=== PATIENT | female | born 1980 ===

== ENCOUNTER 2020-09-02 07:47 | Outpatient (REF) | payer OTHER, SELFPAY ==
--- NOTE | ~2020-09-02 | MM_ITS ---
EXAMINATION: MM DIAGNOSTIC DIGITAL BREAST TOMOSYNTHESIS, BILATERAL US TARGETED BREAST, LEFT CLINICAL INFORMATION: Left breast pain upper outer aspect. Status post bilateral saline breast implants. The lifetime risk of breast cancer based on the Tyrer-Cuzick Model is 7.2%. COMPARISON: Mammography: None TECHNIQUE: Digital mammography is performed in craniocaudal and mediolateral oblique views. Digital breast tomosynthesis is performed in implant-displaced craniocaudal and implant-displaced mediolateral oblique views. Synthesized 2D images are generated from the tomosynthesis. Computer-aided detection (CAD) is performed for this exam. Bilateral implant displaced views. Exaggerated left craniocaudal view. FINDINGS: The breasts are heterogeneously dense, which may obscure small masses (ACR BI-RADS breast composition Category c). The implant contours are unremarkable. In region of palpable abnormality, there is noted to be a circumscribed approximately 1.0 x 0.8 cm density. No suspicious grouping of microcalcifications identified. No region of architectural distortion. Targeted left breast ultrasound demonstrated at the 3 o'clock position in region of palpable abnormality 8 o'clock position 8 cm from the nipple a 9 x 6 x 9 mm simple cyst corresponding to the mammographic abnormality. Results are provided to the patient at time of visit by the technologist. MM/MM tomosynthesis diag imp BI IMPRESSION: Palpable abnormality of the left breast corresponds to a simple cyst. ASSESSMENT: BI-RADS 2: Benign RECOMMENDATION: Routine annual mammography screening due in 12 months. This patient's information was entered into a reminder system with a target due date for their next mammogram.
--- NOTE | ~2020-09-02 | US_ITS ---
EXAMINATION: US DIAGNOSTIC ULTRASOUND BREAST, LEFT CLINICAL INFORMATION: Palpable abnormality and pain upper outer aspect of the left breast.. COMPARISON: Mammography of same day. TECHNIQUE: Ultrasound of the breast is performed with real-time salcido scale imaging and color Doppler. FINDINGS: Targeted left breast ultrasound demonstrated at the 3:00 position in region of palpable abnormality 8:00 position 8 cm from the nipple a 9 x 6 x 9 mm simple cyst corresponding to the mammographic abnormality. Results are provided to the patient at time of visit by the technologist. US/US breast LT limited IMPRESSION: Palpable abnormality of the left breast corresponds to a simple cyst. ASSESSMENT: BI-RADS 2: Benign RECOMMENDATION: Routine annual mammography screening due in 12 months.
== END 2020-09-02 07:48 | disposition home or self-care (01) ==
LOC: HO.MAMMO 07:47
PROVIDERS: PCP Family Medicine; Visit Provider Emergency Medicine
DX: N63.21 Unspecified lump in the left breast, upper outer quadrant (principal)
CPT/HCPCS: 76642; 77062; 77066

== ENCOUNTER → 2020-09-21 10:20 | Outpatient (BNVA) | payer OTHER, SELFPAY | PROVIDERS: PCP Family Medicine; Visit Provider Surgery | DX: N60.02 Solitary cyst of left breast (principal) | CPT/HCPCS: 99202 ==

== ENCOUNTER → 2020-10-27 10:00 | Outpatient (BNVA) | payer OTHER, SELFPAY | PROVIDERS: PCP Family Medicine; Visit Provider Surgery | DX: K43.9 Ventral hernia without obstruction or gangrene (principal) | CPT/HCPCS: 99212 ==

== ENCOUNTER 2020-11-24 07:53 | Outpatient (REF) | payer MEDICAID, SELFPAY ==
--- NOTE | ~2020-11-24 | US_ITS ---
EXAMINATION: US ABDOMEN LIMITED CLINICAL INFORMATION: Swelling above the umbilicus. COMPARISON: Ultrasound abdomen 08/05/2018. TECHNIQUE: Real-time imaging of the right upper quadrant abdominal viscera, superior to umbilicus. FINDINGS: FREE FLUID: There is a defect in the midline abdominal wall and hypoechoic soft tissue suggestive of a small supraumbilical hernia. The neck of the hernia measures 9 mm. No peristalsing bowel is seen and this presumably contains fat. US/US abdomen limited IMPRESSION: Small supraumbilical hernia.
== END 2020-11-24 07:54 | disposition home or self-care (01) ==
LOC: HO.US 07:53
PROVIDERS: PCP Family Medicine; Visit Provider Surgery
DX: K43.9 Ventral hernia without obstruction or gangrene (principal)
CPT/HCPCS: 76705

== ENCOUNTER → 2020-12-09 08:47 | Outpatient (BNVA) | payer MEDICAID, SELFPAY | PROVIDERS: PCP Family Medicine; Referring Provider Family Medicine; Visit Provider Surgery | DX: K43.9 Ventral hernia without obstruction or gangrene (principal) | CPT/HCPCS: 99212 ==

== ENCOUNTER 2021-11-22 07:29 | Outpatient (REF) | payer MEDICAID, SELFPAY ==
--- NOTE | ~2021-11-22 | MM_ITS ---
EXAMINATION: MM SCREENING DIGITAL BREAST TOMOSYNTHESIS, BILATERAL CLINICAL INFORMATION: Screening. Asymptomatic. The lifetime risk of breast cancer based on the Tyrer-Cuzick Model is 7%. COMPARISON: Mammography: 09/02/2020 (diagnostic, baseline); targeted left breast ultrasound 09/02/2020 TECHNIQUE: Digital mammography is performed in craniocaudal and mediolateral oblique views along with computer-aided detection (CAD). Digital breast tomosynthesis is performed in implant-displaced craniocaudal and implant-displaced mediolateral oblique views along with computer-aided detection (CAD). Synthesized 2D images are generated from the tomosynthesis. FINDINGS: There are scattered areas of fibroglandular density (ACR BI-RADS breast composition Category b). Implant contours are smooth and similar to prior study. There is minor bilateral scarring and stable minor asymmetries. No significant mass or architectural abnormality. Left cyst noted on prior imaging appears to have regressed. No abnormal calcifications. The skin contours are smooth. No significant changes. MM/MM tomosynthesis screen imp BI IMPRESSION: No significant changes from prior exam. ASSESSMENT: BI-RADS 2: Benign RECOMMENDATION: Routine annual mammography screening. This patient's information was entered into a reminder system with a target due date for their next mammogram.
== END 2021-11-22 07:30 | disposition home or self-care (01) ==
LOC: HO.MAMMO 07:29
PROVIDERS: Visit Provider Family Medicine
DX: Z12.31 Encounter for screening mammogram for malignant neoplasm of breast (principal)
CPT/HCPCS: 77063; 77067

== ENCOUNTER → 2022-06-07 11:04 | Outpatient (BNVA) | payer MEDICAID, SELFPAY | PROVIDERS: PCP Family Medicine; Referring Provider Family Medicine; Visit Provider Internal Medicine Cardiovascular Disease | DX: R00.2 Palpitations (principal) | CPT/HCPCS: 93005; 99202 ==

== ENCOUNTER → 2022-06-09 07:33 | Outpatient (REF) | payer MEDICAID, SELFPAY ==
--- NOTE | 2022-06-09 07:38 | HM_ITS ---
* Total monitoring time 30 days. Wear time 15 days. Wear time compliance 53%. * Average ventricular rate 79/Min. Range 55 to 141/Min. About 13% the time , rate > 60/Min. * No significant ectopy or other arrhythmias. * No significant bradycardia or pauses. * Patient activations correlated with sinus rhythm or sinus tachycardia. MTDD
--- NOTE | 2022-06-09 07:38 | CA_ITS ---
Transthoracic Echocardiogram Patient (Last, First, Middle): Adleaida Husain B Gender: Female Date of : 1980 Age: 42 Procedure Date: 06/09/2022 Procedure Type: Transthoracic Echocardiogram Location: OP Height: 149.86 cm Weight: 63.5 kg BSA: 1.58 m2 Heart Rate: bpm BP: 125 / 70 mmHg Spa Concierge: Referring MD: Wood Hall MD Health Care Coach: Wood Hall MD Symptoms: R00.2 - Palpitations Study Quality: Good ECG Rhythm: Sinus Conclusions: - Normal LV systolic function with grade 1 diastolic dysfunction, otherwise normal study Findings Left Ventricle Normal left ventricular size, thickness, and systolic function. The visually estimated ejection fraction is between 60-65%. Spectral Doppler is indicative of an impaired relaxation filling pattern. E/E prime ratio is <8, consistent with normal filling pressures. Evidence suggests grade I (mild) diastolic dysfunction. Right Ventricle Normal right ventricular cavity size and systolic function. Atria Both atria are normal in size. There is no evidence of interatrial shunt. Aortic Valve Normal aortic valve structure and function. There is no aortic valve stenosis. There is no aortic valve regurgitation. Mitral Valve Normal mitral valve structure and function. There is trace mitral valve regurgitation. There is no mitral valve stenosis. Pulmonic Valve The pulmonic valve is likely normal. There is trace pulmonic valve regurgitation. Tricuspid Valve Normal tricuspid valve structure. The right ventricular systolic pressure is normal. The right ventricular systolic pressure is 23 mmHg. Normal right atrial pressure. There is no evidence of pulmonary hypertension. Great Vessels All visible segments of the aorta are normal in size. The pulmonary artery was not well visualized. Venous The inferior vena cava is normal in size and collapses greater than 50% with inspiration. Pericardium/Pleural There is no evidence of pericardial effusion. Prior Study Comparison No prior study available for comparison. Measurements 2D Linear Measurements IVSd: 0.92 0.6-0.9/0.6-1.0 cm LVIDd: 4.14 3.9-5.3/4.2-5.9 cm LVIDd Index: 2.62 2.4-3.2/2.2-3.1 cm/m2 LVIDs: 2.57 2.0-3.6 cm LVPWd: 0.91 0.7-1.1 cm Ao Root: 2.80 2.1-3.5 cm LA Diam: 3.40 2.7-3.8/3.0-4.0 cm LAIDs Index: 2.15 1.5-2.3 cm/m2 LV Mass: 147.27 67-162/88-224 g LV Mass Index: 93.21 43-95/49-115 g/m2 LVOT Diam: 1.90 3.0+(-)1.3 cm 2D Systolic Function EF 4C: 65.50 >55% EF 2C: 63.30 >55% EF BiP: 64.10 >55% Mitral Valve MV Pk E: 0.59 MV PK A: 0.80 MV Decel Time: 254.00 E/A: 0.70 E'Lateral: 9.57 E'Medial: 9.14 E/E' Med: 6.50 E/E' Lat: 6.20 PHT: 74.00 MVA PHT: 2.97 Decel Butts: 2.33 Aortic Valve AoV Pk Kirby: 1.19 AoV Mn Kirby: 0.74 AoV VTI: 0.31 AoV Pk Grad: 6.00 Aov Mn Grad: 3.00 ROHAN Cont.VTI: 2.01 LVOT LVOT Pk Kirby: 0.87 LVOT Mn Kirby: 0.53 LVOT VTI: 0.22 LVOT Pk Grad: 3.00 LVOT Mn Grad: 1.00 LVOT Diam: 1.90 LVOT Area: 2.84 Diastolic Function MV Pk E: 0.59 MV Pk A: 0.80 E/A: 0.70 E'Medial: 9.14 E/E' Med: 6.50 E' Laterial: 9.57 E/E' Lat: 6.20 Right Ventricle TAPSE (mm): 26.00 TVS' Kirby: 11.00 Tricuspid Valve TR Pk Kirby: 2.24 TR Pk Grad: 20.00 RA Press: 3.00 RVSP: 23.00 Great Vessels Aorta Ao Root-2D: 2.80 2.0-3.7 cm Ao Asc: 2.70 2.1-3.4 cm Pulmonary Valve PV Pk Kirby: 0.91 Peak PV Grad: 3.00 Updated in Other Vendor System with Status of Final Cristofer Guillen MD electronically signed on 06/10/2022 11:29:38 AM with status of Final
== END ==
LOC: HO.CARD 07:33
PROVIDERS: PCP Family Medicine; Visit Provider Internal Medicine Cardiovascular Disease
DX: R00.2 Palpitations (principal)
CPT/HCPCS: 93270; 93306

== ENCOUNTER 2023-01-16 12:20 | Emergency (ER) | payer OTHER, MEDICAID, SELFPAY ==
[2023-01-16 12:55] VITALS: BP 134/85; PULSE 75; RESP 18; TEMP 36.2; O2SAT 98; BMI 28.6
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
== END 2023-01-16 13:25 | disposition home or self-care (01) ==
PROVIDERS: Emergency Provider Emergency Medicine; PCP Family Medicine
DX: S29.012A Strain of muscle and tendon of back wall of thorax, initial encounter (principal); V43.62XA Car passenger injured in collision with other type car in traffic accident, initial encounter; Y93.9 Activity, unspecified; Y92.410 Unspecified street and highway as the place of occurrence of the external cause; Y99.9 Unspecified external cause status; Z79.899 Other long term (current) drug therapy
CPT/HCPCS: 99282; 99283

== ENCOUNTER 2023-02-20 11:49 | Outpatient (REF) | payer OTHER, MEDICAID, SELFPAY ==
[2023-02-22 09:11] LABS: BV Int Neg Control Negative (Negative); BV Int Pos Control Positive (Positive)
== END 2023-02-20 11:50 | disposition home or self-care (01) ==
LOC: HO.LNP 11:49
PROVIDERS: Visit Provider Family Medicine
DX: B37.31 Acute candidiasis of vulva and vagina (principal); N89.8 Other specified noninflammatory disorders of vagina
CPT/HCPCS: 87086; 87088; 87186; 87480; 87510; 87660

== ENCOUNTER 2023-05-28 10:21 | Outpatient (REF) | payer OTHER, MEDICAID, SELFPAY ==
[2023-05-28 14:25] LABS: MANUAL DIFF FLAG NO
[2023-05-28 14:29] LABS: Basophils Percent Auto 0.5 % (0-2); Eosinophils Absolute Auto 0.1 X10*3/uL (0.0-0.4); Eosinophils Percent Auto 3.7 % (0-4); Hematocrit 43.7 % (37.0-47.0); Hemoglobin 14.4 g/dl (12.0-16.0); Imm Gran Abs Auto 0.01 X10*3/uL (0.00-0.03); Imm Gran Pct Auto 0.3 % (0.0-0.4); Lymphocytes Absolute Auto 1.9 X10*3/uL (1.2-4.9); Lymphocytes Percent Auto 50.9 % (20-40); Mean Corpuscular Hemoglobin 29.6 pg (27.0-33.0); Mean Corpuscular Volume 89.7 fL (80.0-98.0); Mean Platelet Volume 11.3 fL (9.4-12.3); Monocytes Absolute Auto 0.3 X10*3/uL (0.1-1.2); Monocytes Percent Auto 6.6 % (2-11); Neutrophils Absolute Auto 1.4 x10*3/uL (2.0-8.3); Platelet Count 235 X10*3/uL (160-400); Red Blood Count 4.87 X10*6/uL (4.20-5.50); White Blood Count 3.8 X10*3/uL (4.8-10.8)
[2023-05-28 14:39] LABS: Anion Gap 11 (12-20); Blood Urea Nitrogen 9 mg/dL (9-16); Calcium 9.8 mg/dL (8.4-10.2); Carbon Dioxide 27 mmol/L (22-29); Chloride 103 mmol/L (96-108); Estimated Glomerular Filt Rate > 60; Glucose Fasting 98 mg/dL (60-99); Potassium 4.1 mmol/L (3.3-5.1); Sodium 137 mmol/L (135-145)
[2023-05-28 15:09] LABS: Erythrocyte Sedimentation Rate 4 MM/HR (0-20)
[2023-05-29 21:48] LABS: Anti DNA DS Antibody <1 IU/mL
[2023-05-29 23:09] LABS: Complement C3 128 mg/dL (83-193)
[2023-06-01 07:44] LABS: Anti Nuclear Antibody Screen NEGATIVE (NEGATIVE)
== END 2023-05-28 10:22 | disposition home or self-care (01) ==
LOC: HO.CHCLDS 10:21
PROVIDERS: Visit Provider Family Medicine
DX: M32.9 Systemic lupus erythematosus, unspecified (principal); H35.069 Retinal vasculitis, unspecified eye
CPT/HCPCS: 36415; 80048; 85025; 85652; 86038; 86160; 86225

== ENCOUNTER 2023-05-28 13:09 | Emergency (ER) | payer MEDICAID, SELFPAY | END 2023-05-28 16:09 | disposition left against medical advice (07) | PROVIDERS: Emergency Provider Emergency Medicine; PCP Family Medicine | DX: R51.9 Headache, unspecified (principal) ==

== ENCOUNTER 2023-05-29 07:12 | Emergency (ER) | payer MEDICAID, SELFPAY ==
--- NOTE | ~2023-05-29 | CT_ITS ---
EXAMINATION: CT HEAD WITHOUT CONTRAST CLINICAL INFORMATION: Headache COMPARISON: None available. TECHNIQUE: Contiguous axial imaging was performed from the skull base to vertex without intravenous administration of contrast. This CT examination was performed using dose optimization techniques as appropriate, variously including the following: *Automated exposure control *Adjustment of mA and/or kV according to patient size (this includes techniques or standardized protocols for targeted exams where dose is matched to indication/reason for exam; i.e. extremities or head) *Use of iterative reconstruction technique DLP: 545 mGy-cm FINDINGS: The ventricles and sulci are normal in size and configuration. No acute hemorrhage, mass effect or shift is evident. Villa-white differentiation is maintained. In the posterior fossa, the brainstem, cerebellum and fourth ventricle image normally. The orbits and calvarium are intact. The paranasal sinuses and mastoid air cells are well pneumatized and clear. CT/CT head/brain wo IV con IMPRESSION: 1. Unremarkable noncontrast brain CT. No acute hemorrhage, mass effect or shift.
[2023-05-29 07:17] VITALS: BP 111/75; PULSE 78; RESP 18; TEMP 36.1; O2SAT 97; BMI 28.3
--- NOTE | 2023-05-29 07:57 | ED_ITS ---
HPI - Headache General Chief Complaint: Headache Stated Complaint: Headache L side Time Seen by Provider: 05/29/23 07:56 Source: patient Mode of arrival: ambulatory Limitations: no limitations History of Present Illness HPI Narrative: 43-year-old female presents to the emergency department for evaluation of headache, the past few days not improving, patient reports headaches localized to the back of her head worse on the left side, describes sharp, intermittent pain, /10, she tells me this weekend the pain was much worse. Denies any associated trauma. Tells me this does not feel like her typical headache it feels more painful and is usually not the back of her head. Patient denies dizziness, visual disturbances, sinus pain or pressure, nausea, vomiting, abdominal pain, changes in voice, weakness, fevers, chills, neck pain. Related Data Previous Rx's Medication Instructions Recorded cyclobenzaprine 5 mg tablet 5 mg PO TID PRN muscle spasm #12 01/16/23 tabs lidocaine 5 % topical patch 1 patch topical DAILY #15 ea 01/16/23 ketorolac 10 mg tablet 10 mg PO TID PRN pain 5 days #15 05/29/23 tabs Allergies Allergy/AdvReac Type Severity Reaction Status Date / Time No Known Allergies Allergy Verified 05/29/23 07:22 Review of Systems 2 Review of Systems: Constitutional : No Weight loss, No Fever, No Chills, No Fatigue, No Malaise ENT/Mouth : No sore throat, No Rhinorrhea Eyes: No Eye Pain, No Swelling, No Redness Cardiovascular : No Chest Pain, No SOB, No Dyspnea on Exertion, No Orthopnea, No Edema, No Palpitations Respiratory : No Cough, No Sputum, No Wheezing Gastrointestinal : No Nausea, No Vomiting, No Diarrhea, No Constipation, No abdominal Pain, No Hematochezia, No Melena Genitourinary : No Dysuria, No Urinary Frequency, No Hematuria, Musculoskeletal : No joint pain, No Myalgias, No Joint Swelling Skin : No Skin Lesions, No rash Neuro : No Weakness, No Numbness, No Dizziness, + Headache Psych : No Anxiety/Panic, No Depression All other systems reviewed and are negative Yes all other systems are reviewed and are negative [facility] Past Medical History Attestation statement: The following information was validated with the patient. Source: old records reviewed and nursing notes reviewed Medical History (Updated 05/29/23 @ 09:14 by HODA Burger) Lupus Surgical History History of abdominoplasty History of breast augmentation (2018) Social History Social History (Updated 06/07/22 @ 11:28 by Krista Avendaño) Alcohol intake: current Alcohol intake frequency: holidays/special occasions only Alcohol type: hard liquor Advance Directives: No Advance Directives Information Provided: No Physical Exam 2 Vital Signs: Vital Signs: Last Vital Signs Temp 98.3 F 05/29/23 08:36 Pulse 67 05/29/23 08:36 Resp 16 05/29/23 08:36 BP 112/75 05/29/23 08:36 Pulse Ox 100 05/29/23 08:36 O2 Del Method Room Air 05/29/23 08:36 BMI result Body Mass Index 28.3 vss Appearance: Alert.? Oriented X3.? No acute distress.? Head: Normocephalic, atraumatic, no step-offs or deformities Eyes: Pupils equal, round and reactive to light.? CVS: Normal heart rate and rhythm.? Pulses normal.? Respiratory: No respiratory distress.? Breath sounds normal.? Abdomen: Soft and nontender.? Skin: Skin warm and dry.? Normal skin color.? Normal skin turgor.? Extremities: No lower extremity edema.? No calf ttp. 5/5 strength to bilateral upper and lower extremities Back: No midline tenderness, no C-spine tenderness, full range of motion, no CVA tenderness bilaterally Neuro: Oriented X 3.? No motor deficit.? No sensory deficit. CN 2-12 intact . 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 Normal finger to nose, heel to ross, steady tandem gait w/ normal coordination. NIHSS- 0 Course Reevaluation(s) Reevaluation #1: Patient's CBC within normal limits. Normal ESR. Chemistry unremarkable. CRP negative. Head CT unremarkable. No acute hemorrhage, mass effect or shift. Patient's neurological assessment unremarkable. at this time patient to be discharged home. Given Toradol for pain Educated patient on diagnosis and treatment plan, answered all question, patient verbalizes understanding. At this time patient will be discharged home, advised to return with new or worsening symptoms. Educated on worrisome signs and symptoms and when to return. At this time I feel comfortable discharge home. Time: 09:51 Medications Administered Discontinued Medications Generic Name Dose Route Start Last Admin Trade Name Liz PRN Reason Stop Dose Admin Ketorolac Tromethamine 15 mg 05/29/23 09:15 05/29/23 09:22 Ketorolac Tromethamine 15 Mg/Ml Vial IM 05/29/23 09:16 15 mg ONCE ONE Administration Medical Decision Making Medical Decision Making [facility] Narrative: [id number] 43 year old female presents w/ headache X few days not improving, worse on left side. Doesnt feel like typical PE benign NIHSS- 0 Concerns for headache versus migraine. Unlikely intracranial hemorrhage, stroke, posterior stroke, encephalitis, meningitis, pseudotumor cerebri, temporal arteritis Head CT not indicated but patient stating she needs one she insists this doesn't feel normal. Plan migraine cocktail, basic labs, inflammatory markers, imaging Differential Diagnosis Differential Diagnoses: The differential diagnosis associated with the presentation includes Concerns for headache versus migraine. Unlikely intracranial hemorrhage, stroke, posterior stroke, encephalitis, meningitis, pseudotumor cerebri, temporal arteritis Admission/Observation Consideration of admission/observation: Escalation of care including admission/observation considered Unlikely Lab Data [facility] Lab Attestation statement: I reviewed the patient's lab results. 05/29/23 08:14 05/29/23 08:14 Labs: Lab Results 05/29/23 Range/Units 08:14 WBC 3.7 L (4.8-10.8) X10*3/uL RBC 4.77 (4.20-5.50) X10*6/uL Hgb 14.0 (12.0-16.0) g/dl Hct 42.1 (37.0-47.0) % MCV 88.3 (80.0-98.0) fL MCH 29.4 (27.0-33.0) pg MCHC 33.3 (31.0-35.0) g/dl RDW 11.9 (11.0-16.0) % Plt Count 209 (160-400) X10*3/uL MPV 10.5 (9.4-12.3) fL Immature Gran % (Auto) 0.3 (0.0-0.4) % Neut % (Auto) 42.0 L (45-73) % Lymph % (Auto) 44.8 H (20-40) % Gilliam % (Auto) 8.6 (2-11) % Eos % (Auto) 3.8 (0-4) % Baso % (Auto) 0.5 (0-2) % Lymph # (Auto) 1.7 (1.2-4.9) X10*3/uL Gilliam # (Auto) 0.3 (0.1-1.2) X10*3/uL Eos # (Auto) 0.1 (0.0-0.4) X10*3/uL Baso # (Auto) 0.0 (0.0-0.2) X10*3/uL Abs Immat Gran (auto) 0.01 (0.00-0.03) X10*3/uL Absolute Neuts (auto) 1.6 L (2.0-8.3) x10*3/uL Absolute Nucleated RBC 0.000 (0.0-0.012) X10*3/uL Nucleated RBC % (auto) 0.0 (0.0-0.2) /100WBC ESR 2 (0-20) MM/HR Sodium 141 (135-145) mmol/L Potassium 4.2 (3.3-5.1) mmol/L Chloride 107 (96-108) mmol/L Carbon Dioxide 26 (22-29) mmol/L Anion Gap 12 (12-20) BUN 10 (9-16) mg/dL Creatinine 0.83 (0.5-1.4) mg/dL Estim Creat Clear Calc 71.5 Estimated GFR > 60 Random Glucose 100 (60-115) mg/dL Calcium 9.2 D (8.4-10.2) mg/dL Total Bilirubin 0.5 (0.0-1.0) mg/dL AST 17 (5-31) U/L ALT 15 (0-31) U/L Alkaline Phosphatase 51 (39-117) U/L C-Reactive Protein 0.19 (< or = 0.50) mg/dL Total Protein 7.6 (6.5-8.0) g/dL Albumin 4.4 (3.5-5.0) g/dL Independent Interpretation I performed an independent interpretation of an: CT Scan Radiology Impression Discussion of test interpretation with radiology: I have reviewed the radiologist's reading. Prescription Management I considered prescription management with: Other (ketoralac) Discharge Plan Discharge Clinical Impression: Headache Patient Disposition: Home, Self-Care Instructions: Acute Headache (ED) Additional Instructions: Take your medications as prescribed. If you were prescribed antibiotics today, it is important that you take your medication to their entirety, do not skip any doses, do not finish them early. Follow-up with your primary care provider this week. Return to the emergency department with new or worsening symptoms. Such as fevers, chills, chest pain, shortness of breath, nausea, vomiting, dizziness, headache, vision changes, lethargy In case of emergency call 911 CT/CT head/brain wo IV con IMPRESSION: 1. Unremarkable noncontrast brain CT. No acute hemorrhage, mass effect or shift. Prescriptions: New ketorolac 10 mg tablet 10 mg PO TID PRN (Reason: pain) 5 Days Qty: 15 0RF No Action lidocaine 5 % adhesive patch,medicated 1 patch topical DAILY Qty: 15 0RF Rx Instructions: leave on most painful area for up to 12 hrs cyclobenzaprine 5 mg tablet 5 mg PO TID PRN (Reason: muscle spasm) Qty: 12 0RF Referrals: Yarely Kruger MD [Primary Care Provider] - 2 days Stand Alone Forms: Work/School Release Interventions: ED Discharge Assessment Last Done: 05/29/23 09:29 Discharge Date/Time: 05/29/23 09:29
--- NOTE | 2023-05-29 07:57 | ED_ITS ---
HPI - General Adult General Chief complaint: Headache Stated complaint: Headache L side Time Seen by Provider: 05/29/23 07:56 Source: patient Mode of arrival: ambulatory Limitations: no limitations History of Present Illness HPI narrative: Patient is a 43-year-old female with a PMH of palpitations, ventral hernia, and cyst of the left breast presenting with headache at the back of the head x 4 days. Described the pain as intermittent, sharp, and worsening. Reports this has happened before but this is worse. Denies fever, chills, vision changes, imbalance, dysarthria, neck pain, sinus pressure/pain, nausea, vomiting, weakness, numbess, and tingling. Related Data Home Medications ?Medication ?Instructions ?Recorded ?Confirmed No Known Home Meds 09/11/23 09/11/23 Allergies Allergy/AdvReac Type Severity Reaction Status Date / Time No Known Allergies Allergy Verified 09/11/23 22:36 Review of Systems 2 Review of Systems: Constitutional : No Weight loss, No Fever, No Chills, No Fatigue, No Malaise ENT/Mouth : No sore throat, No Rhinorrhea Eyes: No Eye Pain, No Swelling, No Redness Cardiovascular : No Chest Pain, No SOB, No Dyspnea on Exertion, No Orthopnea, No Edema, No Palpitations Respiratory : No Cough, No Sputum, No Wheezing Gastrointestinal : No Nausea, No Vomiting, No Diarrhea, No Constipation, No abdominal Pain, No Hematochezia, No Melena Genitourinary : No Dysuria, No Urinary Frequency, No Hematuria, Musculoskeletal : No joint pain, No Myalgias, No Joint Swelling Skin : No Skin Lesions, No rash Neuro : +headache, No Weakness, No Numbness, No Dizziness, No Headache All other systems reviewed and are negative Yes all other systems are reviewed and are negative [facility] Past Medical History Medical History Lupus Surgical History History of abdominoplasty History of breast augmentation (2018) Social History Social History Alcohol intake: current Alcohol intake frequency: holidays/special occasions only Alcohol type: hard liquor Physical Exam ED Vital Signs: Vital Signs - 24 hr 11/07/23 07:17 Temperature 97.0 F Pulse Rate 78 Respiratory Rate 18 Blood Pressure 111/75 Pulse Oximetry 97 Oxygen Delivery Method Room Air BMI result Body Mass Index 28.3 vss Appearance: Alert.? Oriented X3.? No acute distress.? Head: Normocephalic, atraumatic, no step-offs or deformities Eyes: Pupils equal, round and reactive to light.? ENT: Pharynx normal.??External ears normal, TMs normal bilaterally and EAC's normal. No pain with manipulation of external ears bilaterally. No mastoid tenderness. Neck: Normal inspection.? Neck supple.? CVS: Normal heart rate and rhythm.? Pulses normal.? Respiratory: No respiratory distress.? Breath sounds normal.? Abdomen: Soft and nontender.? Skin: Skin warm and dry.? Normal skin color.? Normal skin turgor.? Extremities: No lower extremity edema.? No calf ttp. 5/5 strength to bilateral upper and lower extremities Back: No midline tenderness, no C-spine tenderness, full range of motion, no CVA tenderness bilaterally Neuro: Oriented X 3.? No motor deficit.? No sensory deficit. CN 2-12 intact Medications Administered Discontinued Medications Generic Name Dose Route Start Last Admin Trade Name Freq PRN Reason Stop Dose Admin Ketorolac Tromethamine 15 mg 05/29/23 09:15 05/29/23 09:22 Ketorolac Tromethamine 15 Mg/Ml Vial IM 05/29/23 09:16 15 mg ONCE ONE Administration Medical Decision Making Lab Data 05/29/23 08:14 05/29/23 08:14 Labs: Lab Results 05/29/23 Range/Units 08:14 WBC 3.7 L (4.8-10.8) X10*3/uL RBC 4.77 (4.20-5.50) X10*6/uL Hgb 14.0 (12.0-16.0) g/dl Hct 42.1 (37.0-47.0) % MCV 88.3 (80.0-98.0) fL MCH 29.4 (27.0-33.0) pg MCHC 33.3 (31.0-35.0) g/dl RDW 11.9 (11.0-16.0) % Plt Count 209 (160-400) X10*3/uL MPV 10.5 (9.4-12.3) fL Immature Gran % (Auto) 0.3 (0.0-0.4) % Neut % (Auto) 42.0 L (45-73) % Lymph % (Auto) 44.8 H (20-40) % Harding % (Auto) 8.6 (2-11) % Eos % (Auto) 3.8 (0-4) % Baso % (Auto) 0.5 (0-2) % Lymph # (Auto) 1.7 (1.2-4.9) X10*3/uL Harding # (Auto) 0.3 (0.1-1.2) X10*3/uL Eos # (Auto) 0.1 (0.0-0.4) X10*3/uL Baso # (Auto) 0.0 (0.0-0.2) X10*3/uL Abs Immat Gran (auto) 0.01 (0.00-0.03) X10*3/uL Absolute Neuts (auto) 1.6 L (2.0-8.3) x10*3/uL Absolute Nucleated RBC 0.000 (0.0-0.012) X10*3/uL Nucleated RBC % (auto) 0.0 (0.0-0.2) /100WBC ESR 2 (0-20) MM/HR Sodium 141 (135-145) mmol/L Potassium 4.2 (3.3-5.1) mmol/L Chloride 107 (96-108) mmol/L Carbon Dioxide 26 (22-29) mmol/L Anion Gap 12 (12-20) BUN 10 (9-16) mg/dL Creatinine 0.83 (0.5-1.4) mg/dL Estim Creat Clear Calc 71.5 Estimated GFR > 60 Random Glucose 100 (60-115) mg/dL Calcium 9.2 D (8.4-10.2) mg/dL Total Bilirubin 0.5 (0.0-1.0) mg/dL AST 17 (5-31) U/L ALT 15 (0-31) U/L Alkaline Phosphatase 51 (39-117) U/L C-Reactive Protein 0.19 (< or = 0.50) mg/dL Total Protein 7.6 (6.5-8.0) g/dL Albumin 4.4 (3.5-5.0) g/dL Discharge Plan Discharge Clinical Impression: Headache Patient Disposition: Home, Self-Care Instructions: Acute Headache (ED) Additional Instructions: Take your medications as prescribed. If you were prescribed antibiotics today, it is important that you take your medication to their entirety, do not skip any doses, do not finish them early. Follow-up with your primary care provider this week. Return to the emergency department with new or worsening symptoms. Such as fevers, chills, chest pain, shortness of breath, nausea, vomiting, dizziness, headache, vision changes, lethargy In case of emergency call 911 CT/CT head/brain wo IV con IMPRESSION: 1. Unremarkable noncontrast brain CT. No acute hemorrhage, mass effect or shift. Prescriptions: No Action No Known Home Meds Referrals: Yarely Kruger MD [Primary Care Provider] - 2 days Stand Alone Forms: Work/School Release Interventions: ED Discharge Assessment Last Done: 05/29/23 09:29 Discharge Date/Time: 05/29/23 09:29 Print Language: Italian
[2023-05-29 08:22] LABS: MANUAL DIFF FLAG NO
[2023-05-29 08:24] LABS: Basophils Percent Auto 0.5 % (0-2); Eosinophils Absolute Auto 0.1 X10*3/uL (0.0-0.4); Eosinophils Percent Auto 3.8 % (0-4); Hematocrit 42.1 % (37.0-47.0); Imm Gran Abs Auto 0.01 X10*3/uL (0.00-0.03); Imm Gran Pct Auto 0.3 % (0.0-0.4); Lymphocytes Absolute Auto 1.7 X10*3/uL (1.2-4.9); Lymphocytes Percent Auto 44.8 % (20-40); Mean Corpuscular HGB Conc 33.3 g/dl (31.0-35.0); Mean Corpuscular Hemoglobin 29.4 pg (27.0-33.0); Mean Corpuscular Volume 88.3 fL (80.0-98.0); Mean Platelet Volume 10.5 fL (9.4-12.3); Monocytes Absolute Auto 0.3 X10*3/uL (0.1-1.2); Monocytes Percent Auto 8.6 % (2-11); Neutrophils Absolute Auto 1.6 x10*3/uL (2.0-8.3); Platelet Count 209 X10*3/uL (160-400); Red Blood Count 4.77 X10*6/uL (4.20-5.50); Red Cell Distribution Width 11.9 % (11.0-16.0); White Blood Count 3.7 X10*3/uL (4.8-10.8)
[2023-05-29 08:36] VITALS: BP 112/75; PULSE 67; RESP 16; TEMP 36.8; O2SAT 100
[2023-05-29 08:40] LABS: Alanine Aminotransferase 15 U/L (0-31); Albumin Level 4.4 g/dL (3.5-5.0); Alkaline Phosphatase 51 U/L (39-117); Anion Gap 12 (12-20); Aspartate Amino Transferase 17 U/L (5-31); Bilirubin Total 0.5 mg/dL (0.0-1.0); Blood Urea Nitrogen 10 mg/dL (9-16); C Reactive Protein 0.19 mg/dL (< or = 0.50); Calcium 9.2 mg/dL (8.4-10.2); Carbon Dioxide 26 mmol/L (22-29); Chloride 107 mmol/L (96-108); Creatinine Clr Calc Pharmacy 71.5; Estimated Glomerular Filt Rate > 60; Glucose Random 100 mg/dL (60-115); Potassium 4.2 mmol/L (3.3-5.1); Sodium 141 mmol/L (135-145); Total Protein 7.6 g/dL (6.5-8.0)
[2023-05-29 09:09] LABS: Erythrocyte Sedimentation Rate 2 MM/HR (0-20)
[2023-05-29] MEDS: Ketorolac Tromethamine 15 MG/ML VIAL IM (09:22)
== END 2023-05-29 09:29 | disposition home or self-care (01) ==
PROVIDERS: Physician Assistant; Emergency Provider Student in an Organized Health Care Education/Training Program; PCP Family Medicine
DX: R51.9 Headache, unspecified (principal)
CPT/HCPCS: 36415; 70450; 80053; 85025; 85652; 86140; 96374; 99284; J1885

== ENCOUNTER 2023-06-05 09:34 | Outpatient (REF) | payer MEDICAID, SELFPAY ==
[2023-06-05 15:06] LABS: Appearance Urine Clear; Color Urine Yellow; Glucose Urine UA Negative (Negative); Leukocyte Esterase Urine Negative (Negative); Nitrite Urine Negative (Negative); PH 5.5 (5.0-9.0); Urine Blood Negative (Negative); Urine Ketones Negative (Negative); Urine Protein Negative (Neg-Trace)
== END 2023-06-05 09:35 | disposition home or self-care (01) ==
LOC: HO.CHCLNP 09:34
PROVIDERS: Visit Provider Family Medicine
DX: M32.9 Systemic lupus erythematosus, unspecified (principal); H35.069 Retinal vasculitis, unspecified eye
CPT/HCPCS: 81003

== ENCOUNTER 2023-07-20 11:14 | Outpatient (REF) | payer MEDICAID, SELFPAY ==
[2023-07-20 18:43] LABS: CT PCR NOT DETECTED (Not Detect.); NG PCR NOT DETECTED (Not Detect.)
[2023-07-23 03:46] LABS: HIV AB/AG Nonreactive (Nonreactive); HIV Num 1 0.06 S/CO (0.00-0.99)
[2023-07-24 12:23] LABS: RPR Rapid Plasma Reagin NON-REACTIVE (NON-REACTIVE)
[2023-07-26 09:59] LABS: HPV mRNA E6/E7 rflx Not Detected (Not Detected)
== END 2023-07-20 11:15 | disposition home or self-care (01) ==
LOC: HO.HHCL 11:14
PROVIDERS: Visit Provider Family Medicine
DX: Z12.4 Encounter for screening for malignant neoplasm of cervix (principal); Z11.3 Encounter for screening for infections with a predominantly sexual mode of transmission; Z11.51 Encounter for screening for human papillomavirus (HPV)
CPT/HCPCS: 0353U; 36415; 86592; 87389; 87624; 88142

== ENCOUNTER 2023-08-30 15:16 | Outpatient (REF) | payer MEDICAID, SELFPAY ==
--- NOTE | ~2023-08-30 | MM_ITS ---
EXAMINATION: MM SCREENING DIGITAL BREAST TOMOSYNTHESIS, BILATERAL CLINICAL INFORMATION: Screening. Asymptomatic. COMPARISON: Mammography: This study is compared with the prior exams dating back to 2020. TECHNIQUE: Digital mammography is performed in craniocaudal and mediolateral oblique views along with computer-aided detection (CAD). Digital breast tomosynthesis is performed in implant-displaced craniocaudal and implant-displaced mediolateral oblique views along with computer-aided detection (CAD). Synthesized 2D images are generated from the tomosynthesis. FINDINGS: There are scattered areas of fibroglandular density (ACR BI-RADS breast composition Category b). There are bilateral, mammographically intact, retropectoral silicone breast implants. There are no significant masses, abnormal calcifications, or other abnormalities. MM/MM tomosynthesis screen imp BI IMPRESSION: There are no significant changes from prior study. ASSESSMENT: BI-RADS BI-RADS 1 - Negative RECOMMENDATION: Routine annual mammography screening. 1 year F/U This patient's information was entered into a reminder system with a target due date for their next mammogram.
== END 2023-08-30 15:17 | disposition home or self-care (01) ==
LOC: HO.MAMMO 15:16
PROVIDERS: PCP Family Medicine; Visit Provider Family Medicine
DX: Z12.31 Encounter for screening mammogram for malignant neoplasm of breast (principal)
CPT/HCPCS: 77063; 77067

== ENCOUNTER → 2023-08-30 15:30 | Outpatient (BNV) | payer MEDICAID, SELFPAY | PROVIDERS: PCP Family Medicine; Visit Provider Radiology Diagnostic Radiology | DX: Z12.31 Encounter for screening mammogram for malignant neoplasm of breast (principal) | CPT/HCPCS: 77063; 77067 ==

== ENCOUNTER 2023-09-11 15:38 | Outpatient (AMB) | payer MEDICAID, SELFPAY ==
--- NOTE | 2023-09-11 15:41 | MHC.OFFVIS ---
Intake Intake Visit Reasons: urinary incontinence R32 Intake Note: New Patient presents for initial visit for urinary incontinence Urology Medications: none Blood Thinner: none Patient stated when she cough, leaks a lot of urine. 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 She has a past medical history of lupus. She presents to the office today as a new patient for stress urinary incontinence. In discussion with the patient today she reports symptoms to have been present for quite some time however does feel they are worsening at times. When asked she reports having had for children. Two vaginally into via . She reports biggest baby was approximately 8 lb. She reports episodes of incontinence with coughing, sneezing, laughing, and increased physical activity. She otherwise denies urinary urgency, urinary frequency, nocturia, hematuria, dysuria, foul smelling urine, changes to urinary stream, flank pain, fever, and or chills. Discussed at length potential causes for stress incontinence as well as further treatment options. Discussed pelvic floor therapy, pharmacological interventions, urodynamics, and in office cystoscopy for further assessment evaluation. In office urinalysis results reviewed with the patient today. PVR 0 mL. She otherwise offers no other issues or concerns at this time. [facility] Medical History Lupus Surgical History History of abdominoplasty History of breast augmentation (2018) Social History Alcohol intake: current Alcohol intake frequency: holidays/special occasions only Alcohol type: hard liquor Review of Systems Const All systems reviewed & are unremarkable except as noted in HPI and below Physical Exam Const General: cooperative, healthy appearing, comfortable, no acute distress, well developed, alert and awake Orientation/consciousness: patient oriented x3 Limitations: no limitations HEENT Head: Yes normal to inspection, Yes normocephalic and Yes atraumatic Ears: hearing grossly normal bilaterally Eyes General: appearance normal, both eyes and all related structures Neck Neck: Yes normal visual inspection and Yes trachea midline Chest Chest palpation & inspection: normal inspection of the chest Resp Effort & Inspection: normal respiratory effort and able to speak in complete sentences Cardio Rate: regular rate GI Inspection: Yes normal to inspection General: Yes no CVA tenderness Back/Spine/Pelvis Back: no CVA tenderness Skin General skin exam: no rashes or lesions noted Neuro General: patient oriented x3 Extrem General: Yes normal to inspection Psych Appearance: grossly normal and well kempt Mental Status: mental status grossly normal Speech and movement: Normal speech and movement present and Clear speech present Affect: normal affect Attitude: cooperative Thought process: Normal thought process present Thought content: Normal thought content present Insight: Fair insight present (Psych) Judgement: Fair judgement present (Psych) Office Procedures Post Void Residual Post Residual Void Post Void Residual (PVR): 0 13259-[id number] Void Residual by ultrasound Results AMB Urinalysis, Automated UA Leukoctes 0 Kait/uL Last Edit by Livia Diego [facility] on 09/11/23 16:03 UA Nitrite Negative Last Edit by Livia Diegojaren Diego [facility] on 09/11/23 16:03 UA Urobilinogen 0.2 mg/dL Last Edit by Livia Diego [facility] on 09/11/23 16:03 UA Protein 0 mg/dL Last Edit by Livia Diego [facility] on 09/11/23 16:03 UA pH 6.0 Last Edit by Livia Diegojaren Diego [facility] on 09/11/23 16:03 UA Blood 0 Prabhu/uL Last Edit by Livia Diegojaren Diego [facility] on 09/11/23 16:03 UA Specific Zenda 1.030 Last Edit by Livia Diegojaern Diego [facility] on 09/11/23 16:03 UA Ketone Negative Last Edit by Livia Diego [facility] on 09/11/23 16:03 UA Bilirubin 0 mg/dL Last Edit by Livia Diegojaren Diego [facility] on 09/11/23 16:03 UA Glucose 0 mg/dL Last Edit by Livia Diegojaren Diego [facility] on 09/11/23 16:03 Results Reviewed Results Reviewed: Laboratory Last Values Urine pH (Auto) 6.0 09/11/23 15:50 Specific Zenda (Auto) 1.030 09/11/23 15:50 Urine Protein (Auto) 0 mg/dL 09/11/23 15:50 Glucose (UA)(Auto) 0 mg/dL 09/11/23 15:50 Urine Ketones (Auto) Negative 09/11/23 15:50 Urine Blood (Auto) 0 Prabhu/uL 09/11/23 15:50 Urine Nitrite (Auto) Negative 09/11/23 15:50 Urine Bilirubin (Auto) 0 mg/dL 09/11/23 15:50 Urine Urobilinogen (Auto) 0.2 mg/dL 09/11/23 15:50 Leukocyte Esterase (Auto) 0 Kait/uL 09/11/23 15:50 Assessment & Plan Assessment & Plan (1) Stress incontinence: Code(s): N39.3 - Stress incontinence (female) (male) Plan In office urinalysis results reviewed with the patient today; as noted above. PVR 0 mL. Discussed at length potential causes of stress urinary incontinence. Will refer to pelvic floor therapy for further assessment evaluation. Discussed at length further treatment options with pharmacological, in office cystoscopy and or urodynamics for further assessment evaluation. Will obtain retroperitoneal ultrasound for further assessment evaluation. Follow-up in 3 months with imaging to be completed prior; or sooner with any issues, concerns, and or questions. Orders: Orders AMB Urinalysis Automated Today R33.9 - Retention of urine, unspecified US retroperitoneal comp Today N39.3 - Stress incontinence (female) (male) AMB Post Void Residual by ultrasound Today R33.9 - Retention of urine, unspecified Referrals Pelvic Bench Chemist Referral N39.3 - Stress incontinence (female) (male) Patient Instructions: The patient had an opportunity to ask questions regarding the treatment plan. All questions were answered. Physical exam, labs, and imaging were discussed and reviewed in detail. As well as risks, benefits, and discussion of treatment choices. No major barriers to understanding were identified. The patient expressed understanding and agreement with the above treatment plan. The patient was made aware they should contact our office by phone for worsening of their current condition, the appearance of new symptoms, or with any questions or concerns. Compliance is encouraged with any medications and follow up testing that is ordered. It is a privilege to be allowed the opportunity to participate in? your urological care.? Again, if you have any questions or concerns If you have any questions or concerns please do not hesitate to contact me. The office is [phone]. This note is constructed using voice recognition software. While every effort has been made to ensure accuracy paper twister tender errors may have been included. Yours sincerely, KALEN Reich Coding Level of Care Code New Pt Level 3 (11515) Diagnoses Stress incontinence N39.3 CPT Codes Post Residual Void - PVR CPT Code: 45421-[id number] Void Residual by ultrasound ([id number])
== END 2023-09-11 16:26 | disposition home or self-care (01) ==
PROVIDERS: PCP Family Medicine; Visit Provider Nurse Practitioner Family
DX: N39.3 Stress incontinence (female) (male) (principal)
CPT/HCPCS: 99203

== ENCOUNTER → 2023-09-11 15:38 | Outpatient (BNVA) | payer MEDICAID, SELFPAY | PROVIDERS: PCP Family Medicine; Visit Provider Nurse Practitioner Family | DX: N39.3 Stress incontinence (female) (male) (principal) | CPT/HCPCS: 51798; 81003; 99212 ==

== ENCOUNTER 2023-09-13 09:20 | Outpatient (REF) | payer MEDICAID, SELFPAY ==
--- NOTE | 2023-09-13 09:24 | EMG_ITS ---
Bilateral median and ulnar motor and sensory studies were performed. Bilateral radial and median and lateral antecubital brachial sensory studies were performed and paraspinal muscles were tested with a needle. IMPRESSION: Moderately severe bilateral median neuropathy across carpal tunnel. MD GRAEME Elder/YONNY / [id number]
== END 2023-09-13 09:21 | disposition home or self-care (01) ==
LOC: HO.NEURO 09:20
PROVIDERS: PCP Family Medicine; Visit Provider Family Medicine
DX: R20.0 Anesthesia of skin (principal)
CPT/HCPCS: 95886; 95913

== ENCOUNTER 2023-10-22 15:02 | Outpatient (REF) | payer MEDICAID, SELFPAY ==
--- NOTE | ~2023-10-22 | US_ITS ---
EXAMINATION: US LOWER EXTREMITY, NONVASCULAR, RIGHT CLINICAL INDICATION: Pain behind the right knee. COMPARISON: None available. TECHNIQUE: Using a linear transducer with grayscale and color modalities, ultrasound examination is performed of the right popliteal fossa. FINDINGS: The cutaneous, subcutaneous, muscular and fascial planes are unremarkable. No cyst is seen. There is no solid mass or lymphadenopathy. US/US extremity nonvascular marin IMPRESSION: Unremarkable examination. No Kowalski's cyst is noted of the right popliteal fossa.
== END 2023-10-22 15:03 | disposition home or self-care (01) ==
LOC: HO.US 15:02
PROVIDERS: PCP Family Medicine; Visit Provider Family Medicine
DX: M25.561 Pain in right knee (principal)
CPT/HCPCS: 76882

== ENCOUNTER 2023-11-19 14:18 | Outpatient (AMB) | payer MEDICAID, SELFPAY ==
--- NOTE | 2023-11-19 14:25 | MHC.OFFVIS ---
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 Stats CTS presents for appt - and has not improved. She has tried wearing braces in the past, about 17 years ago. Feels that now her hands get numb and tingly for no reason . Reports pain when grabbing things. EMG done with Dr. Fishman. 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 She states she has intermittent numbness and tingling in her hand which comes with any activities such as brushing, using the bathroom or watching TV. She also c/o pain with grabbing items. She has tried wearing braces about 17 years ago. [facility] Medical History Lupus Surgical History History of abdominoplasty History of breast augmentation (2018) Social History (Updated 11/19/23 @ 14:30 by RODNEY Jaffe) Alcohol intake: current Alcohol intake frequency: holidays/special occasions only Alcohol type: hard liquor Patient Tobacco Use Status: Never used Tobacco Current occupation: right handed Review of Systems Const All systems reviewed & are unremarkable except as noted in HPI and below Physical Exam Vital Signs: BMI result Body Mass Index 27.7 Const General: cooperative, healthy appearing, comfortable, no acute distress, well developed and alert Orientation/consciousness: patient oriented x3 HEENT Head: Yes normal to inspection, Yes normocephalic and Yes atraumatic Eyes General: appearance normal, both eyes and all related structures Neck Neck: Yes normal visual inspection and Yes no lymphadenopathy Resp Effort & Inspection: normal respiratory effort and able to speak in complete sentences Cardio Rate: regular rate Peripheral pulses: Peripheral pulses 2+ throughout GI Inspection: Yes normal to inspection Palpation (GI): Soft to palpation Skin General skin exam: no rashes or lesions noted Lesions: no lesions Rashes: no rashes Neuro General: patient oriented x3 Extrem Other: Bilateral wrist: Normal to inspection. Tenderness over the carpal canal. Numbness and tingling over the median nerve distribution of the right hand. Able to make a full fist and fully extend all fingers. Positive Tinel's on the right wrist. Psych Appearance: grossly normal Mental Status: mental status grossly normal Results Reviewed Results Reviewed: 09/13/23 IMPRESSION: Moderately severe bilateral median neuropathy across carpal tunnel. Assessment & Plan Assessment & Plan (1) Bilateral carpal tunnel syndrome: Code(s): G56.03 - Carpal tunnel syndrome, bilateral upper limbs Category: Medical Plan We discussed options which include conservative vs operative treatment. Since the patient has been symptomatic for several months and it is impacting their daily life, the decision was made to undergo right carpal tunnel release. We discussed risk, benefits and alternatives. Risk including but not limited to infection, weakness, stiffness, ongoing numbness or tingling. The patient does understand all this and would like to proceed with left carpal tunnel release with Dr. Reddy. They will be booked accordingly. Patient Instructions: Scribed for Last Harper PA-C, by Randy Law electromedical equipment repairer, on 11/19/2023 at 2:15 PM EST. I, Last Harper PA-C, have personally reviewed and agree with the information entered by the scribe. Coding Level of Care Code New Pt Level 4 (49227) Diagnoses Bilateral carpal tunnel syndrome G56.03
[2023-11-19 14:29] VITALS: BMI 27.7
== END 2023-11-19 15:01 | disposition home or self-care (01) ==
PROVIDERS: PCP Family Medicine; Referring Provider Family Medicine; Visit Provider Orthopaedic Surgery
DX: G56.03 Carpal tunnel syndrome, bilateral upper limbs (principal)
CPT/HCPCS: 99204

== ENCOUNTER → 2023-11-19 14:18 | Outpatient (BNVA) | payer MEDICAID, SELFPAY | PROVIDERS: PCP Family Medicine; Visit Provider Orthopaedic Surgery | DX: G56.03 Carpal tunnel syndrome, bilateral upper limbs (principal) | CPT/HCPCS: 99202 ==

== ENCOUNTER 2023-11-30 09:58 | Outpatient (REF) | payer MEDICAID, SELFPAY ==
--- NOTE | ~2023-11-30 | US_ITS ---
EXAMINATION: US RETROPERITONEAL COMPLETE (RENAL) CLINICAL INFORMATION: Stress incontinence. COMPARISON: Ultrasound abdomen 11/24/2020 and 08/05/2018. TECHNIQUE: Real-time imaging of the kidneys and bladder. FINDINGS: RIGHT KIDNEY: 10.5 x 5.3 x 6.7 cm (SAG x AP x TRV). The kidney is normal in size, contour, and echogenicity. Renal cortical thickness is normal. No calculi or focal parenchymal lesions. No hydronephrosis. LEFT KIDNEY: 10.1 x 5.4 x 6.3 cm (SAG x AP x TRV). The kidney is normal in size, contour, and echogenicity. Renal cortical thickness is normal. No calculi or focal parenchymal lesions. No hydronephrosis. BLADDER: Well distended and normal. Bilateral ureteral jets are demonstrated. Prevoid bladder volume is 210.1 mL. Postvoid bladder volume is 29.3 mL. US/US retroperitoneal comp IMPRESSION: 1. Unremarkable sonographic imaging of the kidneys. Specifically, no renal calculi or hydronephrosis of either kidney. 2. Mildly prominent post void bladder residual of 29 mL.
== END 2023-11-30 09:59 | disposition home or self-care (01) ==
LOC: HO.US 09:58
PROVIDERS: PCP Family Medicine; Visit Provider Nurse Practitioner Family
DX: N39.3 Stress incontinence (female) (male) (principal)
CPT/HCPCS: 76770

== ENCOUNTER 2023-12-11 08:21 | Outpatient (AMB) | payer MEDICAID, SELFPAY ==
--- NOTE | 2023-12-11 08:24 | MHC.OFFVIS ---
Intake Visit Reasons: 3m/US(set) Intake Note: Patient presents for initial visit for urinary incontinence Imaging Completed: 11/30/23 Urology Medications: none Blood Thinner: none PVR: 0ml's Vice Squad Police Officer Required: No Allergies No Known Allergies Allergy (Verified 12/11/23 09:00) Medication List - Last Reconciled 12/11/23 by KALEN Reich oxybutynin chloride ER 10 mg PO DAILY 30 days HPI Comments Details: Adelaida is a very pleasant 43-year-old female patient of . She has a past medical history of lupus. She presents to the office today for follow-up of her stress urinary incontinence. Recent retroperitoneal ultrasound results reviewed with the patient today. Bilateral kidneys with no calculi, lesions, and or hydronephrosis. The bladder is well distended and normal. Bilateral ureteral jets are demonstrated. Pre void bladder volume is approximately 210 mL. Postvoid bladder volume is approximately 30 mL. Stress urinary incontinence has been present for quite some time however patient feels symptoms are worsening. She reports having had foor children. Two vaginally and two via . She reports biggest baby was approximately 8 lb. She reports episodes of incontinence with coughing, sneezing, laughing, and increased physical activity. She otherwise denies urinary urgency, urinary frequency, nocturia, hematuria, dysuria, foul smelling urine, changes to urinary stream, flank pain, fever, and or chills. Discussed at length potential causes for stress incontinence as well as further treatment options. Discussed pelvic floor therapy, pharmacological interventions, urodynamics, and in office cystoscopy for further assessment evaluation. In office urinalysis results reviewed with the patient today. PVR 0 mL. She otherwise offers no other issues or concerns at this time. [facility] Medical History Lupus Surgical History History of abdominoplasty History of breast augmentation (2018) Social History Alcohol intake: current Alcohol intake frequency: holidays/special occasions only Alcohol type: hard liquor Patient Tobacco Use Status: Never used Tobacco Current occupation: right handed Review of Systems Const All systems reviewed & are unremarkable except as noted in HPI and below Physical Exam Const General: cooperative, healthy appearing, comfortable, no acute distress, well developed, alert and awake Orientation/consciousness: patient oriented x3 Limitations: no limitations HEENT Head: Yes normal to inspection, Yes normocephalic and Yes atraumatic Ears: hearing grossly normal bilaterally Eyes General: appearance normal, both eyes and all related structures Neck Neck: Yes normal visual inspection and Yes trachea midline Chest Chest palpation & inspection: normal inspection of the chest Resp Effort & Inspection: normal respiratory effort and able to speak in complete sentences Cardio Rate: regular rate GI Inspection: Yes normal to inspection General: Yes no CVA tenderness Back/Spine/Pelvis Back: no CVA tenderness Skin General skin exam: no rashes or lesions noted Neuro General: patient oriented x3 Extrem General: Yes normal to inspection Psych Appearance: grossly normal and well kempt Mental Status: mental status grossly normal Speech and movement: Normal speech and movement present and Clear speech present Affect: normal affect Attitude: cooperative Thought process: Normal thought process present Thought content: Normal thought content present Insight: Fair insight present (Psych) Judgement: Fair judgement present (Psych) Office Procedures Post Void Residual Post Residual Void Post Void Residual (PVR): 0 [id number] Void Residual by ultrasound Results AMB Urinalysis, Automated UA Leukoctes 70 Kait/uL Last Edit by [employer] on 12/11/23 08:42 UA Nitrite Negative Last Edit by [employer] on 12/11/23 08:42 UA Urobilinogen 0.2 mg/dL Last Edit by [employer] on 12/11/23 08:42 UA Protein 15 mg/dL Last Edit by [employer] on 12/11/23 08:42 UA pH 5.0 Last Edit by [employer] on 12/11/23 08:42 UA Blood 0 Prabhu/uL Last Edit by [employer] on 12/11/23 08:42 UA Specific Rowe 1.030 Last Edit by [employer] on 12/11/23 08:42 UA Ketone Positive Last Edit by [employer] on 12/11/23 08:42 UA Bilirubin 0 mg/dL Last Edit by [employer] on 12/11/23 08:42 UA Glucose 0 mg/dL Last Edit by Roman Santiago on 12/11/23 08:42 Results Reviewed Results Reviewed: Laboratory Last Values Urine pH (Auto) 5.0 12/11/23 08:26 Specific Rowe (Auto) 1.030 12/11/23 08:26 Urine Protein (Auto) 15 mg/dL 12/11/23 08:26 Glucose (UA)(Auto) 0 mg/dL 12/11/23 08:26 Urine Ketones (Auto) Positive 12/11/23 08:26 Urine Blood (Auto) 0 Prabhu/uL 12/11/23 08:26 Urine Nitrite (Auto) Negative 12/11/23 08:26 Urine Bilirubin (Auto) 0 mg/dL 12/11/23 08:26 Urine Urobilinogen (Auto) 0.2 mg/dL 12/11/23 08:26 Leukocyte Esterase (Auto) 70 Kait/uL 12/11/23 08:26 Date of Service: 11/30/23 EXAMINATION: US RETROPERITONEAL COMPLETE (RENAL) FINDINGS: RIOrdering Physician: Tonya Parker Date of Service: 11/30/23 Procedure(s): US retroperitoneal comp Accession Number(s): [id number] cc: Yarely Kruger MD; Tonya Parker~ EXAMINATION: US RETROPERITONEAL COMPLETE (RENAL) CLINICAL INFORMATION: Stress incontinence. COMPARISON: Ultrasound abdomen 11/24/2020 and 08/05/2018. TECHNIQUE: Real-time imaging of the kidneys and bladder. FINDINGS: RIGHT KIDNEY: 10.5 x 5.3 x 6.7 cm (SAG x AP x TRV). The kidney is normal in size, contour, and echogenicity. Renal cortical thickness is normal. No calculi or focal parenchymal lesions. No hydronephrosis. LEFT KIDNEY: 10.1 x 5.4 x 6.3 cm (SAG x AP x TRV). The kidney is normal in size, contour, and echogenicity. Renal cortical thickness is normal. No calculi or focal parenchymal lesions. No hydronephrosis. BLADDER: Well distended and normal. Bilateral ureteral jets are demonstrated. Prevoid bladder volume is 210.1 mL. Postvoid bladder volume is 29.3 mL. IMPRESSION: 1. Unremarkable sonographic imaging of the kidneys. Specifically, no renal calculi or hydronephrosis of either kidney. 2. Mildly prominent post void bladder residual of 29 mL. Assessment & Plan Assessment & Plan (1) Stress incontinence: Code(s): N39.3 - Stress incontinence (female) (male) Category: Medical Plan In office urinalysis results reviewed with the patient today; as noted above. PVR 0 mL. Recent retroperitoneal ultrasound results reviewed with the patient today; as noted above. Discussed at length further treatment options for stress incontinence. Referral to pelvic floor therapy has been submitted. Start oxybutynin as discussed and prescribed. Discussed bladder triggers/irritants. Follow-up in 1-3 months with PVR; or sooner with any issues, concerns, and or questions. Orders: Orders AMB Urinalysis Automated Today Z13.9 - Encounter for screening, unspecified AMB Post Void Residual by ultrasound Today N39.3 - Stress incontinence (female) (male) Medications: New oxybutynin chloride ER 10 mg PO DAILY 30 days 30 tabs 1RF N32.81 - Overactive bladder Patient Instructions: The patient had an opportunity to ask questions regarding the treatment plan. All questions were answered. Physical exam, labs, and imaging were discussed and reviewed in detail. As well as risks, benefits, and discussion of treatment choices. No major barriers to understanding were identified. The patient expressed understanding and agreement with the above treatment plan. The patient was made aware they should contact our office by phone for worsening of their current condition, the appearance of new symptoms, or with any questions or concerns. Compliance is encouraged with any medications and follow up testing that is ordered. It is a privilege to be allowed the opportunity to participate in? your urological care.? Again, if you have any questions or concerns If you have any questions or concerns please do not hesitate to contact me. The office is [phone]. This note is constructed using voice recognition software. While every effort has been made to ensure accuracy electric car operator errors may have been included. Yours sincerely, KALEN Reich Coding Level of Care Code Est Pt Level 4 (42107) Diagnoses Stress incontinence N39.3 CPT Codes Post Residual Void - PVR CPT Code: 50128-Scgg Void Residual by ultrasound ([id number])
== END 2023-12-11 09:00 | disposition home or self-care (01) ==
PROVIDERS: PCP Family Medicine; Visit Provider Nurse Practitioner Family
DX: N39.3 Stress incontinence (female) (male) (principal); Z13.9 Encounter for screening, unspecified
CPT/HCPCS: 99214

== ENCOUNTER → 2023-12-11 08:21 | Outpatient (BNVA) | payer MEDICAID, SELFPAY | PROVIDERS: PCP Family Medicine; Visit Provider Nurse Practitioner Family | DX: N39.3 Stress incontinence (female) (male) (principal) | CPT/HCPCS: 51798; 81003; 99212 ==

== ENCOUNTER 2023-12-18 11:31 | Outpatient (REF) | payer MEDICAID, SELFPAY ==
[2023-12-19 14:02] LABS: Bacterial Vaginosis PCR POSITIVE (Negative); Candida Group PCR NOT DETECTED (Not Detect); Candida glab krusei PCR NOT DETECTED (Not Detect); Trichomonas vaginalis PCR NOT DETECTED (Not Detect)
== END 2023-12-18 11:32 | disposition home or self-care (01) ==
LOC: HO.HHCLNP 11:31
PROVIDERS: Visit Provider Nurse Practitioner Family
DX: R82.90 Unspecified abnormal findings in urine (principal)
CPT/HCPCS: 0352U

== ENCOUNTER 2023-12-20 16:04 | Outpatient (REF) | payer MEDICAID, SELFPAY ==
[2023-12-20 17:01] LABS: Appearance Urine Turbid; Color Urine Yellow; Glucose Urine UA Negative (Negative); Leukocyte Esterase Urine Small (1+) (Negative); Nitrite Urine Positive (Negative); PH 5.5 (5.0-9.0); Specific Gravity - Urine 1.025 (1.005-1.025); UMIC TRIGGER UA YES; Urine Blood Negative (Negative); Urine Ketones Trace mg/dL (Negative); Urine Protein Negative (Neg-Trace)
[2023-12-20 17:05] LABS: Bacteria Urine 4+ (None Seen); Hyaline Casts Urine 0-2 /LPF (0-2); RBC Urine 0-2 /HPF (0-2); Squamous Epithelial Cell Urine 0-2 /HPF (0-2)
== END 2023-12-20 16:05 | disposition home or self-care (01) ==
LOC: HO.HHCLNP 16:04
PROVIDERS: Visit Provider Family Medicine
DX: R30.0 Dysuria (principal); R82.90 Unspecified abnormal findings in urine
CPT/HCPCS: 81001; 87086; 87088; 87186

== ENCOUNTER 2024-01-15 15:41 | Emergency (ER) | payer OTHER, MEDICAID, SELFPAY ==
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
[2024-01-15 16:19] VITALS: BP 119/78; PULSE 78; RESP 18; TEMP 36.1; O2SAT 100; BMI 27.2
[2024-01-15 18:10] VITALS: BP 119/78; PULSE 78; RESP 18; TEMP 36.1; O2SAT 100
== END 2024-01-15 18:37 | disposition home or self-care (01) ==
LOC: HO.ED 18:30
PROVIDERS: Emergency Provider Emergency Medicine; PCP Family Medicine
DX: S13.4XXA Sprain of ligaments of cervical spine, initial encounter (principal); S39.012A Strain of muscle, fascia and tendon of lower back, initial encounter; M54.6 Pain in thoracic spine; V43.52XA Car driver injured in collision with other type car in traffic accident, initial encounter; Y93.9 Activity, unspecified; Y92.410 Unspecified street and highway as the place of occurrence of the external cause; Y99.8 Other external cause status
CPT/HCPCS: 72070; 99282; 99283

== ENCOUNTER 2024-02-25 08:50 | Outpatient (AMB) | payer MEDICAID, SELFPAY ==
--- NOTE | 2024-02-25 08:50 | A.OFFVIS_ITS ---
Intake Visit Reasons: 3M follow up Intake Note: Patient presents for tele visit follow up on: urinary incontinence Urology Medications: patient stopped oxubutynin Blood Thinner: none Digital Product Manager Required: No Allergies No Known Allergies Allergy (Verified 02/25/24 09:06) Medication List - Last Reconciled 02/25/24 by KALEN Reich No Known Home Meds HPI Comments Details: Adelaida is a very pleasant 43-year-old female patient of . She has a past medical history of lupus. She is being followed up on today via video telehealth for stress urinary incontinence. Of note, patient was seen approximately 3 months ago at which time she was started on oxybutynin. However, in discussion with the patient today she reports having stopped medication approximately 2 weeks after starting as she had been experiencing extreme episodes of dry mouth. She reports having tried increasing fluid intake and felt this made her stress urinary incontinence worse therefore stopped taking the medication. Previous workup has included a retroperitoneal ultrasound bilateral kidneys with no calculi, lesions, and or hydronephrosis. The bladder is well distended and normal. Bilateral ureteral jets are demonstrated. Pre void bladder volume is approximately 210 mL. Postvoid bladder volume is approximately 30 mL. Stress urinary incontinence has been present for quite some time however patient feels symptoms are worsening. She reports having had four children. Two vaginally and two via . She reports biggest baby was approximately 8 lb. She reports episodes of incontinence with coughing, sneezing, laughing, and increased physical activity. She otherwise denies urinary urgency, urinary frequency, nocturia, hematuria, dysuria, foul smelling urine, changes to urinary stream, flank pain, fever, and or chills. Discussed at length potential causes for stress incontinence as well as further treatment options. She discusses not having it received a call from pelvic floor therapy. Phone number provided. Discussed pelvic floor therapy, pharmacological interventions, urodynamics, and in office cystoscopy for further assessment evaluation. She otherwise offers no other issues or concerns at this time. [facility] Medical History Lupus Surgical History History of abdominoplasty History of breast augmentation (2018) Social History Alcohol intake: current Alcohol intake frequency: holidays/special occasions only Alcohol type: hard liquor Patient Tobacco Use Status: Never used Tobacco Current occupation: right handed Review of Systems Const All systems reviewed & are unremarkable except as noted in HPI and below Physical Exam Const General: cooperative, healthy appearing, comfortable, no acute distress, well developed and alert Orientation/consciousness: patient oriented x3 Resp Effort & Inspection: normal respiratory effort and able to speak in complete sentences Neuro General: patient oriented x3 Psych Appearance: grossly normal and well kempt Speech and movement: Clear speech present Affect: normal affect Attitude: cooperative Thought process: Normal thought process present Thought content: Normal thought content present Insight: Fair insight present (Psych) Judgement: Fair judgement present (Psych) Telehealth Telehealth Telehealth Platform: [employer] Location of provider rendering services: practice address Location of patient: address on file Patient Identification confirmed using: Name, : Yes Telehealth method: video Patient verbally consented to treatment: Yes Patient verbally consented to billing insurance company: Yes Patient informed of any privacy concerns related to visit: Yes Minutes spent on Phone/Video with Pt.: 20 Assessment & Plan Assessment & Plan (1) Stress incontinence: Code(s): N39.3 - Stress incontinence (female) (male) Category: Medical Plan Stop oxybutynin Start Myrbetriq as discussed and prescribed Discussed at length further treatment options for stress incontinence. Discussed possible near future in office cystoscopy and or urodynamics for further assessment evaluation Referral to pelvic floor therapy has been submitted; information provided Discussed bladder triggers/irritants. Follow-up in 1-3 months with PVR; or sooner with any issues, concerns, and or questions. Medications: New mirabegron ER (Myrbetriq) 25 mg PO DAILY 30 tabs 1RF 30 days N30.10 - Interstitial cystitis (chronic) without hematuria, N32.81 - Overactive bladder, R35.1 - Nocturia, R39.15 - Urgency of urination Patient Instructions: The patient had an opportunity to ask questions regarding the treatment plan. All questions were answered. Physical exam, labs, and imaging were discussed and reviewed in detail. As well as risks, benefits, and discussion of treatment choices. No major barriers to understanding were identified. The patient expressed understanding and agreement with the above treatment plan. The patient was made aware they should contact our office by phone for worsening of their current condition, the appearance of new symptoms, or with any questi ons or concerns. Compliance is encouraged with any medications and follow up testing that is ordered. It is a privilege to be allowed the opportunity to participate in? your urological care.? Again, if you have any questions or concerns If you have any questions or concerns please do not hesitate to contact me. The office is [phone]. This note is constructed using voice recognition software. While every effort has been made to ensure accuracy white hat hacker errors may have been included. Yours sincerely, KALEN Reich Coding Level of Care Code Tele Est Pt Level 4 (83470) Diagnoses Stress incontinence N39.3
== END 2024-02-25 09:17 | disposition home or self-care (01) ==
LOC: HO.HUSH 08:50
PROVIDERS: PCP Family Medicine; Visit Provider Nurse Practitioner Family
DX: N39.3 Stress incontinence (female) (male) (principal)
CPT/HCPCS: 99214

== ENCOUNTER → 2024-02-25 08:50 | Outpatient (BNVA) | payer OTHER, MEDICAID, SELFPAY | PROVIDERS: PCP Family Medicine; Visit Provider Nurse Practitioner Family ==

== ENCOUNTER → 2024-03-25 08:52 | Outpatient (BNVA) | payer MEDICAID, SELFPAY | PROVIDERS: PCP Family Medicine; Visit Provider Orthopaedic Surgery ==

== ENCOUNTER 2024-05-27 15:56 | Outpatient (AMB) | payer MEDICAID, SELFPAY ==
--- NOTE | 2024-05-27 16:02 | A.OFFVIS_ITS ---
Intake Visit Reasons: 3m follow up Intake Note: Patient presents today for follow up on: urinary incontinence Urology Medications: myrbetriq Blood Thinner: none PVR: 0ml's Song Lyricist Required: No Accompanied by: Self / Same As Patient Allergies No Known Allergies Allergy (Verified 05/27/24 19:11) Medication List - Last Reconciled 05/27/24 by KALEN Reich mirabegron ER (Myrbetriq) 25 mg PO DAILY 30 days HPI Comments Details: Adelaida is a very pleasant 44-year-old female patient of . She has a past medical history of lupus. She presents to the office today for follow-up of her ongoing urge/stress incontinence. In discussion with the patient today she reports having started pelvic floor therapy and feels this has been somewhat helpful. She reports noting Myrbetriq was helpful in lower urinary tract symptoms she had been experiencing however has since stopped the medication as she has started therapy and would like to further assess improvement in therapy without medications. Previous workup has included a retroperitoneal ultrasound bilateral kidneys with no calculi, lesions, and or hydronephrosis. The bladder is well distended and normal. Bilateral ureteral jets are demonstrated. Pre void bladder volume is approximately 210 mL. Postvoid bladder volume is approximately 30 mL. Stress urinary incontinence has been present for quite some time however patient feels symptoms are worsening. She reports having had four children. Two vaginally and two via . She reports biggest baby was approximately 8 lb. She reports episodes of incontinence with coughing, sneezing, laughing, and increased physical activity. She otherwise denies urinary urgency, urinary frequency, nocturia, hematuria, dysuria, foul smelling urine, changes to urinary stream, flank pain, fever, and or chills. Discussed at length potential causes for stress incontinence. In office urinalysis results reviewed with the patient today. She otherwise offers no other issues or concerns at this time. [facility] Medical History Lupus Surgical History History of abdominoplasty History of breast augmentation (2018) Social History Alcohol intake: current Alcohol intake frequency: holidays/special occasions only Alcohol type: hard liquor Patient Tobacco Use Status: Never used Tobacco Current occupation: right handed Review of Systems Const All systems reviewed & are unremarkable except as noted in HPI and below Physical Exam Const General: cooperative, healthy appearing, comfortable, no acute distress, well developed and alert Orientation/consciousness: patient oriented x3 Limitations: no limitations HEENT Head: Yes normal to inspection, Yes normocephalic and Yes atraumatic Ears: hearing grossly normal bilaterally Eyes General: appearance normal, both eyes and all related structures Neck Neck: Yes normal visual inspection and Yes trachea midline Chest Chest palpation & inspection: normal inspection of the chest Resp Effort & Inspection: normal respiratory effort and able to speak in complete sentences Cardio Rate: regular rate GI Inspection: Yes normal to inspection General: Yes no CVA tenderness Back/Spine/Pelvis Back: no CVA tenderness Skin General skin exam: no rashes or lesions noted Neuro General: patient oriented x3 Extrem General: Yes normal to inspection Psych Appearance: grossly normal and well kempt Mental Status: mental status grossly normal Speech and movement: Clear speech present Affect: normal affect Attitude: cooperative Thought process: Normal thought process present Thought content: Normal thought content present Insight: Fair insight present (Psych) Judgement: Fair judgement present (Psych) Office Procedures Post Void Residual Post Residual Void Post Void Residual (PVR): 0 31114-Rhac Void Residual by ultrasound Results AMB Urinalysis, Automated UA Leukoctes 70 Kait/uL Last Edit by Roman Santiago on 05/27/24 16:17 UA Nitrite Last Edit by Roman Santiago on 05/27/24 16:17 UA Urobilinogen 0.2 mg/dL Last Edit by Roman Santiago on 05/27/24 16:17 UA Protein 15 mg/dL Last Edit by Roman Santiago on 05/27/24 16:17 UA pH 6.0 Last Edit by Roman Santiago on 05/27/24 16:17 UA Blood 0 Prabhu/uL Last Edit by Roman Santiago on 05/27/24 16:17 UA Specific [place] 1.030 Last Edit by Roman Santiago on 05/27/24 16:17 UA Ketone Last Edit by Roman Santiago on 05/27/24 16:17 UA Bilirubin 0 mg/dL Last Edit by Roman Santiago on 05/27/24 16:17 UA Glucose 0 mg/dL Last Edit by Roman Santiago on 05/27/24 16:17 Results Reviewed Results Reviewed: Laboratory Last Values Urine pH (Auto) 6.0 05/27/24 16:06 Specific [place] (Auto) 1.030 05/27/24 16:06 Urine Protein (Auto) 15 mg/dL 05/27/24 16:06 Glucose (UA)(Auto) 0 mg/dL 05/27/24 16:06 Urine Blood (Auto) 0 Prabhu/uL 05/27/24 16:06 Urine Bilirubin (Auto) 0 mg/dL 05/27/24 16:06 Urine Urobilinogen (Auto) 0.2 mg/dL 05/27/24 16:06 Leukocyte Esterase (Auto) 70 Kait/uL 05/27/24 16:06 Assessment & Plan Assessment & Plan (1) Stress incontinence: Code(s): N39.3 - Stress incontinence (female) (male) Category: Medical Plan: In office urinalysis results reviewed with the patient today; as noted above. PVR 0 mL. Continue pelvic floor therapy as planned. Will hold Myrbetriq at this time; however patient did report improvement in urinary symptoms. Discussed bladder triggers/irritants. Follow-up in 3 months; or sooner with any issues, concerns, and or questions. Orders: Orders AMB Urinalysis Automated Today Z13.9 - Encounter for screening, unspecified AMB Post Void Residual by ultrasound Today N39.3 - Stress incontinence (female) (male) Coding Level of Care Code Est Pt Level 3 (84160) Diagnoses Stress incontinence N39.3 CPT Codes Post Residual Void - PVR CPT Code: 35509-Hrnu Void Residual by ultrasound ([id number])
== END 2024-05-27 16:23 | disposition home or self-care (01) ==
LOC: HO.HUSH 15:56
PROVIDERS: PCP Family Medicine; Visit Provider Nurse Practitioner Family
DX: N39.3 Stress incontinence (female) (male) (principal); Z13.9 Encounter for screening, unspecified
CPT/HCPCS: 99213

== ENCOUNTER → 2024-05-27 15:56 | Outpatient (BNVA) | payer MEDICAID, SELFPAY | PROVIDERS: PCP Family Medicine; Visit Provider Nurse Practitioner Family | DX: N39.3 Stress incontinence (female) (male) (principal) | CPT/HCPCS: 51798; 81003; 99212 ==

== ENCOUNTER 2024-05-29 12:24 | Day surgery (SDC) | payer MEDICAID, SELFPAY ==
--- NOTE | 2024-05-29 10:34 | MHC.SHP ---
Pre-Procedural Eval Section A - 24 Hr Update-Section A only Date of Service: 05/29/24 The patient is an INPATIENT: No Changes since office visit: No Cold of Flu in the past 2 weeks, No New Medical Problems, No Changes in Medication and No Patient answered all questions The patient has been examined within 24 hours of the surgical procedure. The History & Physical has been completed within 30 days and I have reviewed it.: Yes Section B - Complete if H&P > 30 days Chief Complaint: Carpal tunnel syndrome, right upper limb Allergies: Allergies Allergy/AdvReac Type Severity Reaction Status Date / Time No Known Allergies Allergy Verified 05/27/24 19:11 Plan Diagnosis/Plan: Unchanged I have reviewed the history and physical and performed a pertinent physical examination on my patient. No changes have occurred unless specified. Time Spent With Patient Time: Total time managing care of this patient today ____ minutes.
--- NOTE | 2024-05-29 13:36 | W.PM.OPN ---
Operative Note Operative Note Date of Service: 05/29/24 Narrative: Preop diagnosis: 1. Right Carpal tunnel syndrome Postop diagnosis: same Procedure: 1. Right Carpal tunnel release Surgeon: Zeny Reddy MD Fishing Line Winding Machine Operator: Rashawn DRUMMOND Anesthesia: local block using 1% lidocaine with epinephrine Findings: Thickened transverse carpal ligament. EBL: Less than 5 mL Specimens: None Complications: None Disposition: Brought to recovery room in stable condition Plan: Follow-up for 10-14 days for wound check and suture removal Indications: The patient is 44 years old, with right carpal tunnel syndrome that has been unresponsive to nonoperative management. The risks and benefits of operative treatment including but not limited to risk of damage to blood vessels, nerves, tendons, infection, persistent pain, persistent symptoms, or possible need for additional surgery were discussed with the patient and the patient wishes to proceed with surgery. Procedure: Once consent was obtained a local block was performed using a combination of 1% lidocaine with epinephrine. The patient was then brought back to the operating suite and placed on the operative table in supine position. The right upper extremity was prepped and draped in a standard surgical fashion. Once assured that we had a good block, a 2.0 cm longitudinal incision was made centered over the carpal tunnel. The incision was made through the skin to the subcutaneous tissues using a #15 blade. Dissection was made down to the level of the transverse carpal ligament with care being taken to protect the palmar cutaneous nerve. Once the transverse carpal ligament was clearly visualized, a longitudinal incision was made in the transverse carpal ligament 1st using a #15 blade, then using tenotomy scissors under direct visualization. Care was taken to look for and protect the motor branch of the median nerve when seen in this area. Once satisfied with our carpal tunnel release the wound was copiously irrigated with normal saline and hemostasis was obtained with a brief period of local pressure. The skin edges were reapproximated with some 5.0 nylon suture material and a sterile dressing was applied. The patient appears to have tolerated the procedure well and with no complications. All digits were well vascularized at the conclusion of the case.
[2024-05-29 14:56] VITALS: BP 123/86; PULSE 86; RESP 20; O2SAT 99
== END 2024-05-29 14:58 | disposition home or self-care (01) ==
PROVIDERS: PCP Family Medicine; Visit Provider Orthopaedic Surgery
PROC: (CPT 64721; principal; 2024-05-29 13:40)
DX: G56.01 Carpal tunnel syndrome, right upper limb (principal); R20.0 Anesthesia of skin; R20.2 Paresthesia of skin; M32.9 Systemic lupus erythematosus, unspecified; Z98.82 Breast implant status; Z98.890 Other specified postprocedural states
CPT/HCPCS: 64721; J0171; J2003

== ENCOUNTER → 2024-05-29 12:24 | Outpatient (BNV) | payer MEDICAID, SELFPAY | PROVIDERS: PCP Family Medicine; Visit Provider Orthopaedic Surgery | DX: G56.01 Carpal tunnel syndrome, right upper limb (principal) | CPT/HCPCS: 64721 ==

== ENCOUNTER 2024-06-10 14:46 | Outpatient (AMB) | payer MEDICAID, SELFPAY ==
[2024-06-10 14:50] VITALS: BMI 27.1
--- NOTE | 2024-06-10 14:50 | A.OFFVIS_ITS ---
Vital Signs 06/10/24 14:50 Height 4 ft 11 in Weight 134 lb BMI 27.1 Intake Visit Reasons: PO-RT CTR 05/29/24 AR Intake Note: Adelaida is a 44 yo right hand dominant female who presents today post-operatively s/p right carpal tunnel release performed 05/29/[address] Reddy. Patient reports her numbness and tingling has resolved. Stitches removed in office and steri strips applied. Allergies No Known Allergies Allergy (Verified 06/10/24 14:51) HPI HPI PO-RT CTR 05/29/24 AR: Details: Adelaiad is a 44 year old right hand dominant woman who returns S/P right carpal tunnel release, DOS: 05/29/24. She says she is doing well and her sensation is now normal on her right side. She has left carpal tunnel syndrome and says she has numbness intermitten, but daily in the median nerve distribution. ON LICENSE OF [facility] Medical History Lupus Surgical History History of abdominoplasty History of breast augmentation (2018) Social History Alcohol intake: current Alcohol intake frequency: holidays/special occasions only Alcohol type: hard liquor Patient Tobacco Use Status: Never used Tobacco Current occupation: right handed Review of Systems Const All systems reviewed & are unremarkable except as noted in HPI and below Physical Exam Vital Signs: BMI result Body Mass Index 27.1 Const General: no acute distress and alert Orientation/consciousness: patient oriented x3 Neuro General: patient oriented x3 Extrem Other: The patient was alert oriented and in no acute distress The incision is healing well with no erythema drainage or evidence of infection. Sutures removed and Steri-Strips applied She can make a fist and extend all her digits Sensation is intact to the right median nerve distribution In regards to the left hand: normal sensation today in clinic Cap refill is brisk Nerve Conduction Study: IMPRESSION: Moderately severe bilateral median neuropathy across carpal tunnel. Eb Haq MD 09/13/2023 Psych Appearance: grossly normal Affect: normal affect Attitude: cooperative Assessment & Plan Assessment & Plan (1) Bilateral carpal tunnel syndrome: Code(s): G56.03 - Carpal tunnel syndrome, bilateral upper limbs Category: Medical Plan Assessment & Plan: 1. Right carpal tunnel syndrome, S/P release DOS: 05/29/24 Pre-operative symptoms intermittent, but daily, worse at night Now with normal sensation The patient appears to be doing well post-operatively I educated her about the post-operative course I explained the signs and symptoms of infection I explained that it may take up to 9 months post-operatively for any sensation to return. I discussed activity modifications, she is to lift nothing heavier than a cellphone for the next two weeks She will perform gentle ROM exercises at home She should avoid any underwater activities for the next 5 days She should gently massage about the incision site to reduce the risk of hypersensitivity She can follow up prn 2. Left carpal tunnel syndrome, moderate-severe Symptoms intermittent, but daily, worse at night I educated her about this condition I discussed operative and non-operative treatment options The patient would like to proceed with surgery The risks and benefits of operative treatment were discussed with the patient and the patient wishes to proceed with surgery. These risks include, but are not limited to risk of damage to blood vessels, nerves, tendons, infection, recurrence, incomplete relief of preoperative symptoms, persistent pain, possible need for further surgery and the risks associated with regional blocks and anesthesia. The plan is to take the patient to the operating room sometime in the next few weeks for the following procedures: 1. Left carpal tunnel release, under local All of the preoperative paperwork including the consent was reviewed today. All the patient's questions were answered. The patient understands that they will be contacted by our mess attendant crew soon to schedule this procedure She denies Diabetes, blood thinners, asthma, heart, lung, kidney issues Scribed for Zeny Reddy MD by Hermann Umaña, biomedical engineering supervisor, on 06/10/24 at 3:30 PM, EST. Coding Level of Care Code Est Pt Level 4 (58839) Diagnoses Bilateral carpal tunnel syndrome G56.03
== END 2024-06-10 15:50 | disposition home or self-care (01) ==
PROVIDERS: PCP Family Medicine; Visit Provider Orthopaedic Surgery
DX: G56.03 Carpal tunnel syndrome, bilateral upper limbs (principal)
CPT/HCPCS: 99214

== ENCOUNTER → 2024-06-10 14:46 | Outpatient (BNVA) | payer MEDICAID, SELFPAY | PROVIDERS: PCP Family Medicine; Visit Provider Orthopaedic Surgery | DX: Z47.89 Encounter for other orthopedic aftercare (principal); G56.02 Carpal tunnel syndrome, left upper limb; Z98.890 Other specified postprocedural states | CPT/HCPCS: 99212 ==

== ENCOUNTER 2024-07-17 15:01 | Outpatient (RCR) | payer MEDICAID, SELFPAY ==
--- NOTE | 2024-04-09 16:24 | MHC.PT.EP ---
[facility] [place] Office [place] Office [place] Office [address] Mari Greco [address] [phone] F: [phone] F: [phone] F: [phone] F: [phone] Physical Therapy Plan of Care Date of Evaluation: 04/09/24 Date of Surgery: NA Diagnosis: Stress urinary incontinence Assessment: Adelaida is a 43 year old female who is referred to PT for stress incontinence . She reports of having UI for about 1 year. She reports of having incontinence with coughing, sneezing, laughing, and urge incontinence. She denies having any bowel issues, or difficulty with sexual activities. On PT examination she presented with absent involuntary contraction of PFM, TTP along pelvic floor muscles- R>L, decreased B LE and PFM strength, and mild cystocele. She lives with her family and is independent with all ADLS. 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 She would benefit from skilled PT to address the aforementioned impairments and improve tolerance to functional activities. Frequency and Duration: The patient will be seen 1/week for 8 weeks Short Term Goals: 1. Pt will be able to state at least 3 urge suppression techniques in 2 weeks. 2. Pt will deny having any symptoms of urgency and UUI in 3 weeks. 3. Pt will be having at least 3 BM/week in 4 weeks. Escrow Manager Goals: 1. Pt will have 50% decrease in symptoms of ELLIE in 6 weeks 2. Pt will be independent with [facility] for symptom management and maintenance following d/c in 8 weeks. Treatment Plan: Modalities to reduce pain, spasms and effusion. Manual therapy to restore motion and function. Therapeutic exercise to improve strength and flexibility. Neuromuscular re-education for posture and balance. Therapeutic activities to return to functional activities of daily living. Electronically signed by: Please sign and return to therapist. Thank you for your referral.
--- NOTE | 2024-08-05 14:14 | MHC.PT.DC ---
[facility] [place] Office [place] Office [place] Office [address] Mari Greco [address] [phone] F: [phone] F: [phone] F: [phone] F: [phone] Physical Therapy Discharge Report Diagnosis: Stress urinary incontinence Date of Surgery: NA Date of Evaluation: 04/09/24 Date of Discharge: 08/05/24 Treatments to Date: 11 Cancellations to Date: 0 No Shows to Date: 0 Discharge Status: Achieved Goals Improved Function Independent with HEP Discharge Summary: Adelaida arrived with no new complaints. She has completed 11 PT visits and has achieved all goals set for her. She has had no symptoms of urgency and frequency and no UUI and ELLIE in over 4 weeks. She is also aware of ways to manage her symptoms. She is therefore being d/c from PT. Adelaida was in agreement with the plan. I reviewed all exercises with her. Electronically signed by: Anne Taylor, PT DPT Please sign and return to therapist. Thank you for your referral.
== END 2024-08-05 14:15 | disposition home or self-care (01) ==
LOC: HO.PT 15:01
PROVIDERS: PCP Family Medicine; Visit Provider Nurse Practitioner Family
DX: N39.3 Stress incontinence (female) (male) (principal)
CPT/HCPCS: 97110; 97112; 97140; 97161; 97530

== ENCOUNTER 2024-08-25 16:15 | Outpatient (AMB) | payer MEDICAID, SELFPAY ==
--- NOTE | 2024-08-25 16:15 | A.OFFVIS_ITS ---
Intake Visit Reasons: 3M follow up Intake Note: Patient presents today for tele visit follow up on: urinary incontinence Urology Medications: none Blood Thinner: none Manager Document Control Required: No Accompanied by: Self / Same As Patient Allergies No Known Allergies Allergy (Verified 08/25/24 16:51) Medication List - Last Reconciled 08/25/24 by KALEN Reich No Known Home Meds HPI Comments Details: Adelaida is a very pleasant 44-year-old female patient of . She has a past medical history of lupus. She is being followed up on today via telehealth for her ongoing urge/stress incontinence. In discussion with the patient today she reports having completed pelvic floor therapy here at [facility] and discusses how beneficial this has been for her. She discusses continuing to perform pelvic floor exercises at home and continues to avoid bladder triggers/irritants. She currently denies any bothersome urinary issues or concerns. Previous workup has included a retroperitoneal ultrasound 12/13 noting bilateral kidneys with no calculi, lesions, and or hydronephrosis. The bladder is well distended and normal. Bilateral ureteral jets are demonstrated. Pre void bladder volume is approximately 210 mL. Postvoid bladder volume is approximately 30 mL. She does have a history of having had 4 children to vaginally in 2 via . She otherwise denies urinary urgency, urinary frequency, nocturia, hematuria, dysuria, foul smelling urine, changes to urinary stream, flank pain, fever, and or chills. Discussed at length potential causes for stress incontinence. She otherwise offers no other issues or concerns at this time. [facility] Medical History Lupus Surgical History History of abdominoplasty History of breast augmentation (2018) Social History Alcohol intake: current Alcohol intake frequency: holidays/special occasions only Alcohol type: hard liquor Patient Tobacco Use Status: Never used Tobacco Current occupation: right handed Review of Systems Const All systems reviewed & are unremarkable except as noted in HPI and below Physical Exam Const General: cooperative Orientation/consciousness: patient oriented x3 Resp Effort & Inspection: able to speak in complete sentences Neuro General: patient oriented x3 Psych Thought process: Normal thought process present Thought content: Normal thought content present Insight: Fair insight present (Psych) Judgement: Fair judgement present (Psych) Telehealth Telehealth Telehealth Platform: [employer] Location of provider rendering services: practice address Location of patient: address on file Patient Identification confirmed using: Name, : Yes Telehealth method: voice only Patient verbally consented to treatment: Yes Patient verbally consented to billing insurance company: Yes Patient informed of any privacy concerns related to visit: Yes Minutes spent on Phone/Video with Pt.: 15 Assessment & Plan Assessment & Plan (1) Stress incontinence: Code(s): N39.3 - Stress incontinence (female) (male) Category: Medical Plan Patient has since completed pelvic floor therapy Continue pelvic floor exercises at home as discussed. She currently denies any bothersome urinary issues or concerns. She reports be happy with current voiding parameters. Continue avoiding bladder irritants. Follow-up in 6 months with PVR; or sooner with any issues, concerns, and or questions. Patient Instructions: The patient had an opportunity to ask questions regarding the treatment plan. All questions were answered. Physical exam, labs, and imaging were discussed and reviewed in detail. As well as risks, benefits, and discussion of treatment choices. No major barriers to understanding were identified. The patient expressed understanding and agreement with the above treatment plan. The patient was made aware they should contact our office by phone for worsening of their current condition, the appearance of new symptoms, or with any questions or concerns. Compliance is encouraged with any medications and follow up testing that is ordered. It is a privilege to be allowed the opportunity to participate in? your urological care.? Again, if you have any questions or concerns If you have any questions or concerns please do not hesitate to contact me. The office is [phone]. This note is constructed using voice recognition software. While every effort has been made to ensure accuracy ocean clam boat captain errors may have been included. Yours sincerely, Tonya Parker, KNOT PICKER CLOTH-BC Coding Level of Care Code Tele Est Pt Level 3 (16317) Diagnoses Stress incontinence N39.3
--- OUTSIDE RECORDS SUMMARY | 2024-08-25 17:19 | XMS_ITS | Encounter Summary ---
Author Organization [employer] Address [address] [place] [address] Care Team Providers Care Working Supervisor Name Role Phone Yarely Kruger MD Primary Care Provider [phone] Zney Reddy MD Unavailable [phone] Encounter Details Date Type Department Care Team (Latest Contact Info) Description 08/09/2024 Travel Social History Tobacco Use Types Packs/Day Years Used Date Smoking Tobacco: Never Smokeless Tobacco: Never Depression Answer Date Recorded Patient Health Questionnaire-9 Score 0 03/05/2023 Housing Stability Answer Date Recorded What is your housing situation today? I have gregyovani cifuentes 05/09/[address] you li ve. Do you have problems with any of the following? None of the above 05/09/2023 Food Insecurity Answer Date Recorded Within the past 12 months, y ou worried that your food would run out before you got money to buy more: Never True 05/09/2023 Within the past 12 months,th e food you bought just didn't last and you didn't have enough money to get more: Never True Transportation Answer Date Recorded In the past 12 months, has l ack of transportation kept you from medical appts, meetings, work or from getting things needed for daily living? No 05/09/2023 Utilities Answer Date Recorded In the past 12 months, has t he electric, gas, oil or water company threatened to shut off services in your home? Yes 04/29/2023 Depression Answer Date Recorded Patient Health Questionnaire-2 Score 0 03/05/2023 Comments Unknown Sex and Gender Information Value Date Recorded Sex Assigned at Female 05/22/2022 10:15 AM EDT Legal Sex Female 10:15 AM EDT Gender Identity Female 05/22/2022 10:15 AM EDT Sexual Orientation Choose not to disclose 2021 10:15 AM EDT documented as of this encounter Plan of Treatment Not on file documented as of this encounter Visit Diagnoses Not on filedocumented in this encounter Additional Health Concerns Assessment Noted Time PHQ-9 Depression Total Score: 0 03/05/20 23 9:12 AM EDT documented as of this encounter Care Teams Working Supervisor Relationship Specialty Start Date End Date Yarely Kruger MD [address] [place] [id number] PCP - General Family Medicine 07/23/18 Zeny Reddy MD [address] [place] [address] [place] [id number] Orthopaedic Surgery 06/11/24 documented as of this encounter
--- OUTSIDE RECORDS SUMMARY | 2024-08-25 17:19 | XMS_ITS | Encounter Summary ---
Author Organization [employer] Address [address] [place] [address] 7t [place] [address] Care Team Providers Care Biodiesel Plant Operations Engineer Name Role Phone Yarely Kruger MD Primary Care Provider [phone]- [phone] Zeny Reddy MD Unavailable [phone] Reason for Visit * Reason Comments Pre-op Exam pre-op for eye surge ry 09/05/24 Encounter Details Date Type Department Care Team (Late st Contact Info) Description 08/20/2024 1:30 PM EST Office Visit [facility] MEDICINE [address] [place], [place] [phone] Yarely Kruger MD [address] [place], [place] [phone] Preop examination (Primary Dx); Dietary counseling; Exercise counseling; Systemic lupus erythematosus, unspecified SLE type, unspecified organ involvement status (CMS/HCC); Other specified health status Social History Tobacco Use Types Packs/Day Years Used Date Smoking Tobacco: Never Passive Smoke Exposure: Never Smokeless Tobacco: Never Tobacco Cessation:Counseling Given: Not Answered Depression Answer Date Recorded Patient Health Questionnaire-9 Score 0 08/20/2024 Patient Health Questionnaire-9 Score 0 08/20/2024 Last PHQ-9: Questionnaire Data Not on file 0 08/20/2024 Housing Stability Answer Date Recorded What is your housing situation today? I have greg cifuentes 08/20/[address] you li ve. Do you have problems with any of the following? None of the above 08/20/2024 Food Insecurity Answer Date Recorded Within the past 12 months, y ou worried that your food would run out before you got money to buy more: Never True 08/20/2024 Within the past 12 months,th e food you bought just didn't last and you didn't have enough money to get more: Never True Transportation Answer Date Recorded In the past 12 months, has l ack of transportation kept you from medical appts, meetings, work or from getting things needed for daily living? No 08/20/2024 Utilities Answer Date Recorded In the past 12 months, has t he electric, gas, oil or water company threatened to shut off services in your home? No 08/20/2024 Depression Answer Date Recorded Patient Health Questionnaire-2 Score 0 08/20/2024 Internet Access Answer Date Recorded Internet Access Q1 Yes 08/20/2024 Internet Access Q2 Not on file 08/20/2024 Comments Unknown Sex and Gender Information Value Date Recorded Sex Assigned at Female 05/22/2022 10:15 AM EDT Legal Sex Female 10:15 AM EDT Gender Identity Female 05/22/2022 10:15 AM EDT Sexual Orientation Choose not to disclose 2021 10:15 AM EDT documented as of this encounter Last Filed Vital Signs Vital Sign Reading Time Taken Comments Blood Pressure 129/86 08/20/2024 1:35 PM EST Pulse 70 08/20/2024 1:35 PM EST Temperature 36.1 ??C (96.9 ??F) 08/20/2024 1:35 PM ES T Respiratory Rate 20 08/20/2024 1:35 PM EST Oxygen Saturation 97% 08/20/2024 1:35 PM EST Inhaled Oxygen Concentration - - Weight 67.9 kg (149 lb 12.8 oz) 08/20/2024 1:35 PM EST Height 149.9 cm (4' 11 ) 08/20/2024 1:35 PM EST Body Mass Index 30.26 08/20/2024 1:35 PM EST documented in this encounter Progress Notes * Yarely Kruger MD - 08/20/2024 1:30 PM EST Adelaida Husain is a 44 y.o. female with past medical history of lupus on immunosuppression and carpel tunnel syndrome who presents to the office for a preoperative evaluation. Primary Care Provider: Yarely Kruger Procedure:Pars Plana Vitrectomy/EL OS Surgeon: Dr. Anselmo Mcadams MD Date of Procedure: on 09/05/24 at [facility] Type of Anesthesia: local Procedure risk: low Denies personal or family history of bleeding diathesis or life-threatening anesthetic reactions Denies kidney disease, thyroid disease, liver disease, asthma, or diabetes. Denies history of stroke. Denies problems with pain, stiffness, or arthritis in neck or jaw. Denies history of sleep apnea, loud snoring, or waking from sleep choking or gasping. Denies allergy to tape, iodine, or latex Able to walk up a flight of stairs or run across a street without needing to stop to catch breath. No known cardiac history, denies history of irregular heartbeat, unstable angina, ME within 1 month, severe congestive heart failure, high grade arrhythmia, or symptomatic valvular disease. Denies hx RODERICK, asthma. No history of alcohol withdrawal; not a regular, heavy drinker. Denies steroid exposure. Denies anticoagulation. Denies antiplatelet therapy. Chronic Medical Conditions: Patient Active Problem List Diagnosis Retinal vasculitis Solitary cyst of breast Systemic lupus erythematosus ([facility]/HCC) Other specified health status Epiretinal membrane Pseudophakia of both eyes Presbyopia of both eyes Urinary incontinence BMI 26.0-26.9,adult Preop examination Allergies: No Known Allergies Current Outpatient Medications on File Prior to Visit Medication Sig Dispense Refill [DISCONTINUED] benzonatate (Tessalon Perles) 100 MG capsule Take 1 capsule (100 mg) by mouth if needed in the morning, at noon, and at bedtime for cough for up to 7 days. Do not crush or chew. 20 capsule 0 [DISCONTINUED] cyclobenzaprine (Flexeril) 5 MG tablet Take 5 mg by mouth if needed in the morning, at noon, and at bedtime. [DISCONTINUED] fluconazole (Diflucan) 150 MG tablet [DISCONTINUED] ketorolac (Toradol) 10 MG tablet TAKE 1 TABLET BY MOUTH THREE TIMES DAILY FOR 5 DAYSAS NEEDED FOR PAIN [DISCONTINUED] lidocaine (Lidoderm) 5 % patch APPLY 1 PATCH TOPICALLY ONCE A DAY FOR UP TO 12 HOURS [DISCONTINUED] metroNIDAZOLE (Metrogel) 0.75 % vaginal gel Insert one applicator into vagina at bedtime for 5 nights 45 g 0 [DISCONTINUED] oxybutynin XL (Ditropan-XL) 10 MG 24 hr tablet Take 10 mg by mouth Once per day. [DISCONTINUED] sulfamethoxazole-trimethoprim (Bactrim DS) 800-160 MG tablet Take 1 tablet by mouth 2 times daily for 3 days. 6 tablet 0 No current facility-administered medications on file prior to visit. Review of Systems Constitutional: Negative for fatigue, fever and unexpected weight change. Respiratory: Negative for cough. Cardiovascular: Negative for chest pain. Gastrointestinal: Negative for abdominal pain. Genitourinary: Negative for difficulty urinating. Social History Denies tobacco, EtOh or recreational drugs OBJECTIVE Visit Vitals BP 129/86 (BP Location: Right arm, Patient Position: Sitting, BP Cuff Size: Adult) Pulse 70 Temp 96.9 ??F (36.1 ??C) (Temporal) Resp 20 Ht 4' 11 (1.499 m) Wt 149 lb 12.8 oz (67.9 kg) SpO2 97% BMI 30.26 kg/m?? Smoking Status Never BSA 1.68 m?? Physical Exam Constitutional: Appearance: Normal appearance. Cardiovascular: Rate and Rhythm: Normal rate and regular rhythm. Heart sounds: Normal heart sounds. Pulmonary: Effort: Pulmonary effort is normal. Breath sounds: Normal breath sounds. Abdominal: Tenderness: There is no abdominal tenderness. Musculoskeletal: Cervical back: Normal range of motion and neck supple. Neurological: General: No focal deficit present. Mental Status: She is alert. Psychiatric: Behavior: Behavior normal. PREOPERATIVE ASSESSMENT AND PLAN: -H&P completed -Medication list reviewed with patient and up to date. -Antibiotic prophylaxis before the procedure: none -The incidence of perioperative cardiovascular events varies according to the patient risk profile,patient's functional capacity, and risk of the proposed surgery is low. -May proceed to the operating room without further cardiac risk stratification. Problem List Items Addressed This Visit Preop examination - Primary This patient is at average risk for a a low risk procedure. The patient is at acceptable risk for the proposed procedure. Reviewed with patient that no surgery is completely free of risk and this evaluation is to assist surgeon in accurately reviewing informed consent. Systemic lupus erythematosus (CMS/HCC) Other specified health status Other Visit Diagnoses Dietary counseling Exercise counseling Treasure Cooper, am serving as a scribe to document services personally performed by Dr. Forrester, based on the patient's response to questions by provider and providers statements to me. documented in this encounter Miscellaneous Notes * Assessment & Plan Note - Yarely Kruger MD - 08/20/2024 2:24 PM EST Associated Problem(s): Preop examination This patient is at average risk for a a low risk procedure. The patient is at acceptable risk for the proposed procedure. Reviewed with patient that no surgery is completely free of risk and this evaluation is to assist surgeon in accurately reviewing informed consent. documented in this encounter Plan of Treatment Not on file documented as of this encounter Visit Diagnoses Diagnosis Preop examination- Primary Unspecified pre-operative examination Dietary counseling Dietary surveillance and counseling Exercise counseling Systemic lupus erythematosus, unspecified SLE type, unspecified organ involvement status (CMS/HCC) Other specified health status documented in this encounter Additional Health Concerns Assessment Noted Time PHQ-9 Depression Total Score: 0 08/20/19 25 1:39 PM EST documented as of this encounter Care Teams Biodiesel Plant Operations Engineer Relationship Specialty Start Date End Date Yarely Kruger MD [address] [place] [address] PCP - General Family Medicine 07/23/18 Zeny Reddy MD [address] [place] [address] Orthopaedic Surgery 06/11/24 Dr. Anselmo Mcadams MD [facility] [address] [facility] [address] Ophthalmology 08/15/24 documented as of this encounter
--- OUTSIDE RECORDS SUMMARY | 2024-08-25 17:19 | XMS_ITS | Encounter Summary ---
Author Organization [employer] Address [address] [place] [address] 7 [place] [address] Care Team Providers Care News Clerk Name Role Phone Yarely Kruger MD Primary Care Provider [phone] Zeny Reddy MD Unavailable [phone] Reason for Visit * Reason Onset Date Comments Referral 09/08/2022 Encounter Details Date Type Department Care Team (Late st Contact Info) Description 09/08/2022 Telephone [facility] MEDICINE [address] [place], [place] [phone] Yarely Kruger MD [address] [place] [address] Referral Social History Tobacco Use Types Packs/Day Years Used Date Smoking Tobacco: Never Assessed Comments Unknown Sex and Gender Information Value Date Recorded Sex Assigned at Female 05/22/2022 10:15 AM EDT Legal Sex Female 10:15 AM EDT Gender Identity Female 05/22/2022 10:15 AM EDT Sexual Orientation Choose not to disclose 2021 10:15 AM EDT documented as of this encounter Miscellaneous Notes * Telephone Encounter - Nevin Serrano MD - 09/13/2022 5:44 PM EST Referral done * Telephone Encounter - Tyrell Omalley - 09/08/2022 3:42 PM EST Tc from pt requesting an referral to be seen at the [facility] Please contact pt at [phone] documented in this encounter Plan of Treatment Not on file documented as of this encounter Visit Diagnoses Not on filedocumented in this encounter Care Teams News Clerk Relationship Specialty Start Date End Date Yarely Kruger MD [address] [place] [address] PCP - General Family Medicine 07/23/18 Zeny Reddy MD [address] [place] [address] [address] [place] [address] Orthopaedic Surgery 06/11/24 Dr. Anselmo Mcadams MD [facility] [address] [facility] [address] Ophthalmology 08/15/24 documented as of this encounter
--- OUTSIDE RECORDS SUMMARY | 2024-08-25 17:19 | XMS_ITS | Encounter Summary ---
Author Organization [employer] Address [address] [facility] 7t [place] [address] Care Team Providers Care Harness Tier Name Role Phone Yarely Kruger MD Primary Care Provider [phone] Zeny Reddy MD Unavailable [phone] Reason for Visit * Reason Onset Date Comments chartprep 08/19/2024 Encounter Details Date Type Department Care Team (Late st Contact Info) Description 08/19/2024 Telephone [facility] MEDICINE [address] [place] [address] Dyan Price MA chartprep Social History Tobacco Use Types Packs/Day Years [...] encounter Miscellaneous Notes * Telephone Encounter - Dyan Price MA - 08/19/2024 1:01 PM EST Chart Prep Labs: done Images: done Vaccines due: Covid Due and Flu Due Referrals: Not Applicable Screenings: Not Applicable Overdue care gaps: Covid 19 due influenza due documented in this encounter Plan of Treatment Not on file documented as of this encounter Visit Diagnoses Not on filedocumented in this encounter Additional Health Concerns Assessment Noted Time PHQ-9 Depression Total Score: 0 03/05/20 23 9:12 AM EDT documented as of this encounter Care Teams Harness Tier Relationship Specialty Start Date End Date Yarely Kruger MD [address] [place] [address] PCP - General Family Medicine 07/23/18 Zeny Reddy MD [address] [place] [address] Orthopaedic Surgery 06/11/24 Dr. Anselmo Mcadams MD [facility] [address] [facility] [address] Ophthalmology 08/15/24 documented as of this encounter
--- OUTSIDE RECORDS SUMMARY | 2024-08-25 17:19 | XMS_ITS | Encounter Summary ---
Author Organization [employer] Address [address] [facility] 7t [place] [address] Care Team Providers Care Rfid Systems Architect Name Role Phone Yarely Kruger MD Primary Care Provider [phone] Zeny Reddy MD Unavailable [phone] Encounter Details Date Type Department Care Team (Late st Contact Info) Description 08/28/2022 Abstract [facility] MEDICINE [address] [place], [place] [phone] Yarely Kruger MD [address] [place], [place] [phone] Social History Tobacco Use Types Packs/Day Years [...] on file documented as of this encounter Procedures Procedure Name Priority Date/Time Associated Diagnosis Comments MAMMOGRAPHY Routine 11/22/2021 PAP SMEAR Routine 04/19/2018 12:00 AM EDT documented in this encounter Results * Mammography (11/22/2021) Mammogram BIRADS 2 Anatomical Region Laterality Modality Other Historical Provider HEALTH MAINTENANCE Final Result * Pap Smear (04/19/2018 12:00 AM EDT) Swab us Historical Provider LAB CYTOLOGY ORDERABLES F inal Result IMAGING documented in this encounter Visit Diagnoses Not on filedocumented in this encounter Care Teams Rfid Systems Architect Relationship Specialty Start Date End Date Yarely Kruger MD [address] [place] [address] PCP - General Family Medicine 07/23/18 Zeny Reddy MD [address] [place] [address] Orthopaedic Surgery 06/11/24 Dr. Anselmo Mcadams MD [facility] [address] [facility] [address] Ophthalmology 08/15/24 documented as of this encounter
--- OUTSIDE RECORDS SUMMARY | 2024-08-25 17:19 | XMS_ITS | Encounter Summary ---
Author Organization [employer] Address [address] [place] [address] 7 [place] [address] Care Team Providers Care Gas Scrubber Operator Name Role Phone Yarely Kruger MD Primary Care Provider [phone]- [phone] Zeny Reddy MD Unavailable [phone] Encounter Details Date Type Department Care Team (Late st Contact Info) Description 03/14/2023 Orders Only [facility] MEDICINE [address] [place], [place] [phone] Yarely Kruger MD [address] [place], [place] [phone] Social History Tobacco Use Types Packs/Day Years Used Date Smoking Tobacco: Never Smokeless Tobacco: Never Depression Answer Date Recorded Patient Health Questionnaire-9 Score 0 03/05/2023 Depression Answer Date Recorded Patient Health Questionnaire-2 [...] documented as of this encounter Care Teams Gas Scrubber Operator Relationship Specialty Start Date End Date Yarely Kruger MD [address] [place], [place] [phone] PCP - General Family Medicine 07/23/18 Zeny Reddy MD [address] [place] [address] Orthopaedic Surgery 06/11/24 Dr. Anselmo Mcadams MD [facility] [address] [facility] [address] Ophthalmology 08/15/24 documented as of this encounter
--- OUTSIDE RECORDS SUMMARY | 2024-08-25 17:19 | XMS_ITS | Encounter Summary ---
Author Organization [email or web address] Address [address] [facility] 7t [place] [address] Care Team Providers Care Drapery Maker Name Role Phone Yarely Kruger MD Primary Care Provider [phone]- [phone] Zeny Reddy MD Unavailable [phone] Encounter Details Date Type Department Care Team (Late st Contact Info) Description 05/09/2023 Abstract [facility] MEDICINE [address] [place], [place] [phone] Yarely Kruger MD [address] [place], [place] [phone] Social History Tobacco Use Types Packs/Day Years [...] documented as of this encounter Care Teams Drapery Maker Relationship Specialty Start Date End Date Yarely Kruger MD [address] [place] [address] PCP - General Family Medicine 07/23/18 Zeny Reddy MD [address] [place] [address] Orthopaedic Surgery 06/11/24 Dr. Anselmo Mcadams MD [facility] [address] [facility] [address] Ophthalmology 08/15/24 documented as of this encounter
--- OUTSIDE RECORDS SUMMARY | 2024-08-25 17:19 | XMS_ITS | Encounter Summary ---
Author Organization [employer] Address [address] [facility] 7t [place] [address] Care Team Providers Care Strip Stamp Straightener Name Role Phone Yarely Kruger MD Primary Care Provider [phone] Zeny Reddy MD Unavailable [phone] Reason for Visit * Reason Onset Date Comments Letter for School/Work 01/30/2024 Encounter Details Date Type Department Care Team ([facility] st Contact Info) Description 01/30/2024 Telephone [facility] MEDICINE [address] [place], [place] [phone] Yarely Kruger MD [address] [place], [place] [phone] Letter for School/Work Social History Tobacco Use Types Packs/Day Years Used Date Smoking Tobacco: Never Smokeless Tobacco: Never Depression Answer Date Recorded Patient Health Questionnaire-9 Score 0 03/05/2023 Housing Stability Answer Date Recorded What is your housing situation today? I have greg cifuentes 05/09/[address] you [...] encounter Miscellaneous Notes * Telephone Encounter - Heena Pratt RN - 01/30/2024 11:40 AM EDT Please review and advise for below request. * Telephone Encounter - Kalee Chaudhari - 01/30/2024 11:33 AM EDT Tc from pt requesting status on excuse letter for work, states they were seen as tele yesterday 01/29/24 and was [facility] Please contact at [phone] documented in this encounter Plan of Treatment Not on file documented as of this encounter Visit Diagnoses Not on filedocumented in this encounter Additional Health Concerns Assessment Noted Time PHQ-9 Depression Total Score: 0 03/05/20 23 9:12 AM EDT documented as of this encounter Care Teams Strip Stamp Straightener Relationship Specialty Start Date End Date Yarely Kruger MD [address] [place] [address] PCP - General Family Medicine 07/23/18 Zeny Reddy MD [address] [place] [address] Orthopaedic Surgery 06/11/24 documented as of this encounter
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
--- OUTSIDE RECORDS SUMMARY | 2024-08-25 17:19 | XMS_ITS | Encounter Summary ---
Author Organization [employer] Address [address] [facility] 7t [place] [address] Care Team Providers Care Digital Analyst Name Role Phone Yarely Kruger MD Primary Care Provider [phone] Zeny Reddy MD Unavailable [phone] Encounter Details Date Type Department Care Team (Latest Contact Info) Description 08/20/2024 Travel Social History Tobacco Use Types Packs/Day Years Used Date Smoking Tobacco: Never Passive Smoke Exposure: Never Smokeless Tobacco: Never Depression Answer Date [...] Time PHQ-9 Depression Total Score: 0 08/20/19 1:39 PM EST documented as of this encounter Care Teams Digital Analyst Relationship Specialty Start Date End Date Yarely Kruger MD [address] [place] [address] PCP - General Family Medicine 07/23/18 Zeny Reddy MD [address] [place] [address] Orthopaedic Surgery 06/11/24 Dr. Anselmo Mcadams MD [facility] [address] [facility] [address] Ophthalmology 08/15/24 documented as of this encounter
--- OUTSIDE RECORDS SUMMARY | 2024-08-25 17:19 | XMS_ITS | Clinical Summary ---
Author Organization [employer] Address [address] [place] [address] [address] [place] [address] Care Team Providers Care Hiv Cts Specialist Name Role Phone Yarely Kruger MD Primary Care Provider [phone] Zeny Reddy MD Unavailable [phone] Allergies No known active allergies Medications cyclobenzaprin e (Flexeril) 5 MG tablet Take 5 mg by mouth if needed in the morning, at noon, and at bedtime. 01/17/20 025 Discontinued(Me d list cleanup (will not trigger notification to Pharmacy)) lidocaine (Lidoderm) 5 % patch APPLY 1 PATCH TOPICALLY ONCE A DAY FOR UP TO 12 HOURS 01/17/20 025 Discontinued(Me d list cleanup (will not trigger notification to Pharmacy)) fluconazole (Diflucan) 150 MG tablet 03/14/20 025 Discontinued(Me d list cleanup (will not trigger notification to Pharmacy)) ketorolac (Toradol) 10 MG tablet TAKE 1 TABLET BY MOUTH THREE TIMES DAILY FOR 5 DAYS NEEDED FOR PAIN 05/31/20 025 Discontinued(Me d list cleanup (will not trigger notification to Pharmacy)) oxybutynin XL (Ditropan-XL) 10 MG 24 hr tablet Take 10 mg by mouth Once per day. 12/14/19 025 Discontinued(Me d list cleanup (will not trigger notification to Pharmacy)) metroNIDAZOLE (Metrogel) 0.75 % vaginal gelIndications :Bacterial Vaginosis Insert one applicator into vagina at bedtime for 5 nights 45 g 12/20/19 025 Discontinued(Me d list cleanup (will not trigger notification to Pharmacy)) benzonatate (Tessalon Perles) 100 MG capsuleIndicat ions:Influenza A Take 1 capsule (100 mg) by mouth if needed in the morning, at noon, and at bedtime for cough for up to 7 days. Do not crush or chew. 20 capsule 08/09/19 25 025 Discontinued(Me d list cleanup (will not trigger notification to Pharmacy)) sulfamethoxazo le-trimethopri m (Bactrim DS) 800-160 MG tabletIndicati ons:Acute cystitis without hematuria Take 1 tablet by mouth 2 times daily for 3 days. 6 tablet 08/09/19 025 Discontinued(Me d list cleanup (will not trigger notification to Pharmacy)) Active Problems Problem Noted Date Diagnosed Date Preop examination 08/20/2024 Assessment & Plan (08/20/2024 2:24 PM EST): This patient is at average risk for a a low risk procedure. The patient is at acceptable risk for the proposed procedure. Reviewed with patient that no surgery is completely free of risk and this evaluation is to assist surgeon in accurately reviewing informed consent. BMI 26.0-26.9,adult 12/20/2023 Overview (12/20/2023): Lifestyle modification discussed including nutrition stratgeies and phsycial activity recommendations. Assessment & Plan (12/20/2023 10:00 AM EDT): Lifestyle modification discussed including nutrition stratgeies and phsycial activity recommendations. Urinary incontinence 07/20/2023 Overview (04/14/2024): Seen by urology, Jeremie Parker CARDIOLOGIST : US 12/03/23 BLADDER: Well distended and normal. Bilateral ureteral jets are demonstrated. Prevoid bladder volume is 210.1 mL. Postvoid bladder volume is 29.3 mL. 1. Unremarkable sonographic imaging of the kidneys. Specifically, no renal calculi or hydronephrosis of either kidney. 2. Mildly prominent post void bladder residual of 29 mL. Patient desires sling surgery; referral placed to Urogynecology for further evaluation 12/20/23 Follow up urology 02/25/24: -stop oxybutynin. Start Myrbetriq as discussed and prescribed -possible near future in office cystoscopy and or urodynamics for further assessment evaluation -Referral to pelvic floor therapy has been submitted; information provided Follow-up in 1-3 months with [facility] -seen by urogyn 04/11/24 referred to physical therapy for pelvic PT Assessment & Plan (12/20/2023 10:19 AM EDT): Seen by urology, Jeremie Parker, CARDIOLOGIST : US 12/03/23 BLADDER: Well distended and normal. Bilateral ureteral jets are demonstrated. Prevoid bladder volume is 210.1 mL. Postvoid bladder volume is 29.3 mL. 1. Unremarkable sonographic imaging of the kidneys. Specifically, no renal calculi or hydronephrosis of either kidney. 2. Mildly prominent post void bladder residual of 29 mL. Patient desires sling surgery; referral placed to Urogynecology for further evaluation 12/20/23 Assessment & Plan (07/20/2023 10:48 AM EST): Referral to urology 07/20/2023 Other specified health status 03/05/2023 Overview (08/20/2024): -next physical exam due after 07/20/2025 -eye care facilitated by Dr. Martinez Mcadams. -dental home is former [facility]. -Health care proxy paperwork completed by the patient 12/20/2023 Assessment & Plan (07/20/2023 10:47 AM EST): -next physical exam due after 07/20/2024 -eye care facilitated by Dr. Martinez Mcadams. -dental home is former [facility]. Assessment & Plan (03/05/2023 9:43 AM EDT): -next physical exam due after 04/24/2023 -eye care facilitated by Dr. Martinez Mcadams. -dental home is former [facility]. Epiretinal membrane 03/05/2023 Overview (03/05/2023): The patient has an epiretinal membrane in her each eye. She was educated that this condition occurs when wrinkles, creases, or bulges form on the macula. She was educated that the macula is where the clear, central vision comes from and that it must lie flat against the back of the eye to work properly. She was educated that an epiretinal membrane can make things look wavy, or make it difficult to see fine details. She was educated that it can also cause a salcido or cloudy area in her central vision. Her vision is unaffected at this time. No treatment is recommended at this time. The patient stated her understanding. Will monitor at her next full eye exam. -OCT, Retina - OU - Both Eyes Assessment & Plan (07/20/2023 9:01 AM EST): The patient has an epiretinal membrane in her each eye. She was educated that this condition occurs when wrinkles, creases, or bulges form on the macula. She was educated that the macula is where the clear, central vision comes from and that it must lie flat against the back of the eye to work properly. She was educated that an epiretinal membrane can make things look wavy, or make it difficult to see fine details. She was educated that it can also cause a salcido or cloudy area in her central vision. Her vision is unaffected at this time. No treatment is recommended at this time. The patient stated her understanding. Will monitor at her next full eye exam. -OCT, Retina - OU - Both Eyes Assessment & Plan (03/05/2023 9:24 AM EDT): The patient has an epiretinal membrane in her each eye. She was educated that this condition occurs when wrinkles, creases, or bulges form on the macula. She was educated that the macula is where the clear, central vision comes from and that it must lie flat against the back of the eye to work properly. She was educated that an epiretinal membrane can make things look wavy, or make it difficult to see fine details. She was educated that it can also cause a salcido or cloudy area in her central vision. Her vision is unaffected at this time. No treatment is recommended at this time. The patient stated her understanding. Will monitor at her next full eye exam. -OCT, Retina - OU - Both Eyes Pseudophakia of both eyes 03/05/2023 Overview (03/05/2023): Implants clear centrally. Will monitor at her next exam. Assessment & Plan (07/20/2023 9:01 AM EST): Implants clear centrally. Will monitor at her next exam. Assessment & Plan (03/05/2023 9:25 AM EDT): Implants clear centrally. Will monitor at her next exam. Presbyopia of both eyes 03/05/2023 Overview (07/20/2023): Glasses prescription given. Will monitor at the patient's next full eye exam. Assessment & Plan (07/20/2023 9:02 AM EST): Glasses prescription given. Will monitor at the patient's next full eye exam Assessment & Plan (03/05/2023 9:25 AM EDT): Glasses prescription given. Will monitor at the patient's next full eye exam. 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 Last flare 2011. No signs of inflammation on eyes. Off IMT since Acthar stopped 12/2019. PPV/EL ordered. Followed every [address] Mcadams at [facility] in [place]. 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 She was seen on 08/15/[address] Mcadams Assessment & Plan (07/20/2023 9:00 AM EST): Followed every [address] Mcadams at [facility] in [place]. 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 She was seen on 11/30/[address] Mcadams who recommended monitoring. She states she has not had a visual field test in the past. While there is evidence of past inflammation, there does not appear to be active inflammation. She will return in 1 month for a visual field test to document whether there has been vision loss due to her condition. She will continue to follow with Dr. Mcadams regularly and present here for refractions Assessment & Plan (03/05/2023 9:24 AM EDT): Followed every [address] Mcadams at [facility] in [place]. 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 She was seen on 11/30/[address] Mcadams who recommended monitoring. She states she has not had a visual field test in the past. While there is evidence of past inflammation, there does not appear to be active inflammation. She will return in 1 month for a visual field test to document whether there has been vision loss due to her condition. She will continue to follow with Dr. 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 Discovered on routine opthalmic exam 2005. work up with seo professional Dr. 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 Initially treated with methotrexate and IVIG. Failed MTX and Imuran. Previously failed tapering IV-IG below 20g in 2009. Stopped IVIG 01/2015 as no inflammation noted. Stopped prednisone oral 07/2018. Seen by Dr. Martinez Mcadams 07/28/2019 at [facility] [phone]. Inflammation and worsening vasculitis seen on exam 04/2019. Still present on exam 07/2019. She recieved Acthar 80 unitis for retinal vasculitis. She received Acthar 80 U injection twice week 07/28/2019 and reprots she has been off since. No active inflammation on exam 11/30/2022. F/u in 6 months 05/2023. I am ordering her labs every year including CBC, ESR, UA, TOBIN, anti-ds DNA, C3, C4, BUN and Cr as pt not seen rheumatology since 2014. Ordered 02/2023 WNL Last optho visit with Dr. Anselmo Mcadams was 05/2023, stable recommending follow up 1 year -s/p cataract surgery OD with Dr. Betancur (Dr. Betancur has retired) -S/p YAG capsulotomy OD 07/2014m with Dr. Hebert same office as Dr. Mcadams -Continue with Dr. Luis [facility] optometry last seen 11/2022 we scheduled her for visual field on 02/2023. 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 Discovered on routine opthalmic exam 2005. work up with seo professional Dr. 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 Initially treated with methotrexate and IVIG. Failed MTX and Imuran. Previously failed tapering IV-IG below 20g in 2009. Stopped IVIG 01/2015 as no inflammation noted. Stopped prednisone oral 07/2018. Seen by Dr. Martinez Mcadams 07/28/2019 at [facility] [phone]. Inflammation and worsening vasculitis seen on exam 04/2019. Still present on exam 07/2019. She recieved Acthar 80 unitis for retinal vasculitis. She received Acthar 80 U injection twice week 07/28/2019 and reprots she has been off since. No active inflammation on exam 11/30/2022. F/u in 6 months 05/2023. I am ordering her labs every year including CBC, ESR, UA, TOBIN, anti-ds DNA, C3, C4, BUN and Cr as pt not seen rheumatology since 2014. Ordered 02/2023 WNL Last optho visit with Dr. Anselmo Mcadams was 05/2023, stable recommending follow up 1 year -s/p cataract surgery OD with Dr. Betancur (Dr. Betancur has retired) -S/p YAG capsulotomy OD 07/2014m with Dr. Hebert same office as Dr. Mcadams -Continue with Dr. Luis [facility] optometry last seen 11/2022 we scheduled her for visual field on 02/2023. 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 Discovered on routine opthalmic exam 2005. work up with seo professional Dr. 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 Initially treated with methotrexate and IVIG. Failed MTX and Imuran. Previously failed tapering IV-IG below 20g in 2009. Stopped IVIG 01/2015 as no inflammation noted. Stopped prednisone oral 07/2018. Seen by Dr. Martinez Mcadams 07/28/2019 at [facility] [phone]. Inflammation and worsening vasculitis seen on exam 04/2019. Still present on exam 07/2019. She recieved Acthar 80 unitis for retinal vasculitis. She received Acthar 80 U injection twice week 07/28/2019 and reprots she has been off since. No active inflammation on exam 11/30/2022. F/u in 6 months 05/2023. I am ordering her labs every year including CBC, ESR, UA, TOBIN, anti-ds DNA, C3, C4, BUN and Cr as pt not seen rheumatology since 2014. Ordered 02/2023. Last optho visit with Dr. Anselmo Mcadams was 11/2022. -s/p cataract surgery OD with Dr. Betancur (Dr. Betancur has retired) -S/p YAG capsulotomy OD 07/2014m with Dr. Hebert same office as Dr. Mcadams -Continue with Dr. Luis [facility] optometry last seen 11/2022 we scheduled her for visual field on 02/2023. 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 Discovered on routine opthalmic exam 2005. work up with seo professional Dr. 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 Initially treated with methotrexate and IVIG. Failed MTX and Imuran. Previously failed tapering IV-IG below 20g in 2009. Stopped IVIG 01/2015 as no inflammation noted. Stopped prednisone oral 07/2018. Seen by Dr. Martinez Mcadams 07/28/2019 at [facility] [phone]. Inflammation and worsening vasculitis seen on exam 04/2019. Still present on exam 07/2019. She recieved Acthar 80 unitis for retinal vasculitis. She received Acthar 80 U injection twice week 07/28/2019 and reprots she has been off since. No active inflammation on exam 11/30/2022. F/u in 6 months 05/2023. I am ordering her labs every year including CBC, ESR, UA, TOBIN, anti-ds DNA, C3, C4, BUN and Cr as pt not seen rheumatology since 2014. Ordered 02/2023. Last optho visit with Dr. Anselmo Mcadams was 11/2022. -s/p cataract surgery OD with Dr. Betancur (Dr. Betancur has retired) -S/p YAG capsulotomy OD 07/2014m with Dr. Hebert same office as Dr. Mcadams -Continue with Dr. Luis [facility] optometry last seen 11/2022 we scheduled her for visual field on 02/2023. Resolved Problems Problem Noted Date Diagnosed Date Resolved Date COVID-19 02/17/2024 08/20/2024 Assessment & Plan (02/17/2024 7:28 PM EDT): Reviewed indications and options of paxlovid, pt has mild symptoms currently and is on day 1 of illness, at this time will monitor symptoms, note for work given Bacterial vaginosis 12/20/2023 08/20/19 25 Overview (12/20/2023): Urinalysis on 12/18/23 was normal Vaginal swab on 12/18/23 was positive for bacterial vaginosis Will order Urine culture 12/20/23 Start Metronidazole 0.75% gel x 5 nights 12/20/23 Assessment & Plan (12/20/2023 10:09 AM EDT): Urinalysis on 12/18/23 was normal Vaginal swab on 12/18/23 was positive for bacterial vaginosis Will order Urine culture 12/20/23 Start Metronidazole 0.75% gel x 5 nights 12/20/23 Carpal tunnel syndrome 07/20/202308/20 Overview (05/30/2024): NCS 09/13/23 :Moderately severe bilateral median neuropathy across carpal tunnel. S/p right carpal tunnel release 05/29/24 Assessment & Plan (07/20/2023 10:47 AM EST): Referral to nerve conductive study 07/20/2023 Posterior knee pain, right 07/20/2023 0 08/20/2024 Overview (12/20/2023): X- ray and US ordered 07/20/2023 to rule out cyst US 10/22/23 Unremarkable examination. No Kowalski's cyst is noted of the right popliteal fossa. Physical therapy offered, patient would like to do home exercises. She will call if she wants a referral. Assessment & Plan (12/20/2023 10:20 AM EDT): X- ray and US ordered 07/20/2023 to rule out cyst US 10/22/23 Unremarkable examination. No Kowalski's cyst is noted of the right popliteal fossa. Physical therapy offered, patient would like to do home exercises. She will call if she wants a referral. Assessment & Plan (07/20/2023 10:52 AM EST): X- ray and US ordered 07/20/2023 to rule out cyst Back pain 01/26/2023 08/20/2024 Assessment & Plan (01/26/2023 10:56 PM EDT): Pt w neck/lower back pain after accident w normal neurologic exam. Seems muscular in nature -Given ongoing pain will do X-Ray of neck and lower back. -Tylenol PRN for mild pain, NSAIDs for moderate pain. -Continue muscle relaxants prescribed in ED -Lidocaine patches -Warm compresses -Referred today to PT -If neg images and ongoing sx despite therapy, will need to consider MRI of neck to further evaluate numbness sensation in R arm. Will hold for now given normal neurologic exam. Also possibly peripheral nerve compression from muscle tension. -Alarm signs and symptoms Encounters Date Type Department Care Team Description 08/21/2024 Telephone [facility] MEDICINE [address] [place] [id number] Yarely Kruger MD Pre-op Exam 08/20/2024 1:30 PM EST Office Visit [facility] MEDICINE [address] [place] [phone] Yarely Kruger MD Preop examination (Primary Dx); Dietary counseling; Exercise counseling; Systemic lupus erythematosus, unspecified SLE type, unspecified organ involvement status (CMS/HCC); Other specified health status 08/20/2024 Travel 08/19/[address] [address] Dyan Price MA chartprep 08/15/[address] [address] Yarely Kruger MD Walk in appt request 08/09/2024 9:20 AM EST Office Visit [facility] WALK-IN CENTER [address] [place] [phone] Gautam Mcdonald MD Influenza A; Acute cystitis without hematuria 08/09/2024 Travel 06/25/[address] [phone] Yarely Kruger MD Referral from Last 3 Months Immunizations Name Administration Dates Next Due Hep B, adult 11/13/2002,06/12/2002,04/08/2002 MMR 11/08/2001,12/05/1984 TD (adult), 2 Lf tetanus tox oid, preservative free, adsorbed 08/13/1998 Tdap 05/05/2022,02/09/2016 Family History Medical History Relation Name Comments Asthma Mother Relation Name Status Comments Mother Social History Tobacco Use Types Packs/Day Years Used Date Smoking Tobacco: Never Passive Smoke Exposure: Never Smokeless Tobacco: Never Tobacco Cessation:Counseling Given: Not Answered Depression Answer Date Recorded Patient Health Questionnaire-9 Score 0 08/20/2024 Patient Health Questionnaire-9 Score 0 08/20/2024 Last PHQ-9: Questionnaire Data Not on file 0 08/20/2024 Housing Stability Answer Date Recorded What is your housing situation today? I have greg sing 08/20/[address] you li [...] not to disclose 2021 10:15 AM EDT Last Filed Vital Signs Vital Sign Reading [...] Mass Index 30.26 08/20/2024 1:35 PM EST Plan of Treatment Health Maintenance Due Date Last Done Comments Family Planning (PISQ) 12/19/2024 12/20/2023 Influenza Vaccine (#1) 2025 Postp oned from 03/23/2024 (Patient Refused) Alcohol/Substance Use Screening 08/20/2025 08/20/2024 COVID-19 Vaccine ( season) 2025 08/10/2021, 07/11/2021 Postponed from 03/23/2024 (Patient Refused) Depression Screening 08/20/2025 08/20/2024, 08/20/19 SDOH Screening 08/20/2025 08/20/2024 Tobacco Screening 08/20/2025 08/20/2024 Mammogram 08/30/2025 08/30/2023, 02/2024, 11/22/2021, Additional history exists Cervical Cancer Screening 07/20/2028 HPV/Cotest 07/20/2028 07/20/2023, 04/19/2018 Pap Smear 07/20/2028 07/20/2023, 04/19/2018 Zoster Vaccines (1 of 2) 2031 DTaP/Tdap/Td Vaccines (4 - Td or Tdap) 05/05/2032 05/05/2022, 02/09/2016, 08/13/1998 RSV Patients and Patients Aged 60 years or older (1 - 1-dose 75+ series) 2056 Hepatitis B Vaccines Completed 11/13/2002, 06/12/2002, 04/08/2002 Hepatitis C Screening Completed 04/19/2018 HIV Screening Completed 07/20/2023, 04/19/2018 HIB Vaccines Aged Out No longer eligi ble based on patient's age to complete this topic HPV Vaccines Aged Out No longer eligi ble based on patient's age to complete this topic Hepatitis A Vaccines Aged Out No long er eligible based on patient's age to complete this topic IPV Vaccines Aged Out No longer eligi ble based on patient's age to complete this topic Meningococcal Vaccine Aged Out No sera rita eligible based on patient's age to complete this topic Pneumococcal Vaccine: Pediatrics (0 to 5 Years) and At-Risk Patients (6 to 49) Years) Aged Out No longer eligible based on patient's age to complete this topic RSV under 20 months Aged Out No longe r eligible based on patient's age to complete this topic Rotavirus Vaccines Aged Out No longer eligible based on patient's age to complete this topic Procedures Procedure Name Priority Date/Time Associated Diagnosis Comments CULTURE, URINE, ROUTINE Routine 08/09/2024 9:29 AM EST Acute cystitis without hematuria POCT URINALYSIS DIPSTICK Routine 08/09/2024 9:28 AM EST Acute cystitis without hematuria POC SPAIN ID NOW STREP A Routine 08/09/2024 9:26 AM EST Influenza A POCT INFLUENZA B (ID NOW RAPID MOLECULAR) Routine 08/09/2024 9:26 AM EST Influenza A POCT INFLUENZA A (ID NOW RAPID MOLECULAR) Routine 08/09/2024 9:26 AM EST Influenza A POCT RAPID COVID ANTIGEN Routine 08/09/2024 9:26 AM EST Influenza A BI MAMMOGRAM SCREENING BILATERAL Routine 08/30/2023 HIV 1/2 ANTIGEN/ANTIBODY, FOURTH GENERATION W/RFL Routine 07/20/2023 11:16 AM EST Routine screening for STI (sexually transmitted infection) HPV MRNA E6/E7 REFLEX TO HPV 16, 18/45 Routine 07/20/2023 11:00 AM EST PAP SMEAR Routine 07/20/2023 11:00 AM EST HM HEPATITIS C ANTIBODY Routine 04/19/2018 from Last 3 Months or Most Recently Relevant to Health Maintenance Results * Culture, Urine, Routine (08/09/2024 9:29 AM EST) Urine Urine specimen obtained by clean catch procedure / Unknown 08/09/2024 9:29 AM EST 08/09/2024 1:46 PM EST Comment:[facility] - 08/12/2024 7:57 AM EST Escherichia coli Quant > 100,000 cfu/mL Escherichia coli: Ampicillin >=32(R) Escherichia coli: Cefazolin (Urine) 2(S) Escherichia coli: Cefepime <=0.12(S) Escherichia coli: Ceftriaxone <=0.25(S) Escherichia coli: Ciprofloxacin <=0.06(S) Escherichia coli: Gentamicin <=1(S) Escherichia coli: Nitrofurantoin <=16(S) Escherichia coli: Trimethoprim/Sulfamethoxazole <=20(S) Specimen Source: Urine clean catch Gautam Mcdonald MD LAB MICROBIOLOGY - GENERAL ORDER BONG Final Result Performing Organization Address [facility] de Phone Number [facility] [address] [place] [phone] * (ABNORMAL) POCT Urinalysis (08/09/2024 9:28 AM EST) Color, UA Yellow Clarity, UA Clear Glucose, UA Negative Bilirubin, UA Negative Ketones, UA Negative Spec Grav, UA 1.020 Blood, UA Negative Negative, None Detected pH, UA 7.0 Protein, UA Trace Comment:30 mg Urobilinogen, UA 1.0 Leukocytes, UA Trace Negative, Rare, Trace Nitrite, UA Positive(A) Negative, None Detected Appearance, UA clear QC Media Lot # [id number] Lot# Expiration Date 93,025 Urine 08/09/2024 9:28 AM EST Gautam Mcdonald MD POINT OF CARE TEST ENTER/EDIT OR DERABLES Final Result * POCT Rapid Influenza B SPAIN ID NOW (08/09/2024 9:26 AM EST) Influenza B Negative Negative, Indeterminate [facility] QC Media Lot # [id number] [facility] Lot# Expiration Date 8,626 [facility] Swab 08/09/2024 9:26 AM EST Gautam Mcdonald MD POINT OF CARE TEST ENTER/EDIT OR DERABLES Edited Result - Final Performing Organization Address [facility] Co de Phone Number [facility] [address] [place] [address] [phone] * (ABNORMAL) POCT Rapid Influenza A SPAIN ID NOW (08/09/2024 9:26 AM EST) Influenza A Positive( A) Negative, Indeterminate [facility] QC Media Lot # [id number] [facility] Lot# Expiration Date [facility] Swab 08/09/2024 9:26 AM EST Gautam Mcdonald MD POINT OF CARE TEST ENTER/EDIT OR DERABLES Final Result Performing Organization Address [facility]/ZIP Co de Phone Number [facility] [address] [place] [phone] * POCT Rapid Strep A SPAIN ID NOW (08/09/2024 9:26 AM EST) Rapid Strep A Screen Negative Negative, None Detected QC Media Lot # [id number] Lot# Expiration Date 41,126 Swab 08/09/2024 9:26 AM EST Gautam Mcdonald MD POINT OF CARE TEST ENTER/EDIT OR DERABLES Final Result * POCT Rapid Covid-19 BinaxNOW (08/09/2024 9:26 AM EST) Rapid COVID Ag Negative [facility] QC Media Lot # [id number] [facility] Lot# Expiration Date [facility] Swab 08/09/2024 9:26 AM EST Gautam Mcdonald MD POINT OF CARE TEST ENTER/EDIT OR DERABLES Final Result Performing Organization Address [facility]/ZIP Co de Phone Number [facility] [address] [place] [address] [phone] * BI Mammogram Screening Bilateral (08/30/2023) Anatomical Region Laterality Modality Breast Bilateral Mammography Historical Provider IMG BI PROCEDURES Final R esult * HIV-1/2 Antigen and Antibodies, Fourth Generation, with Reflexes (07/20/2023 11:16 AM EST) Pathologist [facility] HIV AB/AG Nonreactive Nonreactive [facility] Comment:HIV-1 p24 Ag and/or HIV-1/HIV-2 Ab not detected.A test result that is nonreactive does not exclude thepossibility of exposure to or infection with HIV-1 and/orHIV-2. Nonreactive results in this assay for individualswith prior exposure to HIV-1 and/or HIV-2 may be due toantigen and antibody levels that are below the limit ofdetection of this assay.The [employer] HIV Ag/Ab Combo assay result andsupplemental assay results should be interpreted inconjunction with the patient's clinical presentation,history and other laboratory results. If the results areinconsistent with clinical evidence, additional testing issuggested to confirm the result. Blood Venous blood specimen / Unknown 07/20/2023 11:16 AM EST 07/20/2023 1:16 PM EST us Yarely Kruger MD LAB BLOOD ORDERABLES Final Result [facility] [address] [place] [phone] * HPV mRNA E6/E7 w/Reflex to HPV Genotypes 16, 18/45 (07/20/2023 11:00 AM EST) Pathologist [facility] HPV nRNA E6/E7 Not Detected Not Detected [facility] Comment:Methodology: Transcr iption-Mediated AmplificationThis assay detects E6/E7 viral messenger RNA (mRNA) from 14high-risk HPV types (16,18,31,33,35,39,45,51,52,56,58,59,66,68).Cervical sources are required for HPV testing.If a vaginal source from a patient who has had atotal hysterectomy with removal of cervix wassubmitted, please contact the testing laboratoryfor alternative testing options.For additional information, please refer [email or web address](This link if provided for information/educational purposes only.)THIS TEST WAS PERFORMED AT:[address] [place] [phone] TOMPKINS MD HPV mRNA E6/E7 TNP [facility] HPV 16 RNA TNP [facility] HPV 18/45 RNA TNP [facility] 07/20/2023 11:0 0 AM EST 07/24/2023 8:00 AM EST us Yarely Kruger MD LAB CYTOLOGY ORDERABLES Fi nal Result [facility] [address] [place] [phone] * Pap Smear (07/20/2023 11:00 AM EST) 07/20/2023 11:0 0 AM EST 07/24/2023 8:00 AM EST Narrative [facility] - 07/26/2023 12:54 PM EST ----- ------- Name: Adelaida Husain ? Age/Sex: 43/F ? : 1980 Unit#: [id number] ?? Attend Dr: Yarely Kruger MD ?Re07/20/23 ?Status: DEP REF ? Location: [facility] ? Disch: ? ----- ------- SPEC : [id number] ? RECD: 07/24/23 ? STATUS: ??SOUT ? REQ NUM: [id number] ? SYDNIE: 07/20/23 ? SUBM DR: Yarely Kruger MD ? ENTERED: ??07/24/23 ?SP TYPE: Pap Smr ?OTHR DR: ? ORDERED: ??Pap Smear ? Interpretation ?? Satisfactory for evaluation. ?? Fungal organisms consistent with Mary species. ?? Negative for intraepithelial lesion or malignancy. ?HPV mRNA E6/E7: ?NOT DETECTED ? This assay detects E6/E7 viral messenger RNA (mRNA) from 14 high-risk HPV types (16, 18, ?? 31, 33, 35, 39, 45, 51, 52, 56, 58, 59, 66, 68) ?? HPV testing performed by [facility], [place], [place]. ??See reference laboratory ?? portion of the EMR for entire report. ?Clinical Information LMP: Unknown date Previous PAP test: 2018, NILM, HPV negative ? Material Received ?? ThinPrep-Cervical ----- ------- Signed (signature on file) ESTEE Garcia (ASCP) 07/26/23 1254 ? ----- ------- ? END OF REPORT ? Yarely Kruger MD LAB CYTOLOGY ORDERABLES Fi nal Result [facility] [address] [place] [address] [phone] * HM Hepatitis C Antibody (04/19/2018) Hepatitis C Antibody Nonreactive Blood Historical Provider HEALTH MAINTENANCE Final Result from Last 3 Months or Most Recently Relevant to Health Maintenance Insurance [facility] [place] Advance Directives Documents on File Type Date Recorded Patient Actuarial Mathematician Expl anation Advance Directives and Living Will 12/20/2023 Health Care Proxy 12/20/23 Care Teams Hiv Cts Specialist Relationship Specialty Start Date End Date Weakley, MD Yarely [address] [place] [address] [phone] PCP - General Family Medicine 07/23/18 Zeny Reddy MD [address] [place], [place] [phone] Orthopaedic Surgery 06/11/24 Dr. Anselmo Mcadams MD [facility] [address] [facility] [address] Ophthalmology 08/15/24
--- OUTSIDE RECORDS SUMMARY | 2024-08-25 17:19 | XMS_ITS | Encounter Summary ---
Author Organization [employer] Address [address] [facility] 7t [place] [address] Care Team Providers Care Shipping And Receiving Specialist Name Role Phone Yarely Kruger MD Primary Care Provider [phone] Zeny Reddy MD Unavailable [phone] Reason for Visit * Reason Onset Date Comments Walk in appt request 08/15/2024 Encounter Details Date Type Department Care Team ([facility] st Contact Info) Description 08/15/2024 Telephone [facility] [address] [place], [place] [phone] Yarely Kruger MD [address] [place], [place] [phone] Walk in appt request Social History Tobacco Use Types Packs/Day Years [...] encounter Miscellaneous Notes * Telephone Encounter - Linh Harmon RN - 08/15/2024 2:36 PM EST Pt walked in to the [facility] nurses desk . Pt requested a pre-op appointment for eye surgery on 09/05/24 at [facility] . EKG / CBC at the discretion of the PCP. Pt to bring in pre-op form to be completed ,and faxed during the pt's pre-op appt on 08/20/24 at [address] Kruger . Form to be faxed to fax number . documented in this encounter Plan of Treatment Not on file documented as of this encounter Visit Diagnoses Not on filedocumented in this encounter Additional Health Concerns Assessment Noted Time PHQ-9 Depression Total Score: 0 03/05/20 23 9:12 AM EDT documented as of this encounter Care Teams Shipping And Receiving Specialist Relationship Specialty Start Date End Date Yarely Kruger MD [address] [place] [phone] PCP - General Family Medicine 07/23/18 Zeny Reddy MD [address] [facility] [address] [place] [phone] Orthopaedic Surgery 06/11/24 Dr. Anselmo Mcadams MD [facility] [address] [facility] [address] Ophthalmology 08/15/24 documented as of this encounter
--- OUTSIDE RECORDS SUMMARY | 2024-08-25 17:19 | XMS_ITS | Encounter Summary ---
Author Organization [employer] Address [address] [facility] 7t [place] [address] Care Team Providers Care Form Setter/Driver Name Role Phone Yarely Kruger MD Primary Care Provider [phone] Zeny Reddy MD Unavailable [phone] Reason for Visit * Reason Comments Cough Encounter Details Date Type Department Care Team ([facility] Contact Info) Description 08/09/2024 9:20 AM EST Office Visit [facility] [address] [place] [address] [phone] Gautam Mcdonald MD [address] [place] [address] Influenza A; Acute cystitis without hematuria Social History Tobacco Use Types Packs/Day Years Used Date Smoking Tobacco: Never Smokeless Tobacco: Never Tobacco Cessation:Counseling Given: [...] Sign Reading Time Taken Comments Blood Pressure 120/86 08/09/2024 9:17 AM EST Pulse 86 08/09/2024 9:17 AM EST Temperature 37.1 ??C (98.8 ??F) 08/09/2024 9:17 AM ES T Respiratory Rate 12 08/09/2024 9:17 AM EST Oxygen Saturation 100% 08/09/2024 9:52 AM EST Inhaled Oxygen Concentration - - Weight 66.8 kg (147 lb 4 oz) 08/09/2024 9:17 AM EST Height 149.9 cm (4' 11 ) 08/09/2024 9:17 AM EST Body Mass Index 29.74 08/09/2024 9:17 AM EST documented in this encounter Progress Notes * Gautam Mcdonald MD - 08/09/2024 9:20 AM EST Subjective History was provided by the patient. Adelaida Husain is a 44 y.o. female who presents for evaluation of cough, congestion, rhinorrhea, sore throat, and body ache for 4 days. Denies F/C/N/V/D. Also with dysuria since yesterday. No abdominal pain. No back pain. Has an IUD. Underlying SLE. Objective Vitals: 08/09/24 0917 08/09/24 0952 BP: 120/86 BP Location: Right arm Patient Position: Sitting BP Cuff Size: Large adult Pulse: 86 Resp: 12 Temp: 98.8 ??F (37.1 ??C) TempSrc: Oral SpO2: 93% 100% Weight: 147 lb 4 oz (66.8 kg) Height: 4' 11 (1.499 m) Physical Exam Vitals reviewed. Constitutional: Appearance: Normal appearance. She is normal weight. HENT: Head: Normocephalic and atraumatic. Right Ear: Tympanic membrane, ear canal and external ear normal. Left Ear: Tympanic membrane, ear canal and external ear normal. Nose: Congestion present. No rhinorrhea. Mouth/Throat: Mouth: Mucous membranes are moist. Pharynx: Oropharynx is clear. Posterior oropharyngeal erythema present. No oropharyngeal exudate. Comments: No thrush. Eyes: Extraocular Movements: Extraocular movements intact. Conjunctiva/sclera: Conjunctivae normal. Cardiovascular: Rate and Rhythm: Normal rate and regular rhythm. Heart sounds: Normal heart sounds. Pulmonary: Effort: Pulmonary effort is normal. Breath sounds: Normal breath sounds. Abdominal: General: Abdomen is flat. Bowel sounds are normal. There is no distension. Palpations: Abdomen is soft. Tenderness: There is no abdominal tenderness. There is no right CVA tenderness, left CVA tenderness, guarding or rebound. Musculoskeletal: General: Normal range of motion. Cervical back: Normal range of motion and neck supple. Lymphadenopathy: Cervical: No cervical adenopathy. Skin: General: Skin is warm and dry. Neurological: General: No focal deficit present. Mental Status: She is alert and oriented to person, place, and time. Mental status is at baseline. Psychiatric: Mood and Affect: Mood normal. Behavior: Behavior normal. Thought Content: Thought content normal. Judgment: Judgment normal. Office Visit on 08/09/2024 Component Date Value Ref Range Status Rapid COVID Ag 08/09/2024 Negative Final QC Media Lot # 08/09/2024 [id number] Final Lot# Expiration Date 08/09/2024 8,226 Final Influenza A 08/09/2024 Positive (A) Negative, Indeterminate Final QC Media Lot # 08/09/2024 [id number] Final Lot# Expiration Date 08/09/2024 8,226 Final Influenza B 08/09/2024 Negative Negative, Indeterminate Final QC Media Lot # 08/09/2024 [id number] Final Lot# Expiration Date 08/09/2024 8,626 Final Rapid Strep A Screen 08/09/2024 Negative Negative, None Detected Final QC Media Lot # 08/09/2024 [id number] Final Lot# Expiration Date 08/09/2024 41,126 Final Color, UA 08/09/2024 Yellow Final Clarity, UA 08/09/2024 Clear Final Glucose, UA 08/09/2024 Negative Final Bilirubin, UA 08/09/2024 Negative Final Ketones, UA 08/09/2024 Negative Final Spec Grav, UA 08/09/2024 1.020 Final Blood, UA 08/09/2024 Negative Negative, None Detected Final pH, UA 08/09/2024 7.0 Final Protein, UA 08/09/2024 Trace Final 30 mg Urobilinogen, UA 08/09/2024 1.0 Final Leukocytes, UA 08/09/2024 Trace Negative, Rare, Trace Final Nitrite, UA 08/09/2024 Positive (A) Negative, None Detected Final Appearance, UA 08/09/2024 clear Final QC Media Lot # 08/09/2024 [id number] Final Lot# Expiration Date 08/09/2024 93,025 Final Adelaida was seen today for cough. Diagnoses and all orders for this visit: Influenza A - POCT Rapid Covid-19 BinaxNOW - POCT Rapid Influenza A SPAIN ID NOW - POCT Rapid Influenza B SPAIN ID NOW - POCT Rapid Strep A SPAIN ID NOW - benzonatate (Tessalon Perles) 100 MG capsule; Take 1 capsule (100 mg) by mouth if needed in the morning, at noon, and at bedtime for cough for up to 7 days. Do not crush or chew. Acute cystitis without hematuria - POCT Urinalysis - Culture, Urine, Routine - sulfamethoxazole-trimethoprim (Bactrim DS) 800-160 MG tablet; Take 1 tablet by mouth 2 times daily for 3 days. Patient with a clinical presentation of Influenza A and UTI Symptom onset 4 days ago Normal pulmonary exam and no respiratory distress O2 sat reassuring (repeat 100% on RA) Discussed supportive care with ample hydration, sleep position and rest OTC supportive medications reviewed Droplet precautions discussed Will treat with Benzonatate prn for cough and Bactrim DS for UTI Potential adverse effects of the medications reviewed Check UCx Advised to contact the clinic if no improvement of symptoms Indications for UC/ER use reviewed documented in this encounter Plan of Treatment Not on file documented as of this encounter Procedures Procedure Name Priority Date/Time Associated Diagnosis Comments CULTURE, URINE, ROUTINE Routine 08/09/2024 9:29 AM EST Acute cystitis without hematuria POCT URINALYSIS DIPSTICK Routine 08/09/2024 9:28 AM EST Acute cystitis without hematuria POCT INFLUENZA B (ID NOW RAPID MOLECULAR) Routine 08/09/2024 9:26 AM EST Influenza A POCT INFLUENZA A (ID NOW RAPID MOLECULAR) Routine 08/09/2024 9:26 AM EST Influenza A POC SPAIN ID NOW STREP A Routine 08/09/2024 9:26 AM EST Influenza A POCT RAPID COVID ANTIGEN Routine 08/09/2024 9:26 AM EST Influenza A documented in this encounter Results * Culture, Urine, Routine (08/09/2024 9:29 AM EST) Urine Urine specimen obtained by clean catch procedure / Unknown 08/09/2024 9:29 AM EST 08/09/2024 1:46 PM EST Comment:[facility] Narrative [facility] - 08/12/2024 7:57 AM EST Escherichia coli Quant > 100,000 cfu/mL Escherichia coli: Ampicillin >=32(R) Escherichia coli: Cefazolin (Urine) 2(S) Escherichia coli: Cefepime <=0.12(S) Escherichia coli: Ceftriaxone <=0.25(S) Escherichia coli: Ciprofloxacin <=0.06(S) Escherichia coli: Gentamicin <=1(S) Escherichia coli: Nitrofurantoin <=16(S) Escherichia coli: Trimethoprim/Sulfamethoxazole <=20(S) Specimen Source: Urine clean catch us Gautam Mcdonald MD LAB MICROBIOLOGY - GENERAL ORDER BONG Final Result [facility] [address] [place] [phone] * (ABNORMAL) POCT Urinalysis (08/09/2024 9:28 AM EST) Pathologist [facility] Color, UA Yellow Clarity, UA Clear Glucose, [...] Date 93,025 Urine 08/09/2024 9:28 AM EST us Gautam Mcdonald MD POINT OF CARE TEST ENTER/EDIT OR DERABLES Final Result * POCT Rapid Strep A SPAIN ID NOW (08/09/2024 9:26 AM EST) [facility] Rapid Strep A Screen Negative Negative, None Detected QC Media Lot # [id number] Lot# Expiration Date 41,126 Swab 08/09/2024 9:26 AM EST us Gautam Mcdonald MD POINT OF CARE TEST ENTER/EDIT OR DERABLES Final Result * POCT Rapid Influenza B SPAIN ID NOW (08/09/2024 9:26 AM EST) [facility] Influenza B Negative Negative, Indeterminate [facility] QC Media Lot # [id number] [facility] Lot# Expiration Date 8,626 [facility] Swab 08/09/2024 9:26 AM EST us Gautam Mcdonald MD POINT OF CARE TEST ENTER/EDIT OR DERABLES Edited Result - Final [facility] [address] [place] [phone] * (ABNORMAL) POCT Rapid Influenza A SPAIN ID NOW (08/09/2024 9:26 AM EST) [facility] Influenza A Positive( A) Negative, Indeterminate [facility] QC Media Lot # [id number] [facility] Lot# Expiration Date [facility] Swab 08/09/2024 9:26 AM EST Gautam Mcdonald MD POINT OF CARE TEST ENTER/EDIT OR DERABLES Final Result Performing Organization Address [facility]/ZIP Co de Phone Number [facility] [address] [place] [phone] * POCT Rapid Covid-19 BinaxNOW (08/09/2024 9:26 AM EST) Rapid COVID Ag Negative [facility] QC Media Lot # [id number] [facility] Lot# Expiration Date [facility] Swab 08/09/2024 9:26 AM EST Gautam Mcdonald MD POINT OF CARE TEST ENTER/EDIT OR DERABLES Final Result Performing Organization Address [facility] Co de Phone Number [facility] [address] [place] [phone] documented in this encounter Visit Diagnoses Diagnosis Influenza A Influenza with other respiratory manifestations Acute cystitis without hematuria documented in this encounter Additional Health Concerns Assessment Noted Time PHQ-9 Depression Total Score: 0 03/05/20 23 9:12 AM EDT documented as of this encounter Care Teams Form Setter/Driver Relationship Specialty Start Date End Date Yarely Kruger MD [address] [place] [phone] PCP - General Family Medicine 07/23/18 Zeny Reddy MD [address] [place] [address] Orthopaedic Surgery 06/11/24 documented as of this encounter
--- OUTSIDE RECORDS SUMMARY | 2024-08-25 17:19 | XMS_ITS | Encounter Summary ---
Author Organization [employer] Address [address] [facility] 7t [place] [address] Care Team Providers Care Filling Room Operator Name Role Phone Yarely Kruger MD Primary Care Provider [phone]- [phone] Zeny Reddy MD Unavailable [phone] Reason for Visit * Reason Onset Date Comments Pre-op Exam 08/21/2024 Encounter Details Date Type Department Care Team ([facility] st Contact Info) Description 08/21/2024 Telephone [facility] [address] [place], [place] [phone] Yarely Kruger MD [address] [place], [place] [phone] Pre-op Exam Social History Tobacco Use Types Packs/Day Years [...] encounter Miscellaneous Notes * Telephone Encounter - Sherry Paris MA - 08/21/2024 3:06 PM EST Contacted [facility] to make sure that they received the clearance from our office in regards to the pt's upcoming procedure in August. Had to LVM with the certified surgical assistant of Dr. Anselmo Mcadams withcall back number and direct ext if they were to return the call. LB documented in this encounter Plan of Treatment Not on file documented as of this encounter Visit Diagnoses Not on filedocumented in this encounter Additional Health Concerns Assessment Noted Time PHQ-9 Depression Total Score: 0 08/20/19 25 1:39 PM EST documented as of this encounter Care Teams Filling Room Operator Relationship Specialty Start Date End Date Yarely Kruger MD [address] [place] [address] PCP - General Family Medicine 07/23/18 Zeny Reddy MD [address] [place] [address] Orthopaedic Surgery 06/11/24 Dr. Anselmo Mcadams MD [facility] [address] [place] [address] Ophthalmology 08/15/24 documented as of this encounter
--- OUTSIDE RECORDS SUMMARY | 2024-08-25 17:19 | XMS_ITS | Encounter Summary ---
Author Organization [employer] Address [address] [facility] 7t [place] [address] Care Team Providers Care Floor Layer Apprentice Name Role Phone Yarely Kruger MD Primary Care Provider [phone] Zeny Reddy MD Unavailable Encounter Details Date Type Department Care Team (Late st Contact Info) Description 09/13/2022 Orders Only [facility] [address] [place], [place] [phone] Nevin Serrano MD [address] [place], [place] [phone] Vision problem (Primary Dx) Social History Tobacco Use Types [...] Associated Diagnosis Comments CULTURE, URINE, ROUTINE Routine 02/20/2023 6:59 PM EDT Vision problem BACTERIAL VAGINOSIS PANEL Routine 02/20/2023 12:00 AM EDT Vision problem documented in this encounter Results * Culture, Urine, Routine (02/20/2023 6:59 PM EDT) Urine specimen obtained by clean catch procedure / Unknown 02/20/2023 6:59 PM EDT 02/21/2023 12:13 PM EDT Comment:[facility] Narrative [facility] - 02/23/2023 8:33 AM EDT Escherichia coli Quant > 100,000 cfu/mL Escherichia coli: Ampicillin 4(S) Escherichia coli: Ceftriaxone <=0.25(S) Escherichia coli: Gentamicin <=1(S) Escherichia coli: Levofloxacin <=0.12(S) Escherichia coli: Nitrofurantoin <=16(S) Escherichia coli: Trimethoprim/Sulfamethoxazole <=20(S) Specimen Source: Urine clean catch Gautam Mcdonald MD LAB MICROBIOLOGY - GENERAL ORDER BONG Final Result Performing Organization Address [facility] Co de Phone Number [facility] [address] [place] [phone] * (ABNORMAL) Bacterial Vaginosis (02/20/2023 12:00 AM EDT) Trichomonas DNA Probe Negative Negative [facility] Gardnerella DNA Probe Positive(A) Negative [facility] Mary DNA Probe Positive(A) Negative [facility] 02/20/2023 02/20/2023 Gautam Mcdonald MD LAB MICROBIOLOGY - GENERAL ORDER BONG Final Result Performing Organization Address [facility] Co de Phone Number [facility] [address] [place] [phone] documented in this encounter Visit Diagnoses Diagnosis Vision problem- Primary Problems with sight documented in this encounter Care Teams Floor Layer Apprentice Relationship Specialty Start Date End Date Yarely Kruger MD [address] [place] [phone] PCP - General Family Medicine 07/23/18 Zeny Reddy MD [address] [place] [address] Orthopaedic Surgery 06/11/24 Dr. Anselmo Mcadams MD [facility] [address] [address] Ophthalmology 08/15/24 documented as of this encounter
== END 2024-08-25 16:40 | disposition home or self-care (01) ==
LOC: HO.HUSH 16:15
PROVIDERS: PCP Family Medicine; Visit Provider Nurse Practitioner Family
DX: N39.3 Stress incontinence (female) (male) (principal)
CPT/HCPCS: 99213

== ENCOUNTER 2024-09-04 15:03 | Outpatient (REF) | payer MEDICAID, SELFPAY ==
--- OUTSIDE RECORDS SUMMARY | 2024-09-04 15:07 | XMS_ITS | Encounter Summary ---
Author Organization [employer] Address [address] [place] [address] 7t [place] [address] Care Team Providers Care Miller Head Assistant Wet Process Name Role Phone Yarely Kruger MD Primary Care Provider [phone]- [phone] Zeny Reddy MD Unavailable Tonya Parker NP Unavailable Encounter Details Date Type Department Care Team (Late st Contact Info) Description 03/14/2023 Orders Only [facility] MEDICINE [address] [place] [address] [phone] Yarely Kruger MD [address] [place], [place] [phone] Social History Tobacco Use Types Packs/Day Years [...] Time PHQ-9 Depression Total Score: 0 03/05/20 9:12 AM EDT documented as of this encounter Care Teams Miller Head Assistant Wet Process Relationship Specialty Start Date End Date Yarely Kruger MD [address] [place] [address] PCP - General Family Medicine 07/23/18 Zeny Reddy MD [address] [place] [address] Orthopaedic Surgery 06/11/24 Tonya Parker NP [address] [place] [address] Urology 08/26/24 Dr. Anselmo Mcadams MD [facility] [address] [facility] [address] Ophthalmology 08/15/24 documented as of this encounter
--- OUTSIDE RECORDS SUMMARY | 2024-09-04 15:07 | XMS_ITS | Encounter Summary ---
Author Organization [employer] Address [address] [facility] 7t [place] [address] Care Team Providers Care Calculating Machine Mechanic Name Role Phone Yarely Kruger MD Primary Care Provider [phone]- [phone] Zeny Reddy MD Unavailable [phone] Encounter Details Date Type Department Care Team [...] documented as of this encounter Care Teams Calculating Machine Mechanic Relationship Specialty Start Date End Date Yarely Kruger MD [address] [place] [address] PCP - General Family Medicine 07/23/18 Zeny Reddy MD [address] [place] [address] [place] [address] Orthopaedic Surgery 06/11/24 documented as of this encounter
--- OUTSIDE RECORDS SUMMARY | 2024-09-04 15:07 | XMS_ITS | Encounter Summary ---
Author Organization [employer] Address 75 [facility] 7t [place] [address] Care Team Providers Care Contract Preparer Name Role Phone Yarely Kruger MD Primary Care Provider [phone]- [phone] Zeny Reddy MD Unavailable [phone] Tonya Parker NP Unavailable Encounter Details Date Type Department Care Team (Late st Contact Info) Description 08/28/2022 Abstract [facility] MEDICINE [address] [place], [place] [phone] Yarely Kruger MD [address] [place], [place] [phone] Social History Tobacco Use Types Packs/Day Years [...] on filedocumented in this encounter Care Teams Contract Preparer Relationship Specialty Start Date End Date Yarely Kruger MD [address] [place] [address] PCP - General Family Medicine 07/23/18 Zeny Reddy MD [address] [place] [address] Orthopaedic Surgery 06/11/24 Tonya Parker NP [address] [place] [address] Urology 08/26/24 Dr. Anselmo Mcadams MD [facility] [address] [facility] [address] Ophthalmology 08/15/24 documented as of this encounter
--- OUTSIDE RECORDS SUMMARY | 2024-09-04 15:07 | XMS_ITS | Encounter Summary ---
Author Organization [employer] Address 75 [facility] 7t [place] [address] Care Team Providers Care Data Processing Supervisor Name Role Phone Yarely Kruger MD Primary Care Provider [phone]- [phone] Zeny Reddy MD Unavailable [phone] Reason for Visit * Reason Onset Date Comments Walk in appt request 08/15/2024 Encounter Details Date Type Department Care Team ([facility] st Contact Info) Description 08/15/2024 Telephone [facility] MEDICINE [address] [place], [place] [phone] Yarely Kruger MD [address] [place], [place] [phone] Walk in appt request Social History Tobacco [...] PM EST Pt walked in to the [employer] nurses desk . Pt requested a pre-op appointment for eye surgery on 09/05/24 at [facility] [place] . EKG / CBC at the discretion [...] documented as of this encounter Care Teams Data Processing Supervisor Relationship Specialty Start Date End Date Yarely Kruger MD [address] [place] [address] PCP - General Family Medicine 07/23/18 Zeny Reddy MD 10 [facility] [address] [place] [address] Orthopaedic Surgery 06/11/24 Dr. Anselmo Mcadams MD [facility] [address] [facility] [address] Ophthalmology 08/15/24 documented as of this encounter
--- OUTSIDE RECORDS SUMMARY | 2024-09-04 15:07 | XMS_ITS | Encounter Summary ---
Author Organization [employer] Address 75 [facility] 7t [place] [address] Care Team Providers Care Unix Systems Administrator Name Role Phone Yarely Kruger MD Primary Care Provider [phone]- [phone] Zeny Reddy MD Unavailable [phone] Encounter Details Date Type Department Care Team [...] documented as of this encounter Care Teams Unix Systems Administrator Relationship Specialty Start Date End Date Yarely Kruger MD [address] [place] [address] PCP - General Family Medicine 07/23/18 Zeny Reddy MD [address] [place] [address] Orthopaedic Surgery 06/11/24 Dr. Anselmo Mcadams MD [facility] [address] [facility] [address] Ophthalmology 08/15/24 documented as of this encounter
--- OUTSIDE RECORDS SUMMARY | 2024-09-04 15:07 | XMS_ITS | Encounter Summary ---
Author Organization [employer] Address 75 [facility] 7t [place] [address] Care Team Providers Care Scheduling Manager Name Role Phone Yarely Kruger MD Primary Care Provider [phone]- [phone] Zeny Reddy MD Unavailable [phone] Reason for Visit * Reason Onset Date Comments Pre-op Exam 08/21/2024 Encounter Details Date Type Department Care Team ([facility] st Contact Info) Description 08/21/2024 Telephone [facility] MEDICINE [address] [place], [place] [phone] Yarely Kruger MD [address] [place], [place] [phone] Pre-op Exam Social History Tobacco Use Types [...] in August. Had to LVM with the surgical garment assembler of Dr. Anselmo Mcadams withcall back number [...] documented as of this encounter Care Teams Scheduling Manager Relationship Specialty Start Date End Date Yarely Kruger MD [address] [place] [address] PCP - General Family Medicine 07/23/18 Zeny Reddy MD [address] [place] [address] Orthopaedic Surgery 06/11/24 Dr. Anselmo Mcadams MD [facility] [address] [place] [address] Ophthalmology 08/15/24 documented as of this encounter
--- OUTSIDE RECORDS SUMMARY | 2024-09-04 15:07 | XMS_ITS | Encounter Summary ---
Author Organization [employer] Address 75 [facility] 7t [place] [address] Care Team Providers Care Director Of Pharmacy Name Role Phone Yarely Kruger MD Primary Care Provider [phone] Zeny Reddy MD Unavailable [phone] Tonya Parker NP Unavailable Encounter Details Date Type Department Care Team (Late st Contact Info) Description 12/21/2023 Orders Only [facility] [address] [place], [place] [phone] Yarley Kruger MD [address] [place], [place] [phone] Acute cystitis without hematuria (Primary Dx) Social [...] the past 12 months, has t he [email or web address], gas, oil or water [employer] threatened to shut off services in your [...] EDT Narrative 01/15/2024 6:12 PM EDT ? [facility] ?[address] ?[place] [address] ?XRay Report ? Signed ? Patient: Adelaida Husain ?MR#: [id number] ?? [id number] ? : 1980 ?Acct:[id number] ? Age/Sex: 43 / F ?ADM Date: 01/15/24 ? Loc: HO.ED ? Attending Dr: ? Ordering Physician: Madeline Duran NP ?? Date of Service: 01/15/24 ?? Procedure(s): XR thoracic spine 2V ?? Accession Number(s): [id number] ? cc: Yarely Kruger MD; Renee,Madeline PAYROLL BOOKKEEPER ? EXAMINATION: ?? XR THORACOLUMBAR SPINE ? [...] 1807 ? DD/ 1703 ? TD/TT: ? Mechanical Insulator: LIZ ? Procedure Note Doncaitlynter, Image - 01/15/[address] [address] XRay Report Signed Patient: Adelaida Husain BMR#: [id number] : 1980Acct:[id number] Age/Sex: 43 / FADM Date: 01/15/24 Loc: HO.ED Attending Dr: Ordering Physician: Madeline Duran NP Date of Service: 01/15/24 Procedure(s): XR thoracic spine 2V Accession Number(s): [id number] cc: Yarely Kruger MD; Madeline Duran NP [...] in OV> 01/15/24 1807 DD/ 1703 TD/TT: Mechanical Insulator: LIZ [facility] External Provider IMG XR PROCEDURES Final Result documented in this encounter Visit Diagnoses Diagnosis Acute cystitis without hematuria- Primary documented in this encounter Additional Health Concerns Assessment Noted Time PHQ-9 Depression Total Score: 0 03/05/20 23 9:12 AM EDT documented as of this encounter Care Teams Director Of Pharmacy Relationship Specialty Start Date End Date Yarely Kruger MD [address] [place] [address] PCP - General Family Medicine 07/23/18 Zeny Reddy MD [address] [place] [address] Orthopaedic Surgery 06/11/24 Tonya Parker NP [address] [place] [address] Urology 08/26/24 Dr. Anselmo Mcadams MD [facility] [address] [facility] [address] Ophthalmology 08/15/24 documented as of this encounter
--- OUTSIDE RECORDS SUMMARY | 2024-09-04 15:07 | XMS_ITS | Encounter Summary ---
Author Organization [employer] Address [address] [place] [address] 7t [place] [address] Care Team Providers Care Shipping Supervisor Name Role Phone Yarely Kruger MD Primary Care Provider [phone]- [phone] Zeny Reddy MD Unavailable [phone] Reason for Visit * Reason Comments Pre-op Exam pre-op for eye surge ry 09/05/24 Encounter Details Date Type Department Care Team (Late st Contact Info) Description 08/20/2024 1:30 PM EST Office Visit [facility] MEDICINE 230 [place], [place] [phone] Yarely Kruger MD 230 [place], [place] [phone] Preop examination (Primary Dx); Dietary counseling; Exercise [...] MD Date of Procedure: on 09/05/24 at [facility] Type of Anesthesia: local [...] denies history of irregular heartbeat, unstable angina, LA within 1 month, severe congestive heart failure, high grade arrhythmia, or symptomatic valvular disease. Denies hx RODERICK, asthma. No history of alcohol withdrawal; not a regular, heavy drinker. Denies steroid exposure. Denies anticoagulation. Denies antiplatelet therapy. Chronic Medical Conditions: Patient Active Problem List Diagnosis Retinal vasculitis Solitary cyst of breast Systemic lupus erythematosus ([facility]/HCC) Other specified health status Epiretinal membrane Pseudophakia [...] as of this encounter Care Teams Shipping Supervisor Relationship Specialty Start Date End Date Yarely Kruger MD [address] [place] [address] PCP - General Family Medicine 07/23/18 Zeny Reddy MD [address] [place] [address] Orthopaedic Surgery 06/11/24 Dr. Anselmo Mcadams MD [facility] [address] [facility] [address] Ophthalmology 08/15/24 documented as of this encounter
--- OUTSIDE RECORDS SUMMARY | 2024-09-04 15:07 | XMS_ITS | Clinical Summary ---
Author Organization [employer] Address [address] [place] [address] 7t [place] [address] Care Team Providers Care Principal Automation Engineer Name Role Phone Yarely Kruger MD Primary Care Provider [phone]- [phone] Zeny Reddy MD Unavailable [phone] Tonya Parker NP Unavailable Allergies No known active allergies Medications cyclobenzaprin [...] mg by mouth Once per day. 12/14/19 24 025 Discontinued(Me d list cleanup (will not trigger notification to Pharmacy)) metroNIDAZOLE (Metrogel) 0.75 % vaginal gelIndications :Bacterial Vaginosis Insert one applicator into vagina at bedtime for 5 nights 45 g 12/20/19 24 025 Discontinued(Me d list cleanup (will not trigger notification to Pharmacy)) benzonatate (Tessalon Perles) 100 MG capsuleIndicat ions:Influenza A Take 1 capsule (100 mg) by mouth if needed in the morning, at noon, and at bedtime for cough for up to 7 days. Do not crush or chew. 20 capsule 08/09/19 025 Discontinued(Me d list cleanup (will [...] Overview (04/14/2024): Seen by urology, Jeremie Parker NP : US 12/03/23 BLADDER: Well distended and [...] 10:19 AM EDT): Seen by urology, Jeremie Parker PRIME MINISTER : US 12/03/23 BLADDER: Well distended and [...] every [address] Mcadams at [facility] in [place]. 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 She was seen on 08/15/[address] Mcadams Assessment & Plan (07/20/2023 9:00 AM EST): Followed every [address] Mcadams at [facility] in [place]. The patient has optic nerve pallor, vascular [...] every [address] Mcadams at [facility] in [place]. The patient has optic nerve pallor, vascular [...] routine opthalmic exam 2005. work up with shooter helper Dr. 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 Initially treated with methotrexate and IVIG. Failed MTX and Imuran. Previously failed tapering IV-IG below 20g in 2009. Stopped IVIG 01/2015 as no inflammation noted. Stopped prednisone oral 07/2018. Seen by Dr. Martinez Mcadams 07/28/2019 at [facility] [phone]. Inflammation and worsening vasculitis seen on exam [...] as Dr. Mcadams -Continue with Dr. Luis [facility] optometry last seen 11/2022 we scheduled her for visual field on 02/2023. 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 Discovered on routine opthalmic exam 2005. work up with shooter helper Dr. 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 Initially treated with methotrexate and IVIG. Failed MTX and Imuran. Previously failed tapering IV-IG below 20g in 2009. Stopped IVIG 01/2015 as no inflammation noted. Stopped prednisone oral 07/2018. Seen by Dr. Martinez Mcadams 07/28/2019 at [facility] [phone]. Inflammation and worsening vasculitis seen on exam [...] as Dr. Mcadams -Continue with Dr. Luis [facility] optometry last seen 11/2022 we scheduled her for visual field on 02/2023. 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 Discovered on routine opthalmic exam 2005. work up with shooter helper Dr. 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 Initially treated with methotrexate and IVIG. Failed MTX and Imuran. Previously failed tapering IV-IG below 20g in 2009. Stopped IVIG 01/2015 as no inflammation noted. Stopped prednisone oral 07/2018. Seen by Dr. Martinez Mcadams 07/28/2019 at [facility] [phone]. Inflammation and worsening vasculitis seen on exam [...] as Dr. Mcadams -Continue with Dr. Luis [facility] optometry last seen 11/2022 we scheduled her for visual field on 02/2023. 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 Discovered on routine opthalmic exam 2005. work up with shooter helper Dr. 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 Initially treated with methotrexate and IVIG. Failed MTX and Imuran. Previously failed tapering IV-IG below 20g in 2009. Stopped IVIG 01/2015 as no inflammation noted. Stopped prednisone oral 07/2018. Seen by Dr. Martinez Mcadams 07/28/2019 at [facility] [phone]. Inflammation and worsening vasculitis seen on exam [...] as Dr. Mcadams -Continue with Dr. Luis [facility] optometry last seen 11/2022 we scheduled her [...] Type Department Care Team Description 08/21/2024 Telephone [facility] MEDICINE [address] [place] [address] Yarely Kruger MD Pre-op Exam 08/20/2024 1:30 PM EST Office Visit [address] [address] Yarely Kruger MD Preop examination (Primary Dx); Dietary counseling; Exercise counseling; Systemic lupus erythematosus, unspecified SLE type, unspecified organ involvement status (CMS/HCC); Other specified health status 08/20/2024 Travel 08/19/[address] [address] Dyan Price [place] chartprep 08/15/[address] [address] Yarely Kruger MD Walk in appt request 08/09/2024 9:20 AM EST Office Visit [facility] [address] [place] [address] Gautam Mcdonald MD Influenza A; Acute cystitis without hematuria 08/09/2024 Travel 06/25/[address] [address] Yarely Kruger MD Referral from Last 3 [...] 9:29 AM EST 08/09/2024 1:46 PM EST Comment:[facility] LABS - 08/12/2024 7:57 AM [...] ORDER BONG Final Result Performing Organization Address [facility]/ZIP Co de Phone Number [facility] [address] [place] [address] [phone] * (ABNORMAL) POCT Urinalysis (08/09/2024 9:28 [...] Media Lot # [id number] Lot# Expiration Date 93 Urine 08/09/2024 9:28 AM EST us Gautam Mcdonald MD POINT OF CARE TEST ENTER/EDIT OR DERABLES Final Result * POCT Rapid Influenza B SPAIN ID NOW (08/09/2024 9:26 AM EST) Influenza B Negative Negative, Indeterminate [facility] QC Media Lot # [id number] [facility] Lot# Expiration Date 8626 [facility] Swab 08/09/2024 9:26 AM EST us Gautam Mcdonald MD POINT OF CARE TEST ENTER/EDIT OR DERABLES Edited Result - Final Performing Organization Address City/[facility]/ZIP Co de Phone Number [facility] [address] [place] [address] [phone] * (ABNORMAL) POCT Rapid Influenza A SPAIN ID NOW (08/09/2024 9:26 AM EST) Influenza A Positive( A) Negative, Indeterminate [facility] QC Media Lot # [id number] [facility] Lot# Expiration Date [facility] Swab 08/09/2024 9:26 AM EST Gautam Mcdonald MD POINT OF CARE TEST ENTER/EDIT OR DERABLES Final Result Performing Organization Address [facility]/ZIP Co de Phone Number [facility] [address] [place] [phone] * POCT Rapid Strep A SPAIN ID NOW (08/09/2024 9:26 AM EST) Pathologist [facility] Rapid Strep A Screen Negative Negative, None Detected QC Media Lot # [id number] Lot# Expiration Date 41,126 Swab 08/09/2024 9:26 AM EST Gautam Mcdonald MD POINT OF CARE TEST ENTER/EDIT OR DERABLES Final Result * POCT Rapid Covid-19 BinaxNOW (08/09/2024 9:26 AM EST) Rapid COVID Ag Negative [facility] QC Media Lot # [id number] [facility] Lot# Expiration Date [facility] Swab 08/09/2024 9:26 AM EST us Gautam Mcdonald MD POINT OF CARE TEST ENTER/EDIT OR DERABLES Final Result [facility] [address] [place] [phone] * BI Mammogram Screening Bilateral (08/30/2023) Anatomical Region Laterality Modality Breast Bilateral Mammography us Historical Provider MD MEYER BI PROCEDURES Final R esult * HIV-1/2 Antigen and Antibodies, Fourth Generation, with Reflexes (07/20/2023 11:16 AM EST) HIV AB/AG Nonreactive Nonreactive [facility] Comment:HIV-1 p24 Ag and/or HIV-1/HIV-2 Ab not detected.A test result that is nonreactive does not exclude thepossibility of exposure to or infection with HIV-1 and/orHIV-2. Nonreactive results in this assay for individualswith prior exposure to HIV-1 and/or HIV-2 may be due toantigen and antibody levels that are below the limit ofdetection of this assay.The [employer] HIV Ag/Ab Combo assay result andsupplemental assay results should be interpreted inconjunction with the patient's clinical presentation,history and other laboratory results. If the results areinconsistent with clinical evidence, additional testing issuggested to confirm the result. Blood Venous blood specimen / Unknown 07/20/2023 11:16 AM EST 07/20/2023 1:16 PM EST Yarely Kruger MD LAB BLOOD ORDERABLES Final Result [facility] [address] [place] [phone] * HPV mRNA E6/E7 w/Reflex to HPV Genotypes 16, 18/45 (07/20/2023 11:00 AM EST) HPV nRNA E6/E7 Not Detected Not Detected [facility] Comment:Methodology: Transcr iption-Mediated AmplificationThis assay detects E6/E7 viral messenger RNA (mRNA) from 14high-risk HPV types (16,18,31,33,35,39,45,51,52,56,58,59,66,68).Cervical sources are required for HPV testing.If a vaginal source from a patient who has had atotal hysterectomy with removal of cervix wassubmitted, please contact the testing laboratoryfor alternative testing options.For additional information, please refer tohttp://education.Publimind/faq/DTD705h5(This link if provided for information/educational purposes only.)THIS TEST WAS PERFORMED AT:[facility] [place] [phone] TOMPKINS MD HPV mRNA E6/E7 TNP [facility] HPV 16 RNA TNP [facility] HPV 18/45 RNA TNP [facility] 07/20/2023 11:0 0 AM EST 07/24/2023 8:00 AM EST us Yarely Kruger MD LAB CYTOLOGY ORDERABLES Fi nal Result [facility] [address] [place] [address] [phone] * Pap Smear (07/20/2023 11:00 AM EST) 07/20/2023 11:0 0 AM EST 07/24/2023 8:00 AM EST Narrative [facility] - 07/26/2023 12:54 PM EST ----- ------- Name: Adelaida Husain ? Age/Sex: 43/F ? : 1980 Unit#: [id number] ?? Attend Dr: Yarely Kruger MD ?Re07/20/23 ?Status: DEP REF ? Location: [facility] ? Disch: ? ----- ------- SPEC : [id number] ? RECD: 07/24/23 ? STATUS: ??SOUT ? REQ NUM: [id number] ? SYDNIE: 07/20/23 ? SUBM DR: Yarely [...] 66, 68) ?? HPV testing performed by [employer], [place], [place]. ??See reference laboratory ?? portion of the EMR for entire report. ?Clinical Information LMP: Unknown date Previous PAP test: 2018, NILM, HPV negative ? Material Received ?? ThinPrep-Cervical ----- ------- Signed (signature on file) ESTEE Garcia (ASCP) 07/26/23 1254 ? ----- ------- ? END OF REPORT ? Yarely Kruger MD LAB CYTOLOGY ORDERABLES Fi nal Result [facility] [address] [place] [phone] * HM Hepatitis C Antibody (04/19/2018) Hepatitis C Antibody Nonreactive Blood Historical Provider HEALTH MAINTENANCE Final Result from Last 3 Months or Most Recently Relevant to Health Maintenance Insurance [facility] [id number] ARBELLA Advance Directives Documents on File Type Date Recorded Patient Hearing Health Technician Expl anation Advance Directives and Living Will 12/20/2023 Health Care Proxy 12/20/23 Care Teams Principal Automation Engineer Relationship Specialty Start Date End Date Saskia, MD Yarely [address] [place] [address] PCP - General Family Medicine 07/23/18 Zeny Reddy MD [address] [place] [address] Orthopaedic Surgery 06/11/24 Tonya Parker NP [address] [place] [address] Urology 08/26/24 Dr. Anselmo Mcadams MD [facility] [address] [facility] [address] Ophthalmology 08/15/24
--- OUTSIDE RECORDS SUMMARY | 2024-09-04 15:07 | XMS_ITS | Encounter Summary ---
Author Organization [employer] Address 75 [facility] 7t [place] [address] Care Team Providers Care Workers Compensation Attorney Name Role Phone Yarely Kruger MD Primary Care Provider +1- [phone] Zeny Reddy MD Unavailable Tonya Parker NP Unavailable Encounter Details Date Type Department Care Team (Late st Contact Info) Description 05/09/2023 Abstract [facility] MED[facility]INE 230 [place], [place] [phone] Yarely rKuger MD 230 [place], [place] [phone] Social History Tobacco Use Types Packs/Day Years [...] documented as of this encounter Care Teams Workers Compensation Attorney Relationship Specialty Start Date End Date Yarely Kruger MD [address] [place] [address] PCP - General Family Medicine 07/23/18 Zeny Reddy MD [address] [place] [address] Orthopaedic Surgery 06/11/24 Tonya Parker NP [address] [place] [address] Urology 08/26/24 Dr. Anselmo Mcadams MD [facility] [address] [facility] [address] Ophthalmology 08/15/24 documented as of this encounter
--- OUTSIDE RECORDS SUMMARY | 2024-09-04 15:07 | XMS_ITS | Encounter Summary ---
Author Organization [employer] Address 75 [facility] 7t [place] [address] Care Team Providers Care Documentation Writer Name Role Phone [place], Yarely JUAREZ Primary Care Provider [phone]- [phone] Zeny Reddy MD Unavailable [phone] Tonya Parker NP Unavailable Encounter Details Date Type Department Care Team (Late st Contact Info) Description 09/13/2022 Orders Only [facility] MED[facility]INE 230 [place], [place] [phone] Nevin Serrano MD 230 [place], [place] [phone] Vision problem (Primary Dx) Social History Tobacco [...] EDT 02/21/2023 12:13 PM EDT Comment:[facility]ACC Narrative [facility] - 02/23/2023 8:33 AM EDT Escherichia coli Quant > 100,000 cfu/mL Escherichia coli: Ampicillin 4(S) Escherichia coli: Ceftriaxone <=0.25(S) Escherichia coli: Gentamicin <=1(S) Escherichia coli: Levofloxacin <=0.12(S) Escherichia coli: Nitrofurantoin <=16(S) Escherichia coli: Trimethoprim/Sulfamethoxazole <=20(S) Specimen Source: Urine clean catch Gautam Mcdonald MD LAB MICROBIOLOGY - GENERAL ORDER BONG Final Result Performing Organization Address [facility] Co de Phone Number [facility] [address] [place] [phone] * (ABNORMAL) Bacterial Vaginosis (02/20/2023 12:00 AM EDT) Trichomonas DNA Probe Negative Negative [facility] Gardnerella DNA Probe Positive(A) Negative [facility] Mary DNA Probe Positive(A) Negative [facility] 02/20/2023 02/20/2023 Gautam Mcdonald MD LAB MICROBIOLOGY - GENERAL ORDER BONG Final Result Performing Organization Address [facility] de Phone Number [facility] [address] [place] [phone] documented in this encounter Visit Diagnoses Diagnosis Vision problem- Primary Problems with sight documented in this encounter Care Teams Documentation Writer Relationship Specialty Start Date End Date [place], MD Yarely [address] [place] [address] PCP - General Family Medicine 07/23/18 Zeny Reddy MD [address] [place] [address] Orthopaedic Surgery 06/11/24 Tonya Parker NP [address] [place] [address] Urology 08/26/24 Dr. Anselmo Mcadams MD [facility] [address] [facility] [address] Ophthalmology 08/15/24 documented as of this encounter
--- OUTSIDE RECORDS SUMMARY | 2024-09-04 15:07 | XMS_ITS | Encounter Summary ---
Author Organization [employer] Address 75 [facility] 7t [place] [address] Care Team Providers Care Bond Runner Name Role Phone Yarely Kruger MD Primary Care Provider [phone]- [phone] Zeny Reddy MD Unavailable [phone] Reason for Visit * Reason Onset Date Comments chartprep 08/19/2024 Encounter Details Date Type Department Care Team (Late st Contact Info) Description 08/19/2024 Telephone [facility]INE 230 [place] [address] Dyan Price [place] chartprep Social History Tobacco [...] documented as of this encounter Care Teams Bond Runner Relationship Specialty Start Date End Date Yarely Kruger MD 230 [place] [address] PCP - General Family Medicine 07/23/18 Zeny Reddy MD [address] [place] [address] Orthopaedic Surgery 06/11/24 Dr. Anselmo Mcadams MD [facility] [address] [facility] [address] Ophthalmology 08/15/24 documented as of this encounter
--- OUTSIDE RECORDS SUMMARY | 2024-09-04 15:07 | XMS_ITS | Encounter Summary ---
Author Organization [employer] Address [address] [facility] 7t [place] [address] Care Team Providers Care Structural Drafter Name Role Phone Yarely Kruger MD Primary Care Provider [phone]- [phone] Zeny Reddy MD Unavailable [phone] Reason for Visit * Reason Comments Cough Encounter Details Date Type Department Care Team ([facility] Contact Info) Description 08/09/2024 9:20 AM EST Office Visit [facility] [address] [place] [phone] Gautam Mcdonald MD 230 [place] [address] Influenza A; Acute cystitis without hematuria Social [...] Negative Final QC Media Lot # 08/09/2024 [id number] Final Lot# Expiration Date 08/09/2024 8,226 Final Influenza A 08/09/2024 Positive (A) Negative, Indeterminate Final QC Media Lot # 08/09/2024 [id number] Final Lot# Expiration Date 08/09/2024 8,226 Final Influenza B 08/09/2024 Negative Negative, Indeterminate Final QC Media Lot # 08/09/2024 [id number] Final Lot# Expiration Date 08/09/2024 8,626 Final Rapid Strep A Screen 08/09/2024 Negative Negative, None Detected Final QC Media Lot # 08/09/2024 [id number] Final Lot# Expiration Date 08/09/2024 41,126 Final [...] 9:29 AM EST 08/09/2024 1:46 PM EST Comment:[facility] Narrative [facility] - 08/12/2024 7:57 AM EST Escherichia coli Quant > 100,000 cfu/mL Escherichia coli: Ampicillin >=32(R) Escherichia coli: Cefazolin (Urine) 2(S) Escherichia coli: Cefepime <=0.12(S) Escherichia coli: Ceftriaxone <=0.25(S) Escherichia coli: Ciprofloxacin <=0.06(S) Escherichia coli: Gentamicin <=1(S) Escherichia coli: Nitrofurantoin <=16(S) Escherichia coli: Trimethoprim/Sulfamethoxazole <=20(S) Specimen Source: Urine clean catch us Gautam Mcdonald MD LAB MICROBIOLOGY - GENERAL ORDER BONG Final Result [facility] [address] [place] [phone] * (ABNORMAL) POCT Urinalysis (08/09/2024 9:28 AM EST) Pathologist [facility] Color, UA Yellow Clarity, UA Clear Glucose, [...] SPAIN ID NOW (08/09/2024 9:26 AM EST) [facility] Rapid Strep A Screen Negative Negative, None Detected QC Media Lot # [id number] Lot# Expiration Date 41,126 Swab 08/09/2024 9:26 AM EST us Gautam Mcdonald MD POINT OF CARE TEST ENTER/EDIT OR DERABLES Final Result * POCT Rapid Influenza B SPAIN ID NOW (08/09/2024 9:26 AM EST) [facility] Influenza B Negative Negative, Indeterminate [facility] QC Media Lot # [id number] [facility] Lot# Expiration Date 8,626 [facility] Swab 08/09/2024 9:26 AM EST us Gautam Mcdonald MD POINT OF CARE TEST ENTER/EDIT OR DERABLES Edited Result - Final [facility] [address] [place] [phone] * (ABNORMAL) POCT Rapid Influenza A SPAIN ID NOW (08/09/2024 9:26 AM EST) [facility] Influenza A Positive( A) Negative, Indeterminate [facility] QC Media Lot # [id number] [facility] Lot# Expiration Date [facility] Swab 08/09/2024 9:26 AM EST Gautam Mcdonald MD POINT OF CARE TEST ENTER/EDIT OR DERABLES Final Result Performing Organization Address [facility]/ZIP Co de Phone Number [facility] [address] [place] [address] [phone] * POCT Rapid Covid-19 BinaxNOW (08/09/2024 9:26 AM EST) Rapid COVID Ag Negative [facility] QC Media Lot # [id number] [facility] Lot# Expiration Date [facility] Swab 08/09/2024 9:26 AM EST Gautam Mcdonald MD POINT OF CARE TEST ENTER/EDIT OR DERABLES Final Result Performing Organization Address [facility] Co de Phone Number [facility] [address] [place] [address] [phone] documented in this encounter Visit Diagnoses Diagnosis Influenza A Influenza with other respiratory manifestations Acute cystitis without hematuria documented in this encounter Additional Health Concerns Assessment Noted Time PHQ-9 Depression Total Score: 0 03/05/20 23 9:12 AM EDT documented as of this encounter Care Teams Structural Drafter Relationship Specialty Start Date End Date Yarely Kruger MD [address] [place] [address] PCP - General Family Medicine 07/23/18 Zeny Reddy MD [address] [place] [address] Orthopaedic Surgery 06/11/24 documented as of this encounter
--- OUTSIDE RECORDS SUMMARY | 2024-09-04 15:07 | XMS_ITS | Encounter Summary ---
Author Organization [employer] Address [address] [place] [address] 7t [place] [address] Care Team Providers Care Dot Compliance Manager Name Role Phone Yarely Kruger MD Primary Care Provider [phone]- [phone] Zeny Reddy MD Unavailable [phone] Tonya Parker NP Unavailable Reason for Visit * Reason Onset Date Comments Referral 09/08/2022 Encounter Details Date Type Department Care Team (Late st Contact Info) Description 09/08/2022 Telephone [facility] MED[facility]INE 230 [place], [place] [phone] Yarely Kruger MD 230 [place], [place] [phone] Referral Social History Tobacco Use Types Packs/Day [...] an referral to be seen at [facility] Please contact pt at [phone] documented in this encounter Plan of Treatment Not on file documented as of this encounter Visit Diagnoses Not on filedocumented in this encounter Care Teams Dot Compliance Manager Relationship Specialty Start Date End Date Yarely Kruger MD [address] [place] [address] PCP - General Family Medicine 07/23/18 Zeny Reddy MD [address] [place] [address] Orthopaedic Surgery 06/11/24 Tonya Parker NP [address] [place] [address] Urology 08/26/24 Dr. Anselmo Mcadams MD [facility] [address] [facility] [address] Ophthalmology 08/15/24 documented as of this encounter
== END 2024-09-04 15:04 | disposition home or self-care (01) ==
LOC: HO.MAMMO 15:03
PROVIDERS: PCP Family Medicine; Visit Provider Family Medicine
DX: Z12.31 Encounter for screening mammogram for malignant neoplasm of breast (principal)
CPT/HCPCS: 77063; 77067

== ENCOUNTER → 2024-09-04 15:15 | Outpatient (BNV) | payer MEDICAID, SELFPAY | PROVIDERS: PCP Family Medicine; Visit Provider Internal Medicine | DX: Z12.31 Encounter for screening mammogram for malignant neoplasm of breast (principal) | CPT/HCPCS: 77063; 77067 ==

== ENCOUNTER 2024-11-05 12:34 | Outpatient (AMB) | payer MEDICAID, SELFPAY ==
[2024-11-05 12:53] VITALS: BMI 26.7
--- NOTE | 2024-11-05 12:53 | A.OFFVIS_ITS ---
Vital Signs 11/05/24 12:53 Height 4 ft 11 in Weight 132 lb BMI 26.7 Intake Visit Reasons: Preop LT CTR 11/11/24 AR Intake Note: Adelaida 44 yr old female presents today for her pre op visit for her left hand CTR that is scheduled for 11/11/[address] Reddy. Consents have been signed and all questions have been answered. Allergies No Known Allergies Allergy (Verified 11/05/24 12:57) HPI HPI Preop LT CTR 11/11/24 AR: Details: Adelaida is a 44 year old right hand dominant woman who returns to discuss her left carpal tunnel syndrome. She complains of numbness in the median nerve distribution. Symptoms intermittent, but daily, worse at night She has a Hx of a right carpal tunnel release, DOS: 05/29/24. She says she is doing well and her sensation is now normal on her right side. [facility] Medical History Lupus Surgical History History of abdominoplasty History of breast augmentation (2018) Social History Alcohol intake: current Alcohol intake frequency: holidays/special occasions only Alcohol type: hard liquor Patient Tobacco Use Status: Never used Tobacco Current occupation: right handed Review of Systems Const All systems reviewed & are unremarkable except as noted in HPI and below Physical Exam Vital Signs: BMI result Body Mass Index 26.7 Const General: no acute distress and alert Orientation/consciousness: patient oriented x3 Neuro General: patient oriented x3 Extrem Other: Evaluation of Left Upper Extremity: The patient is alert, oriented, and in no acute distress Neuro: Median, Ulnar, Radial nerves motor and sensory intact and sensation is normal to the tips of all digits No thenar or intrinsic wasting Good APB muscle belly firing and good finger cross Vascular: Cap refill brisk ROM: She can make a fist and extend all her digits Nerve Conduction Study: IMPRESSION: Moderately severe bilateral median neuropathy across carpal tunnel. Eb Haq MD 09/13/2023 Psych Appearance: grossly normal Affect: normal affect Attitude: cooperative Assessment & Plan Assessment & Plan (1) Carpal tunnel syndrome of left wrist: Code(s): G56.02 - Carpal tunnel syndrome, left upper limb Category: Medical Plan Assessment & Plan: 1. Left carpal tunnel syndrome, moderate-severe Symptoms intermittent, but daily, worse at night I educated her about this condition I discussed operative and non-operative treatment options The patient would like to proceed with surgery The risks and benefits of operative treatment were discussed with the patient and the patient wishes to proceed with surgery. These risks include, but are not limited to risk of damage to blood vessels, nerves, tendons, infection, recurrence, incomplete relief of preoperative symptoms, persistent pain, possible need for further surgery and the risks associated with regional blocks and anesthesia. The plan is to take the patient to the operating room sometime on 11/11/24 for the following procedures: 1. Left carpal tunnel release, under local All of the preoperative paperwork including the consent was reviewed today. All the patient's questions were answered. The patient understands that they will be contacted by our production planner scheduler soon to schedule this procedure She denies Diabetes, blood thinners, asthma, heart, lung, kidney issues 2. Right carpal tunnel syndrome, S/P release DOS: 05/29/24 Pre-operative symptoms intermittent, but daily, worse at night Now with normal sensation Scribed for Zeny Reddy MD by Hermann Umaña medical supervisor, on 11/05/24 at 1:30 PM, EST. Scribe Plan - Not visible on output: Scribed for Zeny Reddy MD by Hermann Umaña medical supervisor, on [ ] at [ ], EST. Coding Level of Care Code Est Pt Level 4 (71127) Diagnoses Carpal tunnel syndrome of left wrist G56.02
--- OUTSIDE RECORDS SUMMARY | 2024-11-05 14:49 | XMS_ITS | Encounter Summary ---
Author Organization [employer] Address [address] [facility] 7t [place] [address] Care Team Providers Care Data Center Project Manager Name Role Phone Yarely Kruger MD Primary Care Provider [phone] Zeny Reddy MD Unavailable [phone] Tonya Parker NP Unavailable Encounter Details Date Type Department Care Team (Late st Contact Info) Description 12/21/2023 Orders Only [facility] MEDICINE [address] [place], [place] [phone] Yarely Kruger MD [address] [place], [place] [phone] Acute cystitis without hematuria (Primary Dx) Social [...] the past 12 months, has t he [employer] gas, oil or water [employer] threatened to shut off services in your [...] EDT Narrative 01/15/2024 6:12 PM EDT ? [facility] ?[address] ?[place] [address] ?XRay Report ? Signed ? Patient: Adelaida Husain ?MR#: [id number] ?? [id number] ? : 1980 ?Acct:[id number] ? Age/Sex: 43 / F ?ADM Date: 01/15/24 ? Loc: HO.ED ? Attending Dr: ? Ordering Physician: Madeline Duran NP ?? Date of Service: 01/15/24 ?? Procedure(s): XR thoracic spine 2V ?? Accession Number(s): [id number] ? cc: Yarely Kruger MD; Renee,Madeline TURRET PUNCH OPERATOR ? EXAMINATION: ?? XR THORACOLUMBAR SPINE ? [...] 1807 ? DD/ 1703 ? TD/TT: ? Possum Trapper: LIZ ? Procedure Note Doncaitlynter, Image - 01/15/[address] [address] XRay Report Signed Patient: Adelaida Husain BMR#: [id number] : 1980Acct:[id number] Age/Sex: 43 / FADM Date: 01/15/24 Loc: HO.ED Attending Dr: Ordering Physician: Madeline Duran NP Date of Service: 01/15/24 Procedure(s): XR thoracic spine 2V Accession Number(s): [id number] cc: Yarely Kruger MD; Madeline Duran NP [...] in OV> 01/15/24 1807 DD/ 1703 TD/TT: Possum Trapper: LIZ [facility] External Provider IMG XR PROCEDURES Final Result documented in this encounter Visit Diagnoses Diagnosis Acute cystitis without hematuria- Primary documented in this encounter Additional Health Concerns Assessment Noted Time PHQ-9 Depression Total Score: 0 03/05/20 23 9:12 AM EDT documented as of this encounter Care Teams Data Center Project Manager Relationship Specialty Start Date End Date Yarely Kruger MD [address] [place] [address] PCP - General Family Medicine 07/23/18 Zeny Reddy MD [address] [place] [address] Orthopaedic Surgery 06/11/24 Tonya Parker NP [address] [place] [address] Urology 08/26/24 Dr. Anselmo Mcadams MD [facility] [address] [facility] [address] Ophthalmology 08/15/24 documented as of this encounter
--- OUTSIDE RECORDS SUMMARY | 2024-11-05 14:50 | XMS_ITS | Encounter Summary ---
Author Organization [employer] Address [address] [facility] 7t [place] [address] Care Team Providers Care Assistant Professor Of Biochemistry Name Role Phone Alfalfa, Yarely JUAREZ Primary Care Provider [phone] Zeny Reddy MD Unavailable [phone] Tonya Parker NP Unavailable Encounter Details Date Type Department Care Team (Late st Contact Info) Description 09/13/2022 Orders Only [facility] MED[facility]INE [address] [place], [place] [phone] Nevin Serrano MD [address] [place], [place] [phone] Vision problem (Primary Dx) Social History Tobacco [...] EDT 02/21/2023 12:13 PM EDT Comment:[facility]ACC Narrative [facility] - 02/23/2023 8:33 AM EDT Escherichia coli Quant > 100,000 cfu/mL Escherichia coli: Ampicillin 4(S) Escherichia coli: Ceftriaxone <=0.25(S) Escherichia coli: Gentamicin <=1(S) Escherichia coli: Levofloxacin <=0.12(S) Escherichia coli: Nitrofurantoin <=16(S) Escherichia coli: Trimethoprim/Sulfamethoxazole <=20(S) Specimen Source: Urine clean catch Gautam Mcdonald MD LAB MICROBIOLOGY - GENERAL ORDER BONG Final Result Performing Organization Address [facility] Co de Phone Number [facility] [address] [place] [phone] * (ABNORMAL) Bacterial Vaginosis (02/20/2023 12:00 AM EDT) Trichomonas DNA Probe Negative Negative [facility] Gardnerella DNA Probe Positive(A) Negative [facility] Mary DNA Probe Positive(A) Negative [facility] 02/20/2023 02/20/2023 Gautam Mcdonald MD LAB MICROBIOLOGY - GENERAL ORDER BONG Final Result Performing Organization Address [facility] de Phone Number [facility] [address] [place] [phone] documented in this encounter Visit Diagnoses Diagnosis Vision problem- Primary Problems with sight documented in this encounter Care Teams Assistant Professor Of Biochemistry Relationship Specialty Start Date End Date Saskia, MD Yarely [address] [place] [address] PCP - General Family Medicine 07/23/18 Zeny Reddy MD [address] [place] [address] Orthopaedic Surgery 06/11/24 Tonya Parker NP [address] [place] [address] Urology 08/26/24 Dr. Anselmo Mcadams MD [facility] [address] [facility] [address] Ophthalmology 08/15/24 documented as of this encounter
--- OUTSIDE RECORDS SUMMARY | 2024-11-05 14:50 | XMS_ITS | Encounter Summary ---
Author Organization [employer] Address [address] [place] [address] 7t [place] [address] Care Team Providers Care Field Service Manager Name Role Phone Yarely Kruger MD Primary Care Provider [phone] Zeny Reddy MD Unavailable [phone] Tonya Parker NP Unavailable Encounter Details Date Type Department Care Team (Late st Contact Info) Description 03/14/2023 Orders Only [facility] MEDICINE [address] [place] [phone] Yarely Kruger MD [address] [place], [place] [phone] Social History Tobacco Use Types Packs/Day Years [...] documented as of this encounter Care Teams Field Service Manager Relationship Specialty Start Date End Date Yarely Kruger MD [address] [place] [address] PCP - General Family Medicine 07/23/18 Zeny Reddy MD [address] [place] [address] Orthopaedic Surgery 06/11/24 Tonya Parker NP [address] [place] [address] Urology 08/26/24 Dr. Anselmo Mcadams MD [facility] [address] [facility] [address] Ophthalmology 08/15/24 documented as of this encounter
--- OUTSIDE RECORDS SUMMARY | 2024-11-05 14:50 | XMS_ITS | Encounter Summary ---
Author Organization [employer] Address [address] [place] [address] 7t [place] [address] Care Team Providers Care Registrar [employer] Name Role Phone Yarely Kruger MD Primary Care Provider [phone] Zeny Reddy MD Unavailable [phone] Tonya Parker NP Unavailable Reason for Visit * Reason Onset Date Comments Referral 09/08/2022 Encounter Details Date Type Department Care Team (Late st Contact Info) Description 09/08/2022 Telephone [facility] MEDICINE [address] [place], [place] [phone] Yarely Kruger MD [address] [place], [place] [phone] Referral Social History Tobacco Use Types Packs/Day [...] an referral to be seen at the [facility] Please contact pt at [phone] documented in this encounter Plan of Treatment Not on file documented as of this encounter Visit Diagnoses Not on filedocumented in this encounter Care Teams Registrar [employer] Relationship Specialty Start Date End Date Yarely Kruger MD [address] [place] [address] PCP - General Family Medicine 07/23/18 Zeny Reddy MD [address] [place] [address] Orthopaedic Surgery 06/11/24 Tonya Parker NP [address] [facility] [address] [place] [address] Urology 08/26/24 Dr. Anselmo Mcadams MD [facility] [address] [facility] [address] Ophthalmology 08/15/24 documented as of this encounter
--- OUTSIDE RECORDS SUMMARY | 2024-11-05 14:50 | XMS_ITS | Clinical Summary ---
Author Organization [employer] Address [address] [place] [address] 7[address] [place] [address] Care Team Providers Care Vice President Quality Name Role Phone Yarely Kruger MD Primary Care Provider [phone] Zeny Reddy MD Unavailable [phone] Tonya Parker NP Unavailable Allergies No known active allergies Medications No known medications Active Problems Problem Noted Date Diagnosed Date [...] including nutrition stratgeies and phsycial activity recommendations. Carpal tunnel syndrome of left wrist 07/20/2023 Overview (11/05/2024): NCS 09/13/23 :Moderately severe bilateral median neuropathy across carpal tunnel. -S/p right carpal tunnel release 05/29/24 -left hand CTR that is scheduled for 11/11/[address] Reddy Assessment & Plan (07/20/2023 10:47 AM EST): Referral to nerve conductive study 07/20/2023 Urinary incontinence 07/20/2023 Overview (04/14/2024): Seen by urologyJeremie, EMBOSSER OPERATOR : US 12/03/23 BLADDER: Well distended and [...] Plan (12/20/2023 10:19 AM EDT): Seen by urologyJeremie EMBOSSER OPERATOR : 12/03/23 BLADDER: Well distended and normal. Bilateral [...] every [address] Mcadams at [facility] in [place]. 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 She was seen on 08/15/[address] Mcadams Assessment & Plan (07/20/2023 9:00 AM EST): Followed every [address] Mcadams at [facility] in [place]. The patient has optic nerve pallor, vascular [...] every [address] Mcadams at [facility] in [place]. The patient has optic nerve pallor, vascular [...] routine opthalmic exam 2005. work up with tar kettle runner Dr. 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 Initially treated with methotrexate and IVIG. Failed MTX and Imuran. Previously failed tapering IV-IG below 20g in 2009. Stopped IVIG 01/2015 as no inflammation noted. Stopped prednisone oral 07/2018. Seen by Dr. Martinez Mcadams 07/28/2019 at [facility] [phone]. Inflammation and worsening vasculitis seen on exam [...] as Dr. Mcadams -Continue with Dr. Luis [facility] optometry last seen 11/2022 we scheduled her for visual field on 02/2023. 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 Discovered on routine opthalmic exam 2005. work up with tar kettle runner Dr. 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 Initially treated with methotrexate and IVIG. Failed MTX and Imuran. Previously failed tapering IV-IG below 20g in 2009. Stopped IVIG 01/2015 as no inflammation noted. Stopped prednisone oral 07/2018. Seen by Dr. Martinez Mcadams 07/28/2019 at [facility] [phone]. Inflammation and worsening vasculitis seen on exam [...] as Dr. Mcadams -Continue with Dr. Luis [facility] optometry last seen 11/2022 we scheduled her for visual field on 02/2023. 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 Discovered on routine opthalmic exam 2005. work up with tar kettle runner Dr. 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 Initially treated with methotrexate and IVIG. Failed MTX and Imuran. Previously failed tapering IV-IG below 20g in 2009. Stopped IVIG 01/2015 as no inflammation noted. Stopped prednisone oral 07/2018. Seen by Dr. Martinez Mcadams 07/28/2019 at [facility] [phone]. Inflammation and worsening vasculitis seen on exam [...] as Dr. Mcadams -Continue with Dr. Luis [facility] optometry last seen 11/2022 we scheduled her for visual field on 02/2023. 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 Discovered on routine opthalmic exam 2005. work up with tar kettle runner Dr. 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 Initially treated with methotrexate and IVIG. Failed MTX and Imuran. Previously failed tapering IV-IG below 20g in 2009. Stopped IVIG 01/2015 as no inflammation noted. Stopped prednisone oral 07/2018. Seen by Dr. Martinez Mcadams 07/28/2019 at [facility] [phone]. Inflammation and worsening vasculitis seen on exam [...] as Dr. Mcadams -Continue with Dr. Luis [facility] optometry last seen 11/2022 we scheduled her [...] Metronidazole 0.75% gel x 5 nights 12/20/23 Posterior knee pain, right 07/20/2023 0 08/20/2024 [...] Encounters Date Type Department Care Team Description 10/03/2024 Population [facility] Risk Score [facility] (C3) Department [address] [address] Provider, Population Health Generic 09/04/2024 Orders Only [facility] [address] [place] [address] Yarely Kruger MD 08/21/[address] [address] Yarely Kruger MD Pre-op Exam 08/20/2024 1:30 PM EST Office Visit [address] [address] Yarely Kruger MD Preop examination (Primary Dx); Dietary counseling; Exercise counseling; Systemic lupus erythematosus, unspecified SLE type, unspecified organ involvement status (CMS/[facility]); Other specified health status 08/20/2024 Travel 08/19/[address] [address] Dyan Price MA chartprep 08/15/[address] [address] Yarely Kruger MD Walk in appt request 08/09/2024 9:20 AM EST Office Visit [facility] [address] [place] [address] Gautam Mcdonald MD Influenza A; Acute cystitis without hematuria 08/09/2024 Travel from Last 3 Months Immunizations Name Administration [...] Tobacco Screening 08/20/2025 08/20/2024 Mammogram 09/04/2026 09/04/2024, 0202/2024, 08/30/2023, Additional history exists Cervical Cancer Screening [...] EST Narrative 09/13/2024 9:49 AM EST ? [facility] ? [address] ?[place] [address] ? Mammography Report ? Signed ? Patient: Rodrigue,Adelaida B ?MR#: [id number] ?? [id number] ? : 1980 ?Acct:[id number] ? Age/Sex: 44 / F ?ADM Date: 09/04/ ? Loc: HO.MAMMO ? Attending Dr: Yarely Kruger MD ? Ordering Physician: Yarely Kruger MD ?Results: 2B ?? enign Findings ? Date of Service: 09/04/ ?Follow Up: 1 Year From Orig ?? inal Mammogram ? Procedure(s): MM tomosynthesis screen imp BI ?? Accession Number(s): [id number] ? cc: Yarely Kruger MD ? EXAMINATION: [...] ??Shira Nice DO ??09/13/2024 09:46 AM EST ? Dictated By: ?Shira Nice DO ? Signed By: ?<Electronically signed by Shira Nice, DO in OV> ? 09/13/24 0946 ? DD/ 1515 ? TD/TT: 09/04/24 1530 ? Meat Cutting Block Repairer: ? Procedure Note Joey, Image - 09/13/2024 [facility] [address] [place] [address] Mammography Report Signed Patient: Adelaida Husain BMR#: [id number] : 1980Acct:[id number] Age/Sex: 44 / FADM Date: 09/04/24 Loc: HO.MAMMO Attending Dr: Yarely Kruger MD Ordering Physician: Yarely Kruger MDResults: 2B enign Findings Date of Service: 09/04/24Follow Up: 1 Year From Orig inal Mammogram Procedure(s): MM tomosynthesis screen imp BI Accession Number(s): [id number] cc: Yarely Kruger MD EXAMINATION: MM SCREENING [...] 09/13/24 0946 DD/ 1515 TD/TT: 09/04/24 1530 Meat Cutting Block Repairer: Yarely Kruger MD [facility] BI PROCEDURES Edited R esult - Final * Culture, Urine, Routine (08/09/2024 9:29 AM EST) Urine Urine specimen obtained by clean catch procedure / Unknown 08/09/2024 9:29 AM EST 08/09/2024 1:46 PM EST Comment:[facility] - 08/12/2024 7:57 AM [...] ORDER BONG Final Result Performing Organization Address [facility]/ZIP Co de Phone Number [facility] [address] [place] [phone] * (ABNORMAL) POCT Urinalysis (08/09/2024 9:28 [...] AM EST) Influenza B Negative Negative, Indeterminate [facility] QC Media Lot # [id number] [facility] Lot# Expiration Date 626 [facility] Swab 08/09/2024 9:26 AM EST Gautam Mcdonald MD POINT OF CARE TEST ENTER/EDIT OR DERABLES Edited Result - Final Performing Organization Address City/[facility]/ZIP Co de Phone Number [facility] [address] [place] [phone] * (ABNORMAL) POCT Rapid Influenza A [place] ID NOW (08/09/2024 9:26 AM EST) Influenza A Positive( A) Negative, Indeterminate [facility] QC Media Lot # [id number] [facility] Lot# Expiration Date 8 [facility] Swab 08/09/2024 9:26 AM EST us Gautam Mcdonald MD POINT OF CARE TEST ENTER/EDIT OR DERABLES Final Result Performing Organization Address [facility] Co de Phone Number [facility] [address] [place] [phone] * POCT Rapid Strep A [place] ID NOW (08/09/2024 9:26 AM EST) [facility] Rapid Strep A Screen Negative Negative, None Detected QC Media Lot # [id number] Lot# Expiration Date 41,126 Swab 08/09/2024 9:26 AM EST Gautam Mcdonald MD POINT OF CARE TEST ENTER/EDIT OR DERABLES Final Result * POCT Rapid Covid-19 BinaxNOW (08/09/2024 9:26 AM EST) [facility] Rapid COVID Ag Negative [facility] QC Media Lot # [id number] [facility] Lot# Expiration Date [facility] Swab 08/09/2024 9:26 AM EST us Gautam Mcdonald MD POINT OF CARE TEST ENTER/EDIT OR DERABLES Final Result Performing Organization Address [facility] Co de Phone Number [facility] [address] [place] [phone] * HIV-1/2 Antigen and Antibodies, Fourth Generation, with Reflexes (07/20/2023 11:16 AM EST) [facility] HIV AB/AG Nonreactive Nonreactive [facility] Comment:HIV-1 p24 Ag and/or HIV-1/HIV-2 Ab not detected.A test result that is nonreactive does not exclude thepossibility of exposure to or infection with HIV-1 and/orHIV-2. Nonreactive results in this assay for individualswith prior exposure to HIV-1 and/or HIV-2 may be due toantigen and antibody levels that are below the limit ofdetection of this assay.The [facility] HIV Ag/Ab Combo assay result andsupplemental assay results should be interpreted inconjunction with the patient's clinical presentation,history and other laboratory results. If the results areinconsistent with clinical evidence, additional testing issuggested to confirm the result. Blood Venous blood specimen / Unknown 07/20/2023 11:16 AM EST 07/20/2023 1:16 PM EST us Yarely Kruger MD LAB BLOOD ORDERABLES Final Result [facility] [address] [place] [phone] * HPV mRNA E6/E7 w/Reflex to HPV Genotypes 16, 18/45 (07/20/2023 11:00 AM EST) HPV nRNA E6/E7 Not Detected Not Detected [facility] Comment:Methodology: Transcr iption-Mediated AmplificationThis assay detects E6/E7 viral messenger RNA (mRNA) from 14high-risk HPV types (16,18,31,33,35,39,45,51,52,56,58,59,66,68).Cervical sources are required for HPV testing.If a vaginal source from a patient who has had atotal hysterectomy with removal of cervix wassubmitted, please contact the testing laboratoryfor alternative testing options.For additional information, please refer [email or web address]/faq/[email or web address](This link if provided for information/educational purposes only.)THIS TEST WAS PERFORMED AT:[facility] [place] [phone] TOMPKINS MD HPV mRNA E6/E7 [facility] HPV 16 RNA [facility] HPV 18/45 RNA [facility] 07/20/2023 11:0 0 AM EST 07/24/2023 8:00 AM EST us Yarely Kruger MD LAB CYTOLOGY ORDERABLES Fi nal Result [facility] [address] [place] [phone] * Pap Smear (07/20/2023 11:00 AM EST) 07/20/2023 11:0 0 AM EST 07/24/2023 8:00 AM EST Narrative [facility] - 07/26/2023 12:54 PM EST ----- ------- Name: Adelaida Husain ? Age/Sex: 43/F ? : 1980 Unit#: [id number] ?? Attend Dr: Yarely Kruger MD ?Re07/20/23 ?Status: DEP REF ? Location: [facility] ? Disch: ? ----- ------- SPEC : [id number] ? RECD: 07/24/23 ? STATUS: ??SOUT ? REQ NUM: [id number] ? SYDNIE: 07/20/23 ? SUBM DR: Yarely [...] 66, 68) ?? HPV testing performed by [facility], [place]. ??See reference laboratory ?? portion of the EMR for entire report. ?Clinical Information LMP: Unknown date Previous PAP test: 2018, NILM, HPV negative ? Material Received ?? ThinPrep-Cervical ----- ------- Signed (signature on file) ESTEE Garcia ([facility]) 07/26/23 1254 ? ----- ------- ? END OF REPORT ? Yarely Kruger MD LAB CYTOLOGY ORDERABLES Fi nal Result Performing Organization Address City/State/[facility] Co de Phone Number [facility] [address] [place] [phone] * Hepatitis C Antibody (04/19/2018) Hepatitis C Antibody Nonreactive Blood Historical Provider HEALTH MAINTENANCE Final Result from Last 3 Months or Most Recently Relevant to Health Maintenance Insurance [facility] C3 [place] Advance Directives Documents on File Type Date Recorded Patient Mail Order Sorter Expl anation Advance Directives and Living Will 12/20/2023 Health Care Proxy 12/20/23 Care Teams Vice President Quality Relationship Specialty Start Date End Date Charles, MD Yarely [address] [place] [phone] PCP - General Family Medicine 07/23/18 Zeny Reddy MD [address] [place] [address] Orthopaedic Surgery 06/11/24 Tonya Parker NP [address] [place] [address] Urology 08/26/24 Dr. Anselmo Mcadams MD [facility] [address] [facility] [address] Ophthalmology 08/15/24
--- OUTSIDE RECORDS SUMMARY | 2024-11-05 14:50 | XMS_ITS | Encounter Summary ---
Author Organization [employer] Address [address]t [place] [address] Care Team Providers Care Laundry Machine Tender Name Role Phone Yarely Kruger MD Primary Care Provider [phone] Zeny Reddy MD Unavailable [phone] Tonya Parker NP Unavailable Encounter Details Date Type Department Care Team (Late st Contact Info) Description 08/28/2022 Abstract [facility] MED[facility] [address] [place], [place] [phone] Yarely Kruger MD [address] [place], [place] [phone] Social History Tobacco Use Types Packs/Day Years [...] on filedocumented in this encounter Care Teams Laundry Machine Tender Relationship Specialty Start Date End Date Yarely Kruger MD [address] [place] [address] PCP - General Family Medicine 07/23/18 Zeny Reddy MD [address] [place] [address] Orthopaedic Surgery 06/11/24 Tonya Parker NP [address] [place] [address] Urology 08/26/24 Dr. Anselmo Mcadams MD [facility] [address] [facility] [address] Ophthalmology 08/15/24 documented as of this encounter
--- OUTSIDE RECORDS SUMMARY | 2024-11-05 14:50 | XMS_ITS | Encounter Summary ---
Author Organization [employer] Address [address] [place] [address] Care Team Providers Care Terminologist Name Role Phone Yarely Kruger MD Primary Care Provider [phone] Zeny Reddy MD Unavailable [phone] Tonya Parker NP Unavailable Encounter Details Date Type Department Care Team (Late st Contact Info) Description 05/09/2023 Abstract [facility] [address] [place], [place] [phone] Yarely Kruger MD [address] [place], [place] [phone] Social History Tobacco Use Types Packs/Day Years [...] documented as of this encounter Care Teams Terminologist Relationship Specialty Start Date End Date Yarely Kruger MD [address] [place] [phone] PCP - General Family Medicine 07/23/18 Zeny Reddy MD [address] [place] [address] Orthopaedic Surgery 06/11/24 Tonya Parker NP [address] [place] [address] Urology 08/26/24 Dr. Anselmo Mcadams MD [facility] [address] [facility] [address] Ophthalmology 08/15/24 documented as of this encounter
== END 2024-11-05 13:29 | disposition home or self-care (01) ==
LOC: HO.HOS 12:34
PROVIDERS: PCP Family Medicine; Visit Provider Orthopaedic Surgery
DX: G56.02 Carpal tunnel syndrome, left upper limb (principal)
CPT/HCPCS: 99214

== ENCOUNTER → 2024-11-05 12:34 | Outpatient (BNVA) | payer MEDICAID, SELFPAY | PROVIDERS: PCP Family Medicine; Visit Provider Orthopaedic Surgery | DX: Z01.818 Encounter for other preprocedural examination (principal); G56.02 Carpal tunnel syndrome, left upper limb | CPT/HCPCS: 99212 ==

== ENCOUNTER 2024-11-11 06:29 | Day surgery (SDC) | payer MEDICAID, SELFPAY ==
--- OUTSIDE RECORDS SUMMARY | 2024-09-18 08:13 | XMS_ITS | Encounter Summary ---
Author Organization [employer] Address 75 [facility] 7t [place] [address] Care Team Providers Care Water Sander Name Role Phone Yarely Kruger MD Primary Care Provider [phone]- [phone] Zeny Reddy MD Unavailable [phone] Tonya Parker NP Unavailable Encounter Details Date Type Department Care Team (Late st Contact Info) Description 09/04/2024 Orders Only [facility] MEDICINE 230 [place], [place] [phone] Yarely Kruger MD 230 [place], [place] [phone] Social History Tobacco Use Types Packs/Day Years [...] Procedure Name Priority Date/Time Associated Diagnosis Comments BI MAMMOGRAM SCREEN W DONNELL W IMPLANTS EL Routine 09/04/2024 3:15 PM EST documented in this encounter Results * BI Mammogram Screen w/ Donnell w/ Implants El (09/04/2024 3:15 PM EST) Anatomical Region Laterality Modality Mammography 09/04/2024 3:15 PM EST Narrative 09/13/2024 9:49 AM EST ? [facility] [place] ? [address] ?[place] [address] ? Mammography Report ? Signed ? Patient: Husain,Adelaida B ?MR#: [id number] ?? [id number] ? : 1980 ?Acct:[id number] ? Age/Sex: 44 / F ?ADM Date: 02/13/25 ? Loc: HO.MAMMO ? Attending Dr: Yarely Kruger MD ? Ordering Physician: Yarely Kruger MD ?Results: 2B ?? enign Findings ? Date of Service: 09/04/24 ?Follow Up: 1 Year From Orig ?? inal Mammogram ? Procedure(s): MM tomosynthesis screen imp BI ?? Accession Number(s): [id number] ? cc: Yarely Kruger MD ? EXAMINATION: ?? MM SCREENING DIGITAL BREAST TOMOSYNTHESIS, BILATERAL ? CLINICAL INFORMATION: ? Screening. Asymptomatic. ? COMPARISON: ?? Mammography: Comparison is made with relevant avialable priors. ? TECHNIQUE: ?? Digital mammography is performed in craniocaudal and mediolateral ?? oblique views along with computer-aided detection (CAD). Digital breast ?? tomosynthesis is performed in implant-displaced craniocaudal and ?? implant-displaced mediolateral oblique views along with computer-aided ?? detection (CAD). ? FINDINGS: ?? There are scattered areas of fibroglandular density (ACR BI-RADS breast ?? composition Category b). ?? Bilateral retropectoral distorted implants are stable appearing. ?? There are no significant masses, abnormal calcifications, or other ?? abnormalities. ? MM/MM tomosynthesis screen imp BI ?? IMPRESSION: ?? There are no significant changes from prior study. ? ASSESSMENT: ? BI-RADS BI-RADS 2 - Benign Findings ? RECOMMENDATION: ?? Routine annual mammography screening. ? 1 year F/U ? This patient's information was entered into a reminder system with a ?? target due date for their next mammogram. ? Electronically signed by: ??Shira Nice DO ??09/13/2024 09:46 AM EST ?? RP ? Dictated By: ?Shira Nice DO ? Signed By: ?<Electronically signed by Shira Nice, DO in OV> ? 09/13/24 0946 ? DD/ 1515 ? TD/TT: 09/04/24 1530 ? Headmaster/Mistress: ? Procedure Note Donotuseinterpreter, Image - 09/13/2024 [facility] [address] [place] [address] Mammography Report Signed Patient: Adelaida Husain BMR#: [id number] : 1980Acct:[id number] Age/Sex: 44 / FADM Date: 09/04/24 Loc: HO.MAMMO Attending Dr: Yarely Kruger MD Ordering Physician: Yarely Kruger MDResults: 2B enign Findings Date of Service: 09/04/24Follow Up: 1 Year From Orig inal Mammogram Procedure(s): MM tomosynthesis screen imp BI Accession Number(s): [id number] cc: Yarely Kruger MD EXAMINATION: MM SCREENING DIGITAL BREAST TOMOSYNTHESIS, BILATERAL CLINICAL INFORMATION: Screening. Asymptomatic. COMPARISON: Mammography: Comparison is made with relevant avialable priors. TECHNIQUE: Digital mammography is performed in craniocaudal and mediolateral oblique views along with computer-aided detection (CAD). Digital breast tomosynthesis is performed in implant-displaced craniocaudal and implant-displaced mediolateral oblique views along with computer-aided detection (CAD). FINDINGS: There are scattered areas of fibroglandular density (ACR BI-RADS breast composition Category b). Bilateral retropectoral distorted implants are stable appearing. There are no significant masses, abnormal calcifications, or other abnormalities. MM/MM tomosynthesis screen imp BI IMPRESSION: There are no significant changes from prior study. ASSESSMENT: BI-RADS BI-RADS 2 - Benign Findings RECOMMENDATION: Routine annual mammography screening. 1 year F/U This patient's information was entered into a reminder system with a target due date for their next mammogram. Electronically signed by: Shira Nice DO 09/13/2024 09:46 AM EST Dictated By: Shira Nice DO Signed By: <Electronically signed by Shria Nice DO in OV> 09/13/24 0946 DD/ 1515 TD/TT: 09/04/24 1530 Headmaster/Mistress: Yarely Kruger MD IMG BI PROCEDURES Edited R esult - Final documented in this encounter Visit Diagnoses Not on filedocumented in this encounter Additional Health Concerns Assessment Noted Time PHQ-9 Depression Total Score: 0 08/20/19 1:39 PM EST documented as of this encounter Care Teams Water Sander Relationship Specialty Start Date End Date Yarely Kruger MD [address] [place] [address] PCP - General Family Medicine 07/23/18 Zeny Reddy MD [address] [place] [address] Orthopaedic Surgery 06/11/24 Tonya Parker NP [address] [place] [address] Urology 08/26/24 Dr. Anselmo Mcadams MD [facility] [address] [facility] [address] Ophthalmology 08/15/24 documented as of this encounter
--- OUTSIDE RECORDS SUMMARY | 2024-09-18 08:14 | XMS_ITS | Encounter Summary ---
Author Organization [employer] Address [address] [place] [address] 7t [place] [address] Care Team Providers Care Egg Crater Name Role Phone Yarely Kruger MD Primary Care Provider [phone]- [phone] Zeny Reddy MD Unavailable [phone] Tonya Parker NP Unavailable Encounter Details Date Type Department Care Team (Late st Contact Info) Description 03/14/2023 Orders Only [facility] [address] [place] [phone] Yarely Kruger MD 230 [place], [place] [phone] Social History Tobacco Use Types Packs/Day Years [...] documented as of this encounter Care Teams Egg Crater Relationship Specialty Start Date End Date Yarely Kruger MD 230 [place] [address] PCP - General Family Medicine 07/23/18 Zeny Reddy MD [address] [place] [address] Orthopaedic Surgery 06/11/24 Tonya Parker NP [address] [place] [address] Urology 08/26/24 Dr. Anselmo Mcadams MD [facility] [address] [facility] [address] Ophthalmology 08/15/24 documented as of this encounter
--- OUTSIDE RECORDS SUMMARY | 2024-09-18 08:14 | XMS_ITS | Encounter Summary ---
Author Organization [employer] Address 75 [facility] 7t [place] [address] Care Team Providers Care General Maintenance Helper Name Role Phone Yarely Kruger MD Primary Care Provider [phone]- [phone] Zeny Reddy MD Unavailable [phone] Tonay Parker NP Unavailable Encounter Details Date Type Department Care Team (Late st Contact Info) Description 12/21/2023 Orders Only [facility]INE 230 [place], [place] [phone] Yarely Kruger MD 230 [place], [place] [phone] Acute cystitis without hematuria (Primary Dx) Social [...] the past 12 months, has t he [employer], gas, oil or water [employer] threatened to shut off services in your [...] Narrative 01/15/2024 6:12 PM EDT ? [facility] ?[address] ?[place] [address] ?XRay Report ? Signed ? Patient: Adelaida Husain ?MR#: [id number] ?? [id number] ? : 1980 ?Acct:[id number] ? Age/Sex: 43 / F ?ADM Date: 01/15/24 ? Loc: HO.ED ? Attending Dr: ? Ordering Physician: Madeline Duran NP ?? Date of Service: 01/15/24 ?? Procedure(s): XR thoracic spine 2V ?? Accession Number(s): [id number] ? cc: Yarely Kruger MD; Renee,Madeline NEURODIAGNOSTIC TECHNOLOGIST ? EXAMINATION: ?? XR THORACOLUMBAR SPINE ? [...] 1807 ? DD/ 1703 ? TD/TT: ? Washing Machine Repairer: LIZ ? Procedure Note Doncaitlynter, Image - 01/15/[address] [address] XRay Report Signed Patient: Adelaida Husain BMR#: [id number] : 1980Acct:[id number] Age/Sex: 43 / FADM Date: 01/15/24 Loc: HO.ED Attending Dr: Ordering Physician: Madeline Duran NP Date of Service: 01/15/24 Procedure(s): XR thoracic spine 2V Accession Number(s): [id number] cc: Yarely Kruger MD; Madeline Duran NP [...] in OV> 01/15/24 1807 DD/ 1703 TD/TT: Washing Machine Repairer: LIZ [facility] External Provider IMG XR PROCEDURES Final Result documented in this encounter Visit Diagnoses Diagnosis Acute cystitis without hematuria- Primary documented in this encounter Additional Health Concerns Assessment Noted Time PHQ-9 Depression Total Score: 0 03/05/20 23 9:12 AM EDT documented as of this encounter Care Teams General Maintenance Helper Relationship Specialty Start Date End Date Yarely Kruger MD 230 [place] [address] PCP - General Family Medicine 07/23/18 Zeny Reddy MD [address] [place] [address] Orthopaedic Surgery 06/11/24 Tonya Parker NP [address] [place] [address] Urology 08/26/24 Dr. Anselmo Mcadams MD [facility] [address] [facility] [address] Ophthalmology 08/15/24 documented as of this encounter
--- OUTSIDE RECORDS SUMMARY | 2024-09-18 08:14 | XMS_ITS | Encounter Summary ---
Author Organization [employer] Address [address] [facility] 7t [place] [address] Care Team Providers Care Armed Custom Protection Officer Name Role Phone Yarely Kruger MD Primary Care Provider [phone] Zeny Reddy MD Unavailable [phone] Tonya Parker NP Unavailable Encounter Details Date Type Department Care Team (Late st Contact Info) Description 05/09/2023 Abstract [facility] 230 [place], [place] [phone] Yarely Kruger MD 230 [place], [place] [phone] Social History Tobacco Use Types Packs/Day Years [...] documented as of this encounter Care Teams Armed Custom Protection Officer Relationship Specialty Start Date End Date Yarely Kruger MD [address] [place] [phone] PCP - General Family Medicine 07/23/18 Zeny Reddy MD [address] [place] [address] Orthopaedic Surgery 06/11/24 Tonya Parker NP [address] [place] [address] Urology 08/26/24 Dr. Anselmo Mcadams MD [facility] [address] [facility] [address] Ophthalmology 08/15/24 documented as of this encounter
--- OUTSIDE RECORDS SUMMARY | 2024-09-18 08:14 | XMS_ITS | Encounter Summary ---
Author Organization [employer] Address [address] [facility] 7t [place] [address] Care Team Providers Care Apartment Maintenance Worker Name Role Phone Rolette, Yarely JUAREZ Primary Care Provider [phone] Zeny Reddy MD Unavailable [phone] Tonya Parker NP Unavailable Encounter Details Date Type Department Care Team (Late st Contact Info) Description 09/13/2022 Orders Only [facility]INE [address] [place], [place] [phone] Nevin Serrano MD [address] [place], [place] [phone] Vision problem (Primary Dx) Social History Tobacco [...] EDT 02/21/2023 12:13 PM EDT Comment:UACC Narrative [facility] - 02/23/2023 8:33 AM EDT Escherichia coli Quant > 100,000 cfu/mL Escherichia coli: Ampicillin 4(S) Escherichia coli: Ceftriaxone <=0.25(S) Escherichia coli: Gentamicin <=1(S) Escherichia coli: Levofloxacin <=0.12(S) Escherichia coli: Nitrofurantoin <=16(S) Escherichia coli: Trimethoprim/Sulfamethoxazole <=20(S) Specimen Source: Urine clean catch Gautam Mcdonald MD LAB MICROBIOLOGY - GENERAL ORDER BONG Final Result Performing Organization Address [facility] Co de Phone Number [facility] [address] [place] [phone] * (ABNORMAL) Bacterial Vaginosis (02/20/2023 12:00 AM EDT) Trichomonas DNA Probe Negative Negative [facility] Gardnerella DNA Probe Positive(A) Negative [facility] Mary DNA Probe Positive(A) Negative [facility] 02/20/2023 02/20/2023 Gautam Mcdonald MD LAB MICROBIOLOGY - GENERAL ORDER BONG Final Result Performing Organization Address [facility] de Phone Number [facility] [address] [place] [phone] documented in this encounter Visit Diagnoses Diagnosis Vision problem- Primary Problems with sight documented in this encounter Care Teams Apartment Maintenance Worker Relationship Specialty Start Date End Date Rolette, MD Yarely [address] [place] [address] PCP - General Family Medicine 07/23/18 Zeny Reddy MD [address] [place] [address] Orthopaedic Surgery 06/11/24 Tonya Parker NP [address] [place] [address] Urology 08/26/24 Dr. Anselmo Mcadams MD [facility] [address] [facility] [address] Ophthalmology 08/15/24 documented as of this encounter
--- OUTSIDE RECORDS SUMMARY | 2024-09-18 08:14 | XMS_ITS | Encounter Summary ---
Author Organization [employer] Address [address] [place] [address] 7t [place] [address] Care Team Providers Care Medical Office Receptionist Assistant Name Role Phone Yarely Kruger MD Primary Care Provider [phone] Zeny Reddy MD Unavailable [phone] Tonya Parker NP Unavailable Reason for Visit * Reason Onset Date Comments Referral 09/08/2022 Encounter Details Date Type Department Care Team (Late st Contact Info) Description 09/08/2022 Telephone [facility] MEDICINE [address] [place], [place] [phone] Yarely Kruger MD 230 [place], [place] [phone] Referral Social History Tobacco Use Types Packs/Day [...] an referral to be seen at the [facility] center Please contact pt at [phone] documented in this encounter Plan of Treatment Not on file documented as of this encounter Visit Diagnoses Not on filedocumented in this encounter Care Teams Medical Office Receptionist Assistant Relationship Specialty Start Date End Date Yarely Kruger MD [address] [place] [address] PCP - General Family Medicine 07/23/18 Zeny Reddy MD [address] [place] [address] Orthopaedic Surgery 06/11/24 Tonya Parker NP [address] [place] [address] Urology 08/26/24 Dr. Anselmo Mcadams MD [facility] [address] [facility] [address] Ophthalmology 08/15/24 documented as of this encounter
--- OUTSIDE RECORDS SUMMARY | 2024-09-18 08:14 | XMS_ITS | Encounter Summary ---
Author Organization [employer] Address [address] [facility] 7t [place] [address] Care Team Providers Care Oyster Floater Name Role Phone Yarely Kruger MD Primary Care Provider [phone] Zeny Reddy MD Unavailable [phone] Tonya Parker NP Unavailable Encounter Details Date Type Department Care Team (Late st Contact Info) Description 08/28/2022 Abstract [facility] MEDICINE 230 [place], [place] [phone] Yarely Kruger MD 230 [place], [place] [phone] Social History Tobacco Use Types Packs/Day Years [...] on filedocumented in this encounter Care Teams Oyster Floater Relationship Specialty Start Date End Date Yarely Kruger MD 230 [place] [address] PCP - General Family Medicine 07/23/18 Zeny Reddy MD [address] [place] [address] Orthopaedic Surgery 06/11/24 Tonya Parker NP [address] [place] [address] Urology 08/26/24 Dr. Anselmo Mcadams MD [facility] [address] [facility] [address] Ophthalmology 08/15/24 documented as of this encounter
--- OUTSIDE RECORDS SUMMARY | 2024-09-18 08:15 | XMS_ITS | Encounter Summary ---
Author Organization [employer] Address [address] [place] [address] 7t [place] [address] Care Team Providers Care Housekeeper Head Name Role Phone Yarely Kruger MD Primary Care Provider [phone] Zeny Reddy MD Unavailable [phone] Reason for Visit * Reason Comments Pre-op Exam pre-op for eye surge ry 09/05/24 Encounter Details Date Type Department Care Team (Late st Contact Info) Description 08/20/2024 1:30 PM EST Office Visit [facility] MEDICINE 230 [place], [place] [phone] Yarely Kruger MD 230 [place], [place] [phone] Preop examination (Primary Dx); Dietary counseling; Exercise [...] MD Date of Procedure: on 09/05/24 at [facility] Type of Anesthesia: [...] denies history of irregular heartbeat, unstable angina, OK within 1 month, severe congestive heart failure, high grade arrhythmia, or symptomatic valvular disease. Denies hx RODERICK, asthma. No history of alcohol withdrawal; not a regular, heavy drinker. Denies steroid exposure. Denies anticoagulation. Denies antiplatelet therapy. Chronic Medical Conditions: Patient Active Problem List Diagnosis Retinal vasculitis Solitary cyst of breast Systemic lupus erythematosus ([facility]/HCC) Other specified health status Epiretinal membrane Pseudophakia [...] documented as of this encounter Care Teams Housekeeper Head Relationship Specialty Start Date End Date Yarely Kruger MD [address] [place] [address] PCP - General Family Medicine 07/23/18 Zeny Reddy MD [address] [place] [address] Orthopaedic Surgery 06/11/24 Dr. Anselmo Mcadams MD [facility] [address] [facility] [address] Ophthalmology 08/15/24 documented as of this encounter
--- OUTSIDE RECORDS SUMMARY | 2024-09-18 08:15 | XMS_ITS | Clinical Summary ---
Author Organization [employer] Address [address] [place] [address] 7t [place] [address] Care Team Providers Care Field Representative/Health Education Name Role Phone Yarely Kruger MD Primary Care Provider [phone] Zeny Reddy MD Unavailable [phone] Tonya Parker NP Unavailable Allergies No known [...] AM EDT): Seen by urology, Jeremie Parker FRONT DESK CLERK : US 12/03/23 BLADDER: Well distended and [...] every [address] Mcadams at [facility] in [place]. 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 She was seen on 08/15/[address] Mcadams Assessment & Plan (07/20/2023 9:00 AM EST): Followed every [address] Mcadams at [facility] in [place]. The patient has optic nerve pallor, vascular [...] every [address] Mcadams at [facility] in [place]. The patient has optic nerve pallor, vascular [...] routine opthalmic exam 2005. work up with computer systems architect Dr. 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 Initially treated with methotrexate and IVIG. Failed MTX and Imuran. Previously failed tapering IV-IG below 20g in 2009. Stopped IVIG 01/2015 as no inflammation noted. Stopped prednisone oral 07/2018. Seen by Dr. Martinez Mcadams 07/28/2019 at [facility] [phone]. Inflammation and worsening vasculitis seen on exam [...] as Dr. Mcadams -Continue with Dr. Luis [facility] optometry last seen 11/2022 we scheduled her for visual field on 02/2023. 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 Discovered on routine opthalmic exam 2005. work up with computer systems architect Dr. 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 Initially treated with methotrexate and IVIG. Failed MTX and Imuran. Previously failed tapering IV-IG below 20g in 2009. Stopped IVIG 01/2015 as no inflammation noted. Stopped prednisone oral 07/2018. Seen by Dr. Martinez Mcadams 07/28/2019 at [facility] [phone]. Inflammation and worsening vasculitis seen on exam [...] as Dr. Mcadams -Continue with Dr. Luis [facility] optometry last seen 11/2022 we scheduled her for visual field on 02/2023. 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 Discovered on routine opthalmic exam 2005. work up with computer systems architect Dr. 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 Initially treated with methotrexate and IVIG. Failed MTX and Imuran. Previously failed tapering IV-IG below 20g in 2009. Stopped IVIG 01/2015 as no inflammation noted. Stopped prednisone oral 07/2018. Seen by Dr. Martinez Mcadams 07/28/2019 at [facility] [phone]. Inflammation and worsening vasculitis seen on exam [...] as Dr. Mcadams -Continue with Dr. Luis [facility] optometry last seen 11/2022 we scheduled her for visual field on 02/2023. 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 Discovered on routine opthalmic exam 2005. work up with computer systems architect Dr. 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 Initially treated with methotrexate and IVIG. Failed MTX and Imuran. Previously failed tapering IV-IG below 20g in 2009. Stopped IVIG 01/2015 as no inflammation noted. Stopped prednisone oral 07/2018. Seen by Dr. Martinez Mcadams 07/28/2019 at [facility] [phone]. Inflammation and worsening vasculitis seen on exam [...] as Dr. Mcadams -Continue with Dr. Luis [facility] optometry last seen 11/2022 we scheduled her [...] Encounters Date Type Department Care Team Description 09/04/2024 Orders Only [address] [address] Yarely Kruger MD 08/21/[address] [address] Yarely Kruger MD Pre-op Exam 08/20/2024 1:30 PM EST Office Visit [address] [address] Yarely Kruger MD Preop examination (Primary Dx); Dietary counseling; Exercise counseling; Systemic lupus erythematosus, unspecified SLE type, unspecified organ involvement status (CMS/HCC); Other specified health status 08/20/2024 Travel 08/19/[address] [address] Dyan Price [place] chartprep 08/15/[address] [address] Yarely Kruger MD Walk in appt request 08/09/2024 9:20 AM EST Office Visit [facility] [address] [place] [address] Gautam Mcdonald MD Influenza A; Acute cystitis without hematuria 08/09/2024 Travel 06/25/[address] [address] Yarely Kruger MD Referral from Last 3 [...] 08/20/2025 08/20/2024 Tobacco Screening 08/20/2025 08/20/2024 Mammogram 09/04/2026 09/04/2024, 02/0 02/2024, 08/30/2023, Additional history exists Cervical Cancer Screening 07/20/2028 [...] BI MAMMOGRAM SCREEN W DONNELL W IMPLANTS EVAN Routine 09/04/2024 3:15 PM EST CULTURE, URINE, ROUTINE Routine 08/09/2024 9:29 AM [...] Routine 08/09/2024 9:26 AM EST Influenza A HIV 1/2 ANTIGEN/ANTIBODY, FOURTH GENERATION W/RFL Routine 07/20/2023 11:16 AM EST Routine screening for STI (sexually transmitted infection) HPV MRNA E6/E7 REFLEX TO HPV 16, 18/45 Routine 07/20/2023 11:00 AM EST PAP SMEAR Routine 07/20/2023 11:00 AM EST HM HEPATITIS C ANTIBODY Routine 04/19/2018 from Last 3 Months or Most Recently Relevant to Health Maintenance Results * BI Mammogram Screen w/ Donnell w/ Implants Evan (09/04/2024 3:15 PM EST) Anatomical Region Laterality Modality Mammography 09/04/2024 3:15 PM EST Narrative 09/13/2024 9:49 AM EST ? [facility] ? [address] ?[place], [place] [address] ? Mammography Report ? Signed ? Patient: Husain,Adelaida B ?MR#: [id number] ?? [id number] ? : 1980 ?Acct:[id number] ? Age/Sex: 44 / F ?ADM Date: 09/04/24 ? Loc: HO.MAMMO ? Attending Dr: Yarely Kruger MD ? Ordering Physician: Yarely Kruger MD ?Results: 2B ?? enign Findings ? Date of Service: 09/04/24 ?Follow Up: 1 Year From Orig ?? inal Mammogram ? Procedure(s): MM tomosynthesis screen imp BI ?? Accession Number(s): [id number] ? cc: Yarely Kruger MD ? EXAMINATION: [...] DD/ 1515 ? TD/TT: 09/04/24 1530 ? Director Of Employer Services: ? Procedure Note Joey, Image - 09/13/2024 [facility] [address] [place] [address] Mammography Report Signed Patient: Adelaida Husain BMR#: [id number] : 1980Acct:[id number] Age/Sex: 44 / FADM Date: 09/04/24 Loc: HO.ELIJAH Attending Dr: Yarely Kruger MD Ordering Physician: Yarely Kruger MDResults: 2B enign Findings Date of Service: 09/04/24Follow Up: 1 Year From Orig inal Mammogram Procedure(s): MM tomosynthesis screen imp BI Accession Number(s): [id number] cc: Yarely Kruger MD EXAMINATION: MM SCREENING [...] Shira Nice DO 09/13/2024 09:46 AM EST RP Dictated By: Shira Nice DO Signed By: <Electronically signed by Shira Nice DO in OV> 09/13/24 0946 DD/ 1515 TD/TT: 09/04/24 1530 Director Of Employer Services: us Yarely Kruger MD IMG BI PROCEDURES Edited R esult - Final * Culture, Urine, Routine (08/09/2024 9:29 AM EST) Urine Urine specimen obtained by clean catch procedure / Unknown 08/09/2024 9:29 AM EST 08/09/2024 1:46 PM EST Comment:[facility] - 08/12/2024 7:57 AM EST Escherichia [...] ORDER BONG Final Result Performing Organization Address [facility] Co de Phone Number [facility] [address] [place] [address] [phone] * (ABNORMAL) POCT Urinalysis (08/09/2024 9:28 [...] Media Lot # [id number] Lot# Expiration Date [address] Urine 08/09/2024 9:28 AM EST Gautam Mcdonald MD POINT OF CARE TEST ENTER/EDIT OR DERABLES Final Result * POCT Rapid Influenza B SPAIN ID NOW (08/09/2024 9:26 AM EST) Influenza B Negative Negative, Indeterminate [facility] QC Media Lot # [id number] [facility] Lot# Expiration Date 8626 [facility] Swab 08/09/2024 9:26 AM EST us Gautam Mcdonald MD POINT OF CARE TEST ENTER/EDIT OR DERABLES Edited Result - Final Performing Organization Address City/[facility]/ZIP Co de Phone Number [facility] [address] [place] [address] [phone] * (ABNORMAL) POCT Rapid Influenza A SPAIN ID NOW (08/09/2024 9:26 AM EST) Influenza A Positive( A) Negative, Indeterminate [facility] QC Media Lot # [id number] [facility] Lot# Expiration Date 8,226 [facility] Swab 08/09/2024 9:26 AM EST us Gautam Mcdonald MD POINT OF CARE TEST ENTER/EDIT OR DERABLES Final Result Performing Organization Address [facility]/ZIP Co de Phone Number [facility] [address] [place] [phone] * POCT Rapid Strep A SPAIN ID NOW (08/09/2024 9:26 AM EST) [facility] Rapid Strep A Screen Negative Negative, None Detected QC Media Lot # [id number] Lot# Expiration Date 41,126 Swab 08/09/2024 9:26 AM EST us Gautam Mcdonald MD POINT OF CARE TEST ENTER/EDIT OR DERABLES Final Result * POCT Rapid Covid-19 BinaxNOW (08/09/2024 9:26 AM EST) [facility] Rapid COVID Ag Negative [facility] QC Media Lot # [id number] [facility] Lot# Expiration Date 8,226 [facility] Swab 08/09/2024 9:26 AM EST us Gautam Mcdonald MD POINT OF CARE TEST ENTER/EDIT OR DERABLES Final Result Performing Organization Address [facility] Co de Phone Number [facility] [address] [place] [phone] * HIV-1/2 Antigen and Antibodies, Fourth Generation, with Reflexes (07/20/2023 11:16 AM EST) [facility] HIV AB/AG Nonreactive Nonreactive [facility] Comment:HIV-1 p24 Ag and/or HIV-1/HIV-2 Ab not detected.A test result that is nonreactive does not exclude thepossibility of exposure to or infection with HIV-1 and/orHIV-2. Nonreactive results in this assay for individualswith prior exposure to HIV-1 and/or HIV-2 may be due toantigen and antibody levels that are below the limit ofdetection of this assay.The Ubimo HIV Ag/Ab Combo assay result andsupplemental assay results should be interpreted inconjunction with the patient's clinical presentation,history and other laboratory results. If the results areinconsistent with clinical evidence, additional testing issuggested to confirm the result. Blood Venous blood specimen / Unknown 07/20/2023 11:16 AM EST 07/20/2023 1:16 PM EST Yarely Kruger MD LAB BLOOD ORDERABLES Final Result Performing Organization Address [facility]/ZIP Co de Phone Number [facility] [address] [place] [address] [phone] * HPV mRNA E6/E7 w/Reflex to HPV Genotypes 16, 18/45 (07/20/2023 11:00 AM EST) HPV nRNA E6/E7 Not Detected Not Detected [facility] Comment:Methodology: Transcr iption-Mediated AmplificationThis assay detects E6/E7 viral messenger RNA (mRNA) from 14high-risk HPV types (16,18,31,33,35,39,45,51,52,56,58,59,66,68).Cervical sources are required for HPV testing.If a vaginal source from a patient who has had atotal hysterectomy with removal of cervix wassubmitted, please contact the testing laboratoryfor alternative testing options.For additional information, please refer tohttp://education.[employer]/faq/NGY465t9(This link if provided for information/educational purposes only.)THIS TEST WAS PERFORMED AT:[facility] [place] [phone] TOMPKINS MD HPV mRNA E6/E7 [facility] HPV 16 RNA [facility] HPV 18/45 RNA [facility] 07/20/2023 11:0 0 AM EST 07/24/2023 8:00 AM EST Yarely Kruger MD LAB CYTOLOGY ORDERABLES Fi nal Result Performing Organization Address City/[facility]/ZIP Co de Phone Number [facility] [address] [place] [address] [phone] * Pap Smear (07/20/2023 11:00 AM EST) 07/20/2023 11:0 0 AM EST 07/24/2023 8:00 AM EST Narrative [facility] - 07/26/2023 12:54 PM EST ----- ------- Name: Adelaida Husain ? Age/Sex: 43/F ? : 1980 Unit#: [id number] ?? Attend Dr: Yarely Kruger MD ?Re07/20/23 ?Status: DEP REF ? Location: HO.HHCL ? Disch: ? ----- ------- SPEC : [id number] ? RECD: 07/24/23-799 ? STATUS: ??SOUT ? REQ NUM: [id number] ? SYDNIE: 07/20/23 ? SUBM DR: Yarely [...] 66, 68) ?? HPV testing performed by [facility], [place], [place]. ??See reference laboratory ?? portion of the EMR for entire report. ?Clinical Information LMP: Unknown date Previous PAP test: 2018, NILM, HPV negative ? Material Received ?? ThinPrep-Cervical ----- ------- Signed (signature on file) ESTEE Garcia (ASCP) 07/26/23 1254 ? ----- ------- ? END OF REPORT ? Yarely Kruger MD LAB CYTOLOGY ORDERABLES Fi nal Result [facility] [address] [place] [phone] * Hepatitis C Antibody (04/19/2018) Hepatitis C Antibody Nonreactive Blood Historical Provider HEALTH MAINTENANCE Final Result from Last 3 Months or Most Recently Relevant to Health Maintenance Insurance [employer] C3 [employer]BELL[employer] Advance Directives Documents on File Type Date Recorded Patient Veterinarian Expl anation Advance Directives and Living Will 12/20/2023 Health Care Proxy 12/20/23 Care Teams Field Representative/Health Education Relationship Specialty Start Date End Date [place], [place] Yarely [address] [place] [address] PCP - General Family Medicine 07/23/18 Zeny Reddy MD [address] [place] [address] Orthopaedic Surgery 06/11/24 Tonya Parker NP [address] [place] [address] Urology 08/26/24 Dr. Anselmo Mcadams MD [facility] Main [address] [facility] [address] Ophthalmology 08/15/24
--- OUTSIDE RECORDS SUMMARY | 2024-09-18 08:15 | XMS_ITS | Encounter Summary ---
Author Organization [employer] Address [address] [facility] 7t [place] [address] Care Team Providers Care Guide Plant Name Role Phone Yarely Kruger MD Primary Care Provider [phone] Zeny Reddy MD Unavailable [phone] Reason for Visit * Reason Onset Date Comments Pre-op Exam 08/21/2024 Encounter Details Date Type Department Care Team ([facility] st Contact Info) Description 08/21/2024 Telephone [facility] MEDICINE [address] [place], [place] [phone] Yarely Kruger MD [address] [place], [place] [phone] Pre-op Exam Social History Tobacco Use Types [...] August. Had to LVM with the surgical asst of Dr. Anselmo Mcadams withcall back number [...] documented as of this encounter Care Teams Guide Plant Relationship Specialty Start Date End Date Yarely Kruger MD [address] [place] [address] PCP - General Family Medicine 07/23/18 Zeny Reddy MD [address] [place] [address] Orthopaedic Surgery 06/11/24 Dr. Anselmo Mcadams MD [facility] [address] [place] [address] Ophthalmology 08/15/24 documented as of this encounter
--- OUTSIDE RECORDS SUMMARY | 2024-09-18 08:15 | XMS_ITS | Encounter Summary ---
Author Organization [employer] Address [address] [facility] 7t [place] [address] Care Team Providers Care Forms Examiner Name Role Phone Yarely Kruger MD Primary Care Provider [phone] Zeny Reddy MD Unavailable [phone] Reason for Visit * Reason Onset Date Comments chartprep 08/19/2024 Encounter Details Date Type Department Care Team (Late st Contact Info) Description 08/19/2024 Telephone [facility]INE [address] [place] [address] Dyan Price MA chartprep Social History Tobacco [...] documented as of this encounter Care Teams Forms Examiner Relationship Specialty Start Date End Date Yarely Kruger MD [address] [place] [address] PCP - General Family Medicine 07/23/18 Zeny Reddy MD [address] [place] [address] Orthopaedic Surgery 06/11/24 Dr. Anselmo Mcadams MD [facility] [address] [facility] [address] Ophthalmology 08/15/24 documented as of this encounter
--- OUTSIDE RECORDS SUMMARY | 2024-09-18 08:15 | XMS_ITS | Encounter Summary ---
Author Organization [employer] Address [address] [facility] 7t [place] [address] Care Team Providers Care Farmer [employer] Name Role Phone Yarely Kruger MD Primary Care Provider [phone] Zeny Reddy MD Unavailable [phone] Encounter Details Date Type Department Care Team [...] documented as of this encounter Care Teams Farmer [employer] Relationship Specialty Start Date End Date Yarely Kruger MD [address] [place] [phone] PCP - General Family Medicine 07/23/18 Zeny Reddy MD [address] [place] [address] Orthopaedic Surgery 06/11/24 Dr. Anselmo Mcadams MD [facility] [address] [facility] [address] Ophthalmology 08/15/24 documented as of this encounter
[2024-11-11 06:38] VITALS: BP 103/62; PULSE 88; RESP 18; TEMP 36.7; O2SAT 96; BMI 30.5
--- NOTE | 2024-11-11 07:35 | MHC.SHP ---
Pre-Procedural Eval Section A - 24 Hr Update-Section A only Date of Service: 11/11/24 The patient is an INPATIENT: No Changes since office visit: No Cold of Flu in the past 2 weeks, No New Medical Problems, No Changes in Medication and No Patient answered all questions The patient has been examined within 24 hours of the surgical procedure. The History & Physical has been completed within 30 days and I have reviewed it.: Yes Section B - Complete if H&P > 30 days Chief Complaint: Carpal tunnel syndrome, left upper limb Allergies: Allergies Allergy/AdvReac Type Severity Reaction Status Date / Time No Known Allergies Allergy Verified 11/11/24 06:42 Plan Diagnosis/Plan: Unchanged I have reviewed the history and physical and performed a pertinent physical examination on my patient. No changes have occurred unless specified. Time Spent With Patient Time: Total time managing care of this patient today ____ minutes.
--- NOTE | 2024-11-11 07:35 | W.PM.OPN ---
Operative Note Operative Note Date of Service: 11/11/24 Narrative: Preop diagnosis: 1. Left Carpal tunnel syndrome Postop diagnosis: same Procedure: 1. Left Carpal tunnel release Surgeon: Zeny Reddy MD Director Of Corporate Strategy: Rashawn DRUMMOND Anesthesia: local block using 1% lidocaine with epinephrine Findings: Thickened transverse carpal ligament. EBL: Less than 5 mL Specimens: None Complications: None Disposition: Brought to recovery room in stable condition Plan: Follow-up for 10-14 days for wound check and suture removal Indications: The patient is 44 years old, with left carpal tunnel syndrome that has been unresponsive to nonoperative management. The risks and benefits of operative treatment including but not limited to risk of damage to blood vessels, nerves, tendons, infection, persistent pain, persistent symptoms, or possible need for additional surgery were discussed with the patient and the patient wishes to proceed with surgery. Procedure: Once consent was obtained a local block was performed using a combination of 1% lidocaine with epinephrine. The patient was then brought back to the operating suite and placed on the operative table in supine position. The left upper extremity was prepped and draped in a standard surgical fashion. Once assured that we had a good block, a 2.0 cm longitudinal incision was made centered over the carpal tunnel. The incision was made through the skin to the subcutaneous tissues using a #15 blade. Dissection was made down to the level of the transverse carpal ligament with care being taken to protect the palmar cutaneous nerve. Once the transverse carpal ligament was clearly visualized, a longitudinal incision was made in the transverse carpal ligament 1st using a #15 blade, then using tenotomy scissors under direct visualization. Care was taken to look for and protect the motor branch of the median nerve when seen in this area. Once satisfied with our carpal tunnel release the wound was copiously irrigated with normal saline and hemostasis was obtained with a brief period of local pressure. The skin edges were reapproximated with some 5.0 nylon suture material and a sterile dressing was applied. The patient appears to have tolerated the procedure well and with no complications. All digits were well vascularized at the conclusion of the case.
[2024-11-11 08:07] VITALS: BP 114/73; PULSE 84; RESP 18; TEMP 36.6; O2SAT 97
== END 2024-11-11 08:09 | disposition home or self-care (01) ==
PROVIDERS: PCP Family Medicine; Visit Provider Orthopaedic Surgery
PROC: (CPT 64721; principal; 2024-11-11 07:30)
DX: G56.02 Carpal tunnel syndrome, left upper limb (principal); R20.0 Anesthesia of skin; M32.9 Systemic lupus erythematosus, unspecified; Z98.890 Other specified postprocedural states
CPT/HCPCS: 64721; J0171; J2003; J2004

== ENCOUNTER → 2024-11-11 06:29 | Outpatient (BNV) | payer MEDICAID, SELFPAY | PROVIDERS: PCP Family Medicine; Visit Provider Orthopaedic Surgery | DX: G56.02 Carpal tunnel syndrome, left upper limb (principal) | CPT/HCPCS: 64721 ==

== ENCOUNTER 2024-11-26 12:59 | Outpatient (AMB) | payer MEDICAID, SELFPAY ==
--- NOTE | 2024-11-26 13:03 | MHC.OFFVIS ---
Intake Visit Reasons: PO LT CTR 11/11/24 AR Intake Note: Adelaida is a 44 right hand dominant female who presents today post operatively s/p left carpal tunnel release by Dr Zeny Reddy DOS: 11/11/24. Patient reports soreness and tenderness at site of incision. Numbness and tingling has resolved. Sutures and steri strips applied. Allergies No Known Allergies Allergy (Verified 11/26/24 13:15) HPI HPI PO LT CTR 11/11/24 AR: Details: Adelaida is a 44 right hand dominant female who presents today post operatively s/p left carpal tunnel release by Dr Zeny Reddy DOS: 11/11/24. Patient reports soreness and tenderness at site of incision. Numbness and tingling has resolved. Sutures and steri strips applied. [facility] Medical History (Updated 11/26/24 @ 13:15 by PATRICK Huizar) Bilateral carpal tunnel syndrome Carpal tunnel syndrome of left wrist Lupus Surgical History History of abdominoplasty History of breast augmentation (2018) Social History Are you a primary healthcare consultant to a significant other at home: No Do you presently have visiting nurse or other home services: No Alcohol intake: current Alcohol intake frequency: holidays/special occasions only Alcohol type: hard liquor Patient Tobacco Use Status: Never used Tobacco Current occupation: right handed Assessment & Plan Assessment & Plan (1) Carpal tunnel syndrome of left wrist: Code(s): G56.02 - Carpal tunnel syndrome, left upper limb Category: Medical Plan History of Present Illness The patient is a 44-year-old female presenting for postoperative follow-up for a left carpal tunnel release performed to alleviate previous symptoms of numbness and tingling in the hands. Since the procedure, there has been a noticeable resolution of these symptoms. Currently, the patient experiences some discomfort at the incision site, marked by tightness and sensitivity, which is a typical postoperative sensitivity. There is no report of redness, or notable swelling. The patient has been adhering to surgical aftercare instructions, restricting the use of the surgical hand. Postoperative course appears uneventful with symptom improvement, however, light tactile exercises are suggested for incision desensitization. Review of Systems - Musculoskeletal: Reports incision site discomfort and tightness. Denies numbness and tingling in hands. - Integumentary: Denies swelling and redness around incision site. Systems reviewed and are negative except as per HPI and below Physical Exam Patient is alert, oriented, and in no acute distress. Neuro: Normal sensation of the tips of all digits of the left hand at this time Vascular: Cap refill brisk Pain: Some sensitivity noted to palpation of the incision site on the volar left wrist No pain with range of motion ROM: Patient was able to make a closed fist and extend all digits of the left hand fully Skin: Well approximated and well healing incision site noted on the volar left wrist No lacerations or abrasions. General: No ecchymosis, erythema, or evidence of infection. Psych: Appears grossly normal Affect normal Attitude cooperative Plan The postoperative follow-up plan focuses on patient adherence to care instructions and tactile stimulation to address incision sensitivity, promoting normal nerve response. Restrictions on submersion and weight lifting will remain in place, advancing normal activities gradually while monitoring for any signs of complication requiring intervention. Patient was informed and verbally consented to the use of an ambient scribe for clinic note documentation during this visit. Discussion Notes I discussed the ongoing management for her postoperative status following left carpal tunnel release with the patient. The patient understands the nature of the incision site sensitivity, attributing it to typical nerve recovery processes post-surgery. The importance of continuing care measures, including avoidance of submerging the hand in water and restrictions on heavy lifting, was emphasized. I advised her on tactile therapy techniques to address sensitivity and assured her these are standard postoperative sensations. Informed her of the risks of infection signs and instructed her to contact the clinic if such signs are noticed. We agreed on the current care plan with room for adjustment if her symptoms do not continue to improve. Patient Instructions - Continue to avoid under water activities such as hot tubs, baths, pools, and dishwashing for one more week. - Do not lift anything heavier than a cell phone with the affected hand for two more weeks. - Use light dressing on incision when outdoors for the next 4-5 days. - Expect SteriStrips to fall off within five days; remove them after that time if needed. - Gentle massage and tactile stimulation of incision area to desensitize sensitivity. - Monitor for signs of infection: increased redness, swelling, or discharge. - Contact the clinic if sensitivity persists or if infection signs develop. Coding Level of Care Code Global (52535) Diagnoses Carpal tunnel syndrome of left wrist G56.02
--- OUTSIDE RECORDS SUMMARY | 2024-11-26 14:10 | XMS_ITS | Encounter Summary ---
Author Organization [employer] Address [address] [facility] [address]t [place] [address] Care Team Providers Care Pass Worker Name Role Phone Saskia, Yarely JUAREZ Primary Care Provider [phone] Zeny Reddy MD Unavailable [phone] Tonya Parker NP Unavailable Encounter Details Date Type Department Care Team (Late st Contact Info) Description 09/13/2022 Orders Only [facility]INE [address] [place], [place] [phone] Nevin Serrano MD [address] [place], [place] [phone] Vision problem (Primary Dx) Social History Tobacco [...] EDT 02/21/2023 12:13 PM EDT Comment:UACC Narrative [facility] - 02/23/2023 8:33 AM EDT Escherichia coli Quant > 100,000 cfu/mL Escherichia coli: Ampicillin 4(S) Escherichia coli: Ceftriaxone <=0.25(S) Escherichia coli: Gentamicin <=1(S) Escherichia coli: Levofloxacin <=0.12(S) Escherichia coli: Nitrofurantoin <=16(S) Escherichia coli: Trimethoprim/Sulfamethoxazole <=20(S) Specimen Source: Urine clean catch Gautam Mcdonald MD LAB MICROBIOLOGY - GENERAL ORDER BONG Final Result Performing Organization Address [facility] Co de Phone Number [facility] [address] [place] [phone] * (ABNORMAL) Bacterial Vaginosis (02/20/2023 12:00 AM EDT) Trichomonas DNA Probe Negative Negative [facility] Gardnerella DNA Probe Positive(A) Negative [facility] Mary DNA Probe Positive(A) Negative [facility] 02/20/2023 02/20/2023 Gautam Mcdonald MD LAB MICROBIOLOGY - GENERAL ORDER BONG Final Result Performing Organization Address [facility] Co de Phone Number [facility] [address] [place] [phone] documented in this encounter Visit Diagnoses Diagnosis Vision problem- Primary Problems with sight documented in this encounter Care Teams Pass Worker Relationship Specialty Start Date End Date Yarely Kruger MD [address] [place] [phone] PCP - General Family Medicine 07/23/18 Zeny Reddy MD [address] [place] [address] Orthopaedic Surgery 06/11/24 Tonya Parker NP [address] [place] [address] Urology 08/26/24 Dr. Anselmo Mcadams MD [facility] [address] [facility] [address] Ophthalmology 08/15/24 documented as of this encounter
--- OUTSIDE RECORDS SUMMARY | 2024-11-26 14:10 | XMS_ITS | Encounter Summary ---
Author Organization [employer] Address [address] [place] [address] [address] [place] [address] Care Team Providers Care Tonguer Name Role Phone Yarely Kruger MD Primary Care Provider [phone] Zeny Reddy MD Unavailable [phone] Tonya Parker NP Unavailable Encounter Details Date Type Department Care Team (Late st Contact Info) Description 03/14/2023 Orders Only [facility] MED[facility]INE [address] [place] [phone] Yarely Kruger MD [address] [place], [place] [phone] Social History Tobacco Use Types Packs/Day Years [...] documented as of this encounter Care Teams Tonguer Relationship Specialty Start Date End Date Yarely Kruger MD [address] [place] [address] PCP - General Family Medicine 07/23/18 Zeny Reddy MD [address] [place] [address] Orthopaedic Surgery 06/11/24 Tonya Parker NP [address] [place] [address] Urology 08/26/24 Dr. Anselmo Mcadams MD [facility] [address] [facility] [address] Ophthalmology 08/15/24 documented as of this encounter
--- OUTSIDE RECORDS SUMMARY | 2024-11-26 14:10 | XMS_ITS | Encounter Summary ---
Author Organization [employer] Address [address] [facility] 7t [place] [address] Care Team Providers Care Broaching Machine Set Up Operator Name Role Phone Yarely Kruger MD Primary Care Provider [phone] Zeny Reddy MD Unavailable [phone] Tonya Parker NP Unavailable Encounter Details Date Type Department Care Team (Late st Contact Info) Description 08/28/2022 Abstract [facility] MEDICINE [address] [place], [place] [phone] Yarely Kruger MD [address] [place], [place] [phone] Social History Tobacco Use Types Packs/Day Years [...] on filedocumented in this encounter Care Teams Broaching Machine Set Up Operator Relationship Specialty Start Date End Date Yarely Kruger MD [address] [place] [address] PCP - General Family Medicine 07/23/18 Zeny Reddy MD [address] [place] [address] Orthopaedic Surgery 06/11/24 Tonya Parker NP [address] [place] [address] Urology 08/26/24 Dr. Anselmo Mcadams MD [facility] [address] [facility] [address] Ophthalmology 08/15/24 documented as of this encounter
--- OUTSIDE RECORDS SUMMARY | 2024-11-26 14:10 | XMS_ITS | Encounter Summary ---
Author Organization [employer] Address [address] [facility] 7t [place] [address] Care Team Providers Care Backing In Machine Tender Name Role Phone Yarely Kruger MD Primary Care Provider [phone] Zeny Reddy MD Unavailable [phone] Tonya Parker NP Unavailable Encounter Details Date Type Department Care Team (Late st Contact Info) Description 05/09/2023 Abstract [facility] MEDICINE [address] [place], [place] [phone] Yarely Kruger MD [address] [place], [place] [phone] Social History Tobacco Use Types Packs/Day Years [...] documented as of this encounter Care Teams Backing In Machine Tender Relationship Specialty Start Date End Date Yarely Kruger MD [address] [place] [phone] PCP - General Family Medicine 07/23/18 Zeny Reddy MD [address] [place] [address] Orthopaedic Surgery 06/11/24 Tonya Parker NP [address] [place] [address] Urology 08/26/24 Dr. Anselmo Mcadams MD [facility] [address] [facility] [address] Ophthalmology 08/15/24 documented as of this encounter
--- OUTSIDE RECORDS SUMMARY | 2024-11-26 14:10 | XMS_ITS | Encounter Summary ---
Author Organization [employer] Address [address] [facility] 7t [place] [address] Care Team Providers Care Dump Grader Name Role Phone Yarely Kruger MD Primary Care Provider [phone] Zeny Reddy MD Unavailable [phone] Tonya Parker NP Unavailable Encounter Details Date Type Department Care Team (Late st Contact Info) Description 12/21/2023 Orders Only [facility] [address] [place], [place] [phone] Yarely Kruger MD [address] [place], [place] [phone] Acute cystitis without hematuria (Primary Dx) Social [...] t he electric, gas, oil or water [employer] threatened to shut off services in your [...] EDT Narrative 01/15/2024 6:12 PM EDT ? [facility] ?[address] ?[place] [address] ?XRay Report ? Signed ? Patient: Adelaida Husain ?MR#: [id number] ?? [id number] ? : 1980 ?Acct:[id number] ? Age/Sex: 43 / F ?ADM Date: 01/15/24 ? Loc: HO.ED ? Attending Dr: ? Ordering Physician: Madeline Duran NP ?? Date of Service: 01/15/24 ?? Procedure(s): XR thoracic spine 2V ?? Accession Number(s): [id number] ? cc: Yarely Kruger MD; Renee,Madeline LIVING SKILLS ADVISOR ? EXAMINATION: ?? XR THORACOLUMBAR SPINE ? [...] by Meghana Haney MD in OV> ? 01/14/ 1807 ? DD/DT: 01/14/ 1703 ? TD/TT: ? Nutritional Services Cook: LIZ ? Procedure Note Donotsamirter, Image - 01/15/2024 [facility] [address] [place] [address] XRay Report Signed Patient: Adelaida Husain BMR#: [id number] : 1980Acct:[id number] Age/Sex: 43 / FADM Date: 01/15/24 Loc: HO.ED Attending Dr: Ordering Physician: Madeline Duran NP Date of Service: 01/15/24 Procedure(s): XR thoracic spine 2V Accession Number(s): [id number] cc: Yarely Kruger MD; Madeline Duran NP [...] in OV> 01/15/24 1807 DD/ 1703 TD/TT: Nutritional Services Cook: LIZ [facility] External Provider IMG XR PROCEDURES Final Result documented in this encounter Visit Diagnoses Diagnosis Acute cystitis without hematuria- Primary documented in this encounter Additional Health Concerns Assessment Noted Time PHQ-9 Depression Total Score: 0 03/05/20 23 9:12 AM EDT documented as of this encounter Care Teams Dump Grader Relationship Specialty Start Date End Date Yarely Kruger MD [address] [place] [address] PCP - General Family Medicine 07/23/18 Zeny Reddy MD [address] [place] [address] Orthopaedic Surgery 06/11/24 Tonya Parker NP [address] [place] [address] Urology 08/26/24 Dr. Anselmo Mcadams MD [facility] [address] [facility] [address] Ophthalmology 08/15/24 documented as of this encounter
--- OUTSIDE RECORDS SUMMARY | 2024-11-26 14:10 | XMS_ITS | Clinical Summary ---
Author Organization [employer] Address [address] [facility] 7t [place] [address] Care Team Providers Care Telegraph And Teletype Operator Name Role Phone Yarely Kruger MD Primary Care Provider [phone] Zeny Reddy MD Unavailable Tonya Parker NP Unavailable Allergies No known [...] incontinence 07/20/2023 Overview (04/14/2024): Seen by urologyJeremie, MARKETING COMPLIANCE MANAGER : US 12/03/23 BLADDER: Well distended and [...] Plan (12/20/2023 10:19 AM EDT): Seen by urologyJeremie, JAQUELINE : US 12/03/23 BLADDER: Well distended and [...] every [address] Mcadams at [facility] in [place]. 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 She was seen on 08/15/[address] Mcadams Assessment & Plan (07/20/2023 9:00 AM EST): Followed every [address] Mcadams at [facility] in [place]. The patient has optic nerve pallor, vascular [...] every [address] Mcadams at [facility] in [place]. The patient has optic nerve pallor, vascular [...] routine opthalmic exam 2005. work up with patrol commander Dr. 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 Initially treated with methotrexate and IVIG. Failed MTX and Imuran. Previously failed tapering IV-IG below 20g in 2009. Stopped IVIG 01/2015 as no inflammation noted. Stopped prednisone oral 07/2018. Seen by Dr. Martinez Mcadams 07/28/2019 at [facility] [phone]. Inflammation and worsening vasculitis seen on exam [...] Mcadams -Continue with Dr. Luis [facility] optometry last seen 11/2022 we scheduled her for visual field on 02/2023. 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 Discovered on routine opthalmic exam 2005. work up with patrol commander Dr. 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 Initially treated with methotrexate and IVIG. Failed MTX and Imuran. Previously failed tapering IV-IG below 20g in 2009. Stopped IVIG 01/2015 as no inflammation noted. Stopped prednisone oral 07/2018. Seen by Dr. Martinez Mcadams 07/28/2019 at [facility] [phone]. Inflammation and worsening vasculitis seen on exam [...] Mcadams -Continue with Dr. Luis [facility] optometry last seen 11/2022 we scheduled her for visual field on 02/2023. 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 Discovered on routine opthalmic exam 2005. work up with patrol commander Dr. 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 Initially treated with methotrexate and IVIG. Failed MTX and Imuran. Previously failed tapering IV-IG below 20g in 2009. Stopped IVIG 01/2015 as no inflammation noted. Stopped prednisone oral 07/2018. Seen by Dr. Martinez Mcadams 07/28/2019 at [facility] [phone]. Inflammation and worsening vasculitis seen on exam [...] Mcadams -Continue with Dr. Luis [facility] optometry last seen 11/2022 we scheduled her for visual field on 02/2023. 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 Discovered on routine opthalmic exam 2005. work up with patrol commander Dr. 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 Initially treated with methotrexate and IVIG. Failed MTX and Imuran. Previously failed tapering IV-IG below 20g in 2009. Stopped IVIG 01/2015 as no inflammation noted. Stopped prednisone oral 07/2018. Seen by Dr. Martinez Mcadams 07/28/2019 at [facility] [phone]. Inflammation and worsening vasculitis seen on exam [...] Mcadams -Continue with Dr. Luis [facility] optometry last seen 11/2022 we scheduled [...] Type Department Care Team Description 10/03/2024 Population Health Risk Score [facility] (C3) Department [address] [phone] Provider, Population Health Generic 09/04/2024 Orders Only [facility] MEDICINE [address] [place] [address] Yarely Kruger MD from Last 3 Months Immunizations Name Administration [...] housing situation today? I have gregyovani cifuentes 08/20/[address] you [...] the past 12 months, has t he [employer], [employer], oil or water PAK threatened to shut off services in your [...] IMPLANTS EVAN Routine 09/04/2024 3:15 PM EST HIV 1/2 ANTIGEN/ANTIBODY, FOURTH GENERATION W/RFL Routine [...] EST Narrative 09/13/2024 9:49 AM EST ? [facility] ? [address] ?[place] [address] ? Mammography Report ? Signed ? Patient: Adelaida Husain B ?MR#: [id number] ?? [id number] ? : 1980 ?Acct:[id number] ? Age/Sex: 44 / F ?ADM Date: 09/04/24 ? Loc: HO.MAMMO ? Attending Dr: Yarely Kruger MD ? Ordering Physician: Yarely Kruger MD ?Results: 2B ?? enign Findings ? Date of Service: 09/04/24 ?Follow Up: 1 Year From Orig ?? inal Mammogram ? Procedure(s): MM tomosynthesis screen imp BI ?? Accession Number(s): [id number] ? cc: Yarely Kruger MD ? EXAMINATION: [...] DD/ 1515 ? TD/TT: 09/04/24 1530 ? Water Sander: ? Procedure Note Joey, Image - 09/13/2024 [facility] [address] [place] [address] Mammography Report Signed Patient: Adelaida Husain BMR#: [id number] : 1980Acct:[id number] Age/Sex: 44 / FADM Date: 09/04/24 Loc: TRINY Attending Dr: Yarely Kruger MD Ordering Physician: Yarely Kruger MDResults: 2B enign Findings Date of Service: 09/04/24Follow Up: 1 Year From Orig inal Mammogram Procedure(s): MM tomosynthesis screen imp BI Accession Number(s): [id number] cc: Yarely Kruger MD EXAMINATION: MM SCREENING [...] their next mammogram. Electronically signed by: Shira Niec DO 09/13/2024 09:46 AM EST Dictated By: Shira Nice DO Signed By: <Electronically signed by Shira Nice DO in OV> 09/13/24 0946 DD/ 1515 TD/TT: 09/04/24 1530 Water Sander: Yarely Kruger MD [facility] BI PROCEDURES Edited R esult - Final * HIV-1/2 Antigen and Antibodies, Fourth Generation, with Reflexes (07/20/2023 11:16 AM EST) HIV AB/AG Nonreactive Nonreactive [facility] Comment:HIV-1 p24 Ag and/or HIV-1/HIV-2 Ab not detected.A test result that is nonreactive does not exclude thepossibility of exposure to or infection with HIV-1 and/orHIV-2. Nonreactive results in this assay for individualswith prior exposure to HIV-1 and/or HIV-2 may be due toantigen and antibody levels that are below the limit ofdetection of this assay.The [employer] HIV Ag/Ab Combo assay result andsupplemental assay results should be interpreted inconjunction with the patient's clinical presentation,history and other laboratory results. If the results areinconsistent with clinical evidence, additional testing issuggested to confirm the result. Blood Venous blood specimen / Unknown 07/20/2023 11:16 AM EST 07/20/2023 1:16 PM EST Yarely Kruger MD LAB BLOOD ORDERABLES Final Result Performing Organization Address [facility] Co de Phone Number [facility] [address] [place] [address] [phone] * HPV mRNA E6/E7 w/Reflex to HPV Genotypes 16, 18/45 (07/20/2023 11:00 AM EST) HPV nRNA E6/E7 Not Detected Not Detected [facility] Comment:Methodology: Transcr iption-Mediated AmplificationThis assay detects E6/E7 viral messenger RNA (mRNA) from 14high-risk HPV types (16,18,31,33,35,39,45,51,52,56,58,59,66,68).Cervical sources are required for HPV testing.If a vaginal source from a patient who has had atotal hysterectomy with removal of cervix wassubmitted, please contact the testing laboratoryfor alternative testing options.For additional information, please refer tohttp://education.[employer]/faq/TAY539g5(This link if provided for information/educational purposes only.)THIS TEST WAS PERFORMED AT:[employer] [place] [phone] TOMPKINS MD HPV mRNA E6/E7 [facility] HPV 16 RNA [facility] HPV 18/45 RNA [facility] 07/20/2023 11:0 0 AM EST 07/24/2023 8:00 AM EST Yarely Kruger MD LAB CYTOLOGY ORDERABLES Fi nal Result Performing Organization Address City/[facility]/ZIP Co de Phone Number [facility] [address] [place] [address] [phone] * Pap Smear (07/20/2023 11:00 AM EST) 07/20/2023 11:0 0 AM EST 07/24/2023 8:00 AM EST Narrative [facility] - 07/26/2023 12:54 PM EST ----- ------- Name: Adelaida Husain ? Age/Sex: 43/F ? : 1980 Unit#: [id number] ?? Attend Dr: Yarely Kruger MD ?Re07/20/23 ?Status: DEP REF ? Location: HO.HHCL ? Disch: ? ----- ------- SPEC : [id number] ? RECD: 07/24/23-799 ? STATUS: ??SOUT ? REQ NUM: [id number] ? SYDNIE: 07/20/23-1099 ? SUBM DR: Yarely Kruger MD ? [...] 66, 68) ?? HPV testing performed by [facility], [place], [place]. ??See reference laboratory ?? portion of the EMR for entire report. ?Clinical Information LMP: Unknown date Previous PAP test: 2018, NILM, HPV negative ? Material Received ?? ThinPrep-Cervical ----- ------- Signed (signature on file) ESTEE Garcia (ASCP) 07/26/23 1254 ? ----- ------- ? END OF REPORT ? Yarely Kruger MD LAB CYTOLOGY ORDERABLES Fi nal Result [facility] [address] [place] [phone] * Hepatitis C Antibody (04/19/2018) Pathologist [facility] Hepatitis C Antibody Nonreactive Blood Historical Provider HEALTH MAINTENANCE Final Result from Last 3 Months or Most Recently Relevant to Health Maintenance Insurance [employer] Advance Directives Documents on File Type Date Recorded Patient Bull Chain Operator Expl anation Advance Directives and Living Will 12/20/2023 Health Care Proxy 12/20/23 Care Teams Telegraph And Teletype Operator Relationship Specialty Start Date End Date [place], MD Yarely [address] [place] [address] PCP - General Family Medicine 07/23/18 Zeny Reddy MD [address] [place] [address] Orthopaedic Surgery 06/11/24 Tonya Parker NP [address] [place] [address] Urology 08/26/24 Dr. Anselmo Mcadams MD [facility] [address] [facility] [address] Ophthalmology 08/15/24
--- OUTSIDE RECORDS SUMMARY | 2024-11-26 14:10 | XMS_ITS | Encounter Summary ---
Author Organization [employer] Address [address] [facility] 7t [place] [address] Care Team Providers Care Jackerman Name Role Phone Yarely Kruger MD Primary Care Provider [phone] Zeny Reddy MD Unavailable [phone] Tonya Parker NP Unavailable Reason for Visit * Reason Onset Date Comments Referral 09/08/2022 Encounter Details Date Type Department Care Team (Late st Contact Info) Description 09/08/[address] [facility] [address] [place], [place] [phone] Yarely Kruger MD [address] [place], [place] [phone] Referral Social History Tobacco Use Types Packs/Day [...] an referral to be seen at the [facility] Please contact pt at [phone] documented in this encounter Plan of Treatment Not on file documented as of this encounter Visit Diagnoses Not on filedocumented in this encounter Care Teams Jackerman Relationship Specialty Start Date End Date Yarely Krguer MD [address] [place] [phone] PCP - General Family Medicine 07/23/18 Zeny Reddy MD [address] [place] [address] Orthopaedic Surgery 06/11/24 Tonya Parker NP [address] [place] [address] Urology 08/26/24 Dr. Anselmo Mcadams MD [facility] [address] [facility] [address] Ophthalmology 08/15/24 documented as of this encounter
== END 2024-11-26 13:22 | disposition home or self-care (01) ==
LOC: HO.HOS 13:00
PROVIDERS: PCP Family Medicine
DX: G56.02 Carpal tunnel syndrome, left upper limb (principal)
CPT/HCPCS: 99024

== ENCOUNTER → 2024-11-26 12:59 | Outpatient (BNVA) | payer MEDICAID, SELFPAY | PROVIDERS: PCP Family Medicine | DX: Z48.811 Encounter for surgical aftercare following surgery on the nervous system (principal); Z98.890 Other specified postprocedural states | CPT/HCPCS: 99212 ==

== ENCOUNTER 2025-03-27 07:13 | Emergency (ER) | payer OTHER, SELFPAY ==
[2025-03-27 07:22] VITALS: BP 112/72; PULSE 68; RESP 18; TEMP 36.6; O2SAT 97; BMI 27.6
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
[2025-03-27 07:36] VITALS: BP 111/78; PULSE 85; RESP 16; O2SAT 98
[2025-03-27 07:51] VITALS: BP 111/78; PULSE 85; RESP 16; TEMP 36.8; O2SAT 98
--- OUTSIDE RECORDS SUMMARY | 2025-03-27 07:53 | XMS_ITS | Clinical Summary ---
Author Organization [facility] Address [address] [place] [phone] Phone Care Team Providers Care Geomorphologist Name Role Phone Yarely Kruger MD Primary Care [facility] Allergies No known active allergies Medications No known medications Social History Tobacco Use Types Packs/Day Years Used Date Smoking Tobacco: Never Smokeless Tobacco: Never Alcohol Use Standard Drinks/Week Comments Not Currently 3 (1 standard drink = 0.6 oz pur e alcohol) occasional 1-2 drinks Education Answer Date Recorded Are you interested in more education? Not on matilde e 08/15/2024 Are you concerned about learning? Not on file 08/15/2024 No 08/15/2024 No 08/15/2024 Digital Access Answer Date Recorded No 08/15/2024 No 08/15/2024 Reliable internet access at home? Not on file 08/15/2024 Device with a working camera? Not on file Comments No Sex and Gender Information Value Date Recorded Sex Assigned at Not on file Legal Sex Female 11:12 AM EST Gender Identity Not on file Sexual Orientation Not on file Last Filed Vital Signs Vital Sign Reading Time Taken Comments Blood Pressure 118/61 09/05/2024 5:40 PM EST Pulse 76 09/05/2024 5:40 PM EST Temperature 36.6 C (97.8 F) 09/05/2024 5:26 PM EST Respiratory Rate 16 09/05/2024 5:40 PM EST Oxygen Saturation 98% 09/05/2024 5:40 PM EST Inhaled Oxygen Concentration - - Weight 65.8 kg (145 lb) 09/05/2024 4:34 PM EST Height 149.9 cm (4' 11 ) 09/05/2024 4:34 PM EST Body Mass Index 29.29 09/05/2024 4:34 PM EST Plan of Treatment Health Maintenance Due Date Last Done Comments DEPRESSION SCREENING 1993 HEPATITIS C SCREENING 1999 HIV ONE-TIME SCREENING (18-6 5 YEARS) 1999 SCREENING FOR DIABETES 2016 MAMMOGRAM 2021 COVID-19 VACCINE ( - 2023-2 5 season) 2024 PAP SMEAR 07/20/2026 07/20/2023 Adult Td,Tdap Booster 05/05/2032 05/05/2022 , 02/09/2016 SMOKING STATUS SCREENING (On ce After 26 Yrs) Completed 09/05/2024 HEPATITIS A VACCINES Aged Out No long er eligible based on patient's age to complete this topic HIB VACCINES Aged Out No longer eligi ble based on patient's age to complete this topic MENINGOCOCCAL VACCINES (ACWY) Aged Out No longer eligible based on patient's age to complete this topic MENINGOCOCCAL VACCINES (B) Aged Out N o longer eligible based on patient's age to complete this topic PNEUMOCOCCAL VACCINES (0-49 years) Aged Out No longer eligible b ased on patient's age to complete this topic Medical Devices Implanted Type Area Developer Support Engineer Device Identifier Shelf Expiration Date Model / Serial / Lot Breast Insurance [facility] [employer] [facility] [employer] [employer] Care Teams Geomorphologist Relationship Specialty Start Date End Date Saskia, Yarely Travis MD [address] [place] [phone] PCP - General Family Medicine 08/15/24 Additional Source Comments The information contained in this document represents components of the legal health record. It is not the complete legal health record.[facility]
--- OUTSIDE RECORDS SUMMARY | 2025-03-27 07:53 | XMS_ITS | Encounter Summary ---
Author Organization [employer] Address [address] [facility] 7t [place] [address] Care Team Providers Care Production Control Expert Name Role Phone Yarely Kruger MD Primary Care Provider [phone] Zeny Reddy MD Unavailable [phone] Tonya Parker NP Unavailable Encounter Details Date Type Department Care Team (Late st Contact Info) Description 08/28/2022 Abstract [facility] [address] [place], [place] [phone] Yarely Kruger MD [address] [place], [place] [phone] Social History Tobacco Use Types Packs/Day Years [...] on filedocumented in this encounter Care Teams Production Control Expert Relationship Specialty Start Date End Date Yarely Kruger MD [address] [place] [address] PCP - General Family Medicine 07/23/18 Zeny Reddy MD [address] [place] [address] Orthopaedic Surgery 06/11/24 Tonya Parker NP [address] [place] [address] Urology 08/26/24 Dr. Anselmo Mcadams MD [facility] [address] [facility] [address] Ophthalmology 08/15/24 documented as of this encounter
--- OUTSIDE RECORDS SUMMARY | 2025-03-27 07:53 | XMS_ITS | Encounter Summary ---
Author Organization [employer] Address [address] [facility] 7t [place] [address] Care Team Providers Care Power Transformer Repair Supervisor Name Role Phone Yarely Kruger MD Primary Care Provider [phone]- [phone] Zeny Reddy MD Unavailable [phone] Tonya Parker NP Unavailable Encounter Details Date Type Department Care Team (Late st Contact Info) Description 05/09/2023 Abstract [facility] [address] [place], [place] [phone] Yarely Kruger MD [address] [place], [place] [phone] Social History Tobacco Use Types Packs/Day Years [...] documented as of this encounter Care Teams Power Transformer Repair Supervisor Relationship Specialty Start Date End Date Yarely Kruger MD [address] [place] [address] PCP - General Family Medicine 07/23/18 Zeny Reddy MD [address] [place] [address] Orthopaedic Surgery 06/11/24 Tonya Parker NP [address] [place] [address] Urology 08/26/24 Dr. Anselmo Mcadams MD [facility] [address] [facility] [address] Ophthalmology 08/15/24 documented as of this encounter
--- OUTSIDE RECORDS SUMMARY | 2025-03-27 07:53 | XMS_ITS | Encounter Summary ---
Author Organization [facility] Address [address] [place] [address] [place] [phone] Phone Care Team Providers Care Supervisor Edging Name Role Phone Yarely Kruger MD Primary Care [facility] Encounter Details Date Type Department Care Team (Late st Contact Info) Description 09/05/2024 Procedure Pass [facility]UNILDA LW PERIOP DEPT [address] [place] [address] Social History Tobacco Use Types Packs/Day Years [...] on file Sexual Orientation Not on file documented as of this encounter Plan of Treatment Not on file documented as of this encounter Visit Diagnoses Not on filedocumented in this encounter Care Teams Supervisor Edging Relationship Specialty Start Date End Date Yarely Kruger MD [address] [place] [address] [phone] PCP - General Family Medicine 08/15/24 documented as of this encounter Additional Source Comments The information contained in this document represents components of the legal health record. It is not the complete legal health record.[facility]
--- OUTSIDE RECORDS SUMMARY | 2025-03-27 07:53 | XMS_ITS | Encounter Summary ---
Author Organization [employer] Address [address] [place] [address] 7t [place] [address] Care Team Providers Care Cad Application Support Specialist Name Role Phone Yarely Kruger MD Primary Care Provider [phone]- [phone] Zeny Reddy MD Unavailable [phone] Tonya Parker NP Unavailable Reason for Visit * Reason Onset Date Comments Referral 09/08/2022 Encounter Details Date Type Department Care Team (Late st Contact Info) Description 09/08/[address] [facility] [address] [place], [place] [phone] Yarely Kruger MD [address] [place], [place] [phone] Referral Social History Tobacco Use Types Packs/Day [...] an referral to be seen at the [facility] Please contact pt at [phone] documented in this encounter Plan of Treatment Not on file documented as of this encounter Visit Diagnoses Not on filedocumented in this encounter Care Teams Cad Application Support Specialist Relationship Specialty Start Date End Date Yarely Kruger MD [address] [place] [address] PCP - General Family Medicine 07/23/18 Zeny Reddy MD [address] [place] [address] Orthopaedic Surgery 06/11/24 Tonya Parker NP [address] [place] [address] Urology 08/26/24 Dr. Anselmo Mcadams MD [facility] [address] [facility] [address] Ophthalmology 08/15/24 documented as of this encounter
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
--- OUTSIDE RECORDS SUMMARY | 2025-03-27 07:53 | XMS_ITS | Clinical Summary ---
Author Organization [employer] Address [address] [facility] 7t [place] [address] Care Team Providers Care Core Sticker Name Role Phone Saskia Yarely JUAREZ Primary Care Provider [phone]- [phone] Zeny Reddy MD Unavailable [phone] Tonya Parker NP Unavailable Allergies No known active allergies Medications LORazepam (Ativan) 0.5 MG tabletIndicatio ns:Fear of flying Take 1 tab po daily 1 hour before flying , prn anxiety may repeat x 1 [address] with the medication. 6 tablet 01/28/2025 Active Active Problems Problem Noted Date Diagnosed Date [...] 07/20/2023 Overview (04/14/2024): Seen by urology, Jeremie Parker, PRECISION GRINDER EXTERNAL : US 12/03/23 BLADDER: Well distended and [...] AM EDT): Seen by urology, Jeremie Parker, PRECISION GRINDER EXTERNAL : US 12/03/23 BLADDER: Well distended and [...] every [address] Mcadams at [facility] in [place]. 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 She was seen on 08/15/[address] Mcadams Assessment & Plan (07/20/2023 9:00 AM EST): Followed every [address] Mcadams at [facility] in [place]. The patient has optic nerve pallor, vascular [...] every [address] Mcadams at [facility] in [place]. The patient has optic nerve pallor, vascular [...] routine opthalmic exam 2005. work up with solution analyst Dr. 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 Initially treated with methotrexate and IVIG. Failed MTX and Imuran. Previously failed tapering IV-IG below 20g in 2009. Stopped IVIG 01/2015 as no inflammation noted. Stopped prednisone oral 07/2018. Seen by Dr. Martinez Mcadams 07/28/2019 at [facility] [phone]. Inflammation and worsening vasculitis seen on exam [...] as Dr. Mcadams -Continue with Dr. Luis [facility] optometry last seen 11/2022 we scheduled her for visual field on 02/2023. 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 Discovered on routine opthalmic exam 2005. work up with solution analyst Dr. 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 Initially treated with methotrexate and IVIG. Failed MTX and Imuran. Previously failed tapering IV-IG below 20g in 2009. Stopped IVIG 01/2015 as no inflammation noted. Stopped prednisone oral 07/2018. Seen by Dr. Martinez Mcadams 07/28/2019 at [facility] [phone]. Inflammation and worsening vasculitis seen on exam [...] as Dr. Mcadams -Continue with Dr. Luis [facility] optometry last seen 11/2022 we scheduled her for visual field on 02/2023. 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 Discovered on routine opthalmic exam 2005. work up with solution analyst Dr. 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 Initially treated with methotrexate and IVIG. Failed MTX and Imuran. Previously failed tapering IV-IG below 20g in 2009. Stopped IVIG 01/2015 as no inflammation noted. Stopped prednisone oral 07/2018. Seen by Dr. Martinez Mcadams 07/28/2019 at [facility] [phone]. Inflammation and worsening vasculitis seen on exam [...] as Dr. Mcadams -Continue with Dr. Luis [facility] optometry last seen 11/2022 we scheduled her for visual field on 02/2023. 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 Discovered on routine opthalmic exam 2005. work up with solution analyst Dr. 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 Initially treated with methotrexate and IVIG. Failed MTX and Imuran. Previously failed tapering IV-IG below 20g in 2009. Stopped IVIG 01/2015 as no inflammation noted. Stopped prednisone oral 07/2018. Seen by Dr. Martinez Mcadams 07/28/2019 at [facility] [phone]. Inflammation and worsening vasculitis seen on exam [...] as Dr. Mcadams -Continue with Dr. Luis [facility] optometry last seen 11/2022 we scheduled [...] for work given Bacterial vaginosis 12/20/2023 08/20/19 Overview (12/20/2023): Urinalysis on 12/18/23 was normal [...] Encounters Date Type Department Care Team Description 02/06/2025 11:00 AM EDT Office Visit [facility] [address] [place] [address] Marcie Luis, OD Presbyopia of both eyes (Primary Dx) 01/28/2025 Orders Only [facility] [address] [place] [address] Yarely Kruger MD Fear of flying 01/28/2025 Orders Only [facility] [address] [place] [address] Yarely Kruger MD Fear of flying (Primary Dx) 01/26/2025 Telephone [facility] [address] [place] [address] Yarely Kruger MD Medication Question 01/02/2025 11:00 AM EDT Office Visit [facility] [address] [place] [address] Marcie Luis, OD 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) (Primary Dx); Epiretinal membrane (ERM) of both eyes; Pseudophakia of both eyes; H/O vitrectomy; Presbyopia of both eyes 01/02/2025 Travel from Last 3 Months Immunizations Immunization Administration Dates Next Due Hep B, adult [...] 71 08/20/2024 1:35 PM EST Temperature 36.1 C (96.9 F) 08/20/2024 1:35 PM EST Respiratory Rate 20 08/20/2024 1:35 PM EST Oxygen Saturation 97% 08/20/2024 1:35 PM EST Inhaled Oxygen Concentration - - Weight 67.9 kg (149 lb 12.8 oz) 08/20/2024 1:35 PM EST Height 149.9 cm (4' 11 ) 08/20/2024 1:35 PM EST Body Mass Index 30.26 08/20/2024 1:35 PM EST Plan of Treatment Health Maintenance Due Date Last Done Comments Disability Screening 1980 Family Planning (PISQ) 1996 HPV Vaccines (1 - 3-dose series) 1996 COVID-19 Vaccine (3 - season) 2025 08/10/2021, 07/11/2021 Influenza Vaccine (#1) 2025 Alcohol/Substance Use Screening 08/20/2025 08/20/2024 Depression Screening 08/20/2025 08/20/2024, 08/20/19 SDOH Screening 08/20/2025 08/20/2024 Tobacco Screening 01/12/2026 01/12/2025 Mammogram 09/04/2026 09/04/2024, 02/2024, 08/30/2023, Additional history exists Cervical Cancer [...] patient's age to complete this topic Meningococcal B Vaccine Aged Out No l onger eligible based on patient's age to complete this topic Meningococcal Vaccine Aged Out No sera rita eligible based on patient's age to complete this topic Pneumococcal Vaccine: Pediatrics (0 to 5 Years) and At-Risk Patients (6 to 49) Years Aged Out No longer eligible based on patient's age to complete this topic RSV under 20 months Aged Out No longe r eligible based on patient's age to complete this topic Rotavirus Vaccines Aged Out No longer eligible based on patient's age to complete this topic Procedures Procedure Name Priority Date/Time Associated Diagnosis Comments FUNDUS PHOTOS - OU - BOTH EYES Routine 01/02/2025 11:00 AM EDT 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 Right Eye Progression has been stable. Disc findings include (Cup-to-disc ratio (C/D): 0.1/0.1, optic nerve pallor 360 degrees, no neovascularization of the disc (NVD), peripapillary atrophy 360 degrees extending along arcades). Macula findings include (Perifoveal epiretinal membrane (ERM), no obvious CME/SRF). Vessel findings include (Vascular sheathing of vessels throughout the posterior pole). Periphery findings include normal observations (No NVE). Left Eye Progression has been stable. Disc findings include (Cup-to-disc ratio (C/D): 0.1/0.1, optic nerve pallor 360 degrees, no neovascularization of the disc (NVD), peripapillary atrophy 360 degrees extending along arcades). Macula findings include (Perifoveal epiretinal membrane (ERM), no obvious CME/SRF). Vessel findings include (Vascular sheathing of vessels throughout the posterior pole). Periphery findings include normal observations (No NVE). Notes Assessment and Plan: Stable findings compared to 2022 photos. Patient will continue her regular appointments with her substance abuse counselor in [place] and with her other specialists as scheduled. Will see her here annually for updated refractions. us Marcie Luis OD OPHTH PHOTOGRAPHY Final Resul t * BI Mammogram Screen w/ Donnell w/ Implants Evan (09/04/2024 3:15 PM EST) Anatomical Region Laterality Modality Mammography 09/04/2024 3:15 PM EST Narrative 09/13/2024 9:49 AM EST [facility] [address] [place] [address] Mammography Report Signed Patient: Adelaida Husain MR#: [id number] : 1980 Acct:[id number] Age/Sex: 44 / F ADM Date: 09/04/24 Loc: HO.MAMMO Attending Dr: Yarely Kruger MD Ordering Physician: Yarely Kruger MD Results: 2B enign Findings Date of Service: 09/04/24 Follow Up: 1 Year From [facility] ina Mammogram Procedure(s): MM tomosynthesis screen [facility] Accession Number(s): [id number] cc: Yarely Kruger MD EXAMINATION: MM SCREENING [...] 09/13/24 0946 DD/ 1515 TD/TT: 09/04/24 1530 Mine Shifter: Procedure Note Donotuseinterpreter, Image - 09/13/2024 [facility] [address] [place] [address] Mammography Report Signed Patient: Adelaida Husain BMR#: [id number] : 1980Acct:[id number] Age/Sex: 44 / FADM Date: 09/04/24 Loc: HO.MAMMO Attending Dr: Yarely Kruger MD Ordering Physician: Yarely Kruger MDResults: 2B enign Findings Date of Service: 09/04/24Follow Up: 1 Year From Orig inal Mammogram Procedure(s): MM tomosynthesis screen imp BI Accession Number(s): [id number] cc: Yarely Kruger MD EXAMINATION: MM SCREENING [...] 09/13/24 0946 DD/ 1515 TD/TT: 09/04/24 1530 Mine Shifter: Yarely Kruger MD [facility] BI PROCEDURES Edited R esult - Final * HIV-1/2 Antigen and Antibodies, Fourth Generation, with Reflexes (07/20/2023 11:16 AM EST) HIV AB/AG Nonreactive Nonreactive [facility] Comment:HIV-1 p24 Ag and/or HIV-1/HIV-2 Ab not detected.A test result that is nonreactive does not exclude thepossibility of exposure to or infection with HIV-1 and/orHIV-2. Nonreactive results in this assay for individualswith prior exposure to HIV-1 and/or HIV-2 may be due toantigen and antibody levels that are below the limit ofdetection of this assay.The [employer] HIV Ag/Ab Combo assay result andsupplemental assay results should be interpreted inconjunction with the patient's clinical presentation,history and other laboratory results. If the results areinconsistent with clinical evidence, additional testing issuggested to confirm the result. Blood Venous blood specimen / Unknown 07/20/2023 11:16 AM EST 07/20/2023 1:16 PM EST Yarely Kruger MD LAB BLOOD ORDERABLES Final Result [facility] [address] [place] [address] [phone] * HPV mRNA E6/E7 w/Reflex to HPV Genotypes 16, 18/45 (07/20/2023 11:00 AM EST) HPV nRNA E6/E7 Not Detected Not Detected [facility] Comment:Methodology: Transcr iption-Mediated AmplificationThis assay detects E6/E7 viral messenger RNA (mRNA) from 14high-risk HPV types (16,18,31,33,35,39,45,51,52,56,58,59,66,68).Cervical sources are required for HPV testing.If a vaginal source from a patient who has had atotal hysterectomy with removal of cervix wassubmitted, please contact the testing laboratoryfor alternative testing options.For additional information, please refer tohttp://education.[employer]/faq/QTE494o9(This link if provided for information/educational purposes only.)THIS TEST WAS PERFORMED AT:[facility] [place] [phone] TOMPKINS MD HPV mRNA E6/E7 [facility] HPV 16 RNA [facility] HPV 18/45 RNA [facility] 07/20/2023 11:0 0 AM EST 07/24/2023 8:00 AM EST Yarely Kruger MD LAB CYTOLOGY ORDERABLES Fi nal Result [facility] [address] [place] [phone] * Pap Smear (07/20/2023 11:00 AM EST) 07/20/2023 11:0 0 AM EST 07/24/2023 8:00 AM EST Narrative [facility] - 07/26/2023 12:54 PM EST ----- ------- Name: Adelaida Husain Age/Sex: 43/F : 1980 Unit#: [id number] Attend Dr: Yarely Kruger MD Re07/20/23 Status: DEP REF Location: [facility] Disch: ----- ------- SPEC : [id number] RECD: 07/24/23 STATUS: RAVI PETERSON NUM: [id number] SYDNIE: 07/20/23-1099 [facility] DR: Yarely Kruger MD ENTERED: 07/24/23 SP TYPE: Pap Smr OTHR : ORDERED: Pap Smear Interpretation Satisfactory for evaluation. Fungal organisms consistent with Mary species. Negative for intraepithelial lesion or malignancy. HPV mRNA E6/E7: NOT DETECTED This assay detects E6/E7 viral messenger RNA (mRNA) from 14 high-risk HPV types (16, 18, 31, 33, 35, 39, 45, 51, 52, 56, 58, 59, 66, 68) HPV testing performed by [facility], [place], [place]. See reference laboratory portion of the EMR for entire report. Clinical Information LMP: Unknown date Previous PAP test: 2018, NILM, HPV negative Material Received ThinPrep-Cervical ----- ------- Signed (signature on file) ESTEE Garcia ([facility]) 07/26/23 1254 ----- ------- END OF REPORT Yarely Kruger MD LAB CYTOLOGY ORDERABLES nal Result [facility] [address] [place] [phone] * HM Hepatitis C Antibody (04/19/2018) Hepatitis C Antibody Nonreactive Blood Historical Provider HEALTH MAINTENANCE Final Result from Last 3 Months or Most Recently Relevant to Health Maintenance Insurance [employer] ARBELL[employer] Advance Directives Documents on File Type Date Recorded 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 Anselmo Mcadams MD [facility] [address] [facility] [address] Ophthalmology 08/15/24
--- OUTSIDE RECORDS SUMMARY | 2025-03-27 07:53 | XMS_ITS | Encounter Summary ---
Author Organization [employer] Address [address] [place] [address] 7t [place] [address] Care Team Providers Care Health Information Director Name Role Phone Yarely Kruger MD Primary Care Provider [phone]- [phone] Zeny Reddy MD Unavailable [phone] Tonya Parker NP Unavailable Encounter Details Date Type Department Care Team (Late st Contact Info) Description 03/14/2023 Orders Only [facility] [address] [place] [phone] Yarely Kruger MD [address] [place], [place] [phone] Social History Tobacco Use Types Packs/Day Years [...] documented as of this encounter Care Teams Health Information Director Relationship Specialty Start Date End Date Yarely Kruger MD [address] [place] [address] PCP - General Family Medicine 07/23/18 Zeny Reddy MD [address] [place] [address] Orthopaedic Surgery 06/11/24 Tonya Parker NP [address] [place] [address] Urology 08/26/24 Dr. Anselmo Mcadams MD [facility] [address] [facility] [address] Ophthalmology 08/15/24 documented as of this encounter
--- OUTSIDE RECORDS SUMMARY | 2025-03-27 07:53 | XMS_ITS | Encounter Summary ---
Author Organization [employer] Address 75 [facility] 7t [place] [address] Care Team Providers Care Credit Portfolio Advisor Name Role Phone [address], Yarely JUAREZ Primary Care Provider +[phone]- [phone] Zeny Reddy MD Unavailable [phone] Tonya Parker NP Unavailable Encounter Details Date Type Department Care Team (Late st Contact Info) Description 09/13/2022 Orders Only [facility] [address] [place], [place] [phone] Nevin Serrano MD [address] [place], [place] [phone] Vision problem (Primary Dx) Social History Tobacco [...] EDT 02/21/2023 12:13 PM EDT Comment:UACC Narrative [facility] - 02/23/2023 8:33 AM EDT Escherichia coli Quant > 100,000 cfu/mL Escherichia coli: Ampicillin 4(S) Escherichia coli: Ceftriaxone <=0.25(S) Escherichia coli: Gentamicin <=1(S) Escherichia coli: Levofloxacin <=0.12(S) Escherichia coli: Nitrofurantoin <=16(S) Escherichia coli: Trimethoprim/Sulfamethoxazole <=20(S) Specimen Source: Urine clean catch Gautam Mcdonald MD LAB MICROBIOLOGY - GENERAL ORDER BONG Final Result Performing Organization Address [facility] Co de Phone Number [facility] [address] [place] [phone] * (ABNORMAL) Bacterial Vaginosis (02/20/2023 12:00 AM EDT) Trichomonas DNA Probe Negative Negative [facility] Gardnerella DNA Probe Positive(A) Negative [facility] Mary DNA Probe Positive(A) Negative [facility] 02/20/2023 02/20/2023 Gautam Mcdonald MD LAB MICROBIOLOGY - GENERAL ORDER BONG Final Result Performing Organization Address [facility] de Phone Number [facility] [address] [place] [phone] documented in this encounter Visit Diagnoses Diagnosis Vision problem- Primary Problems with sight documented in this encounter Care Teams Credit Portfolio Advisor Relationship Specialty Start Date End Date [address], MD Yarely [address] [place] [address] PCP - General Family Medicine 07/23/18 Zeny Reddy MD [address] [place] [address] Orthopaedic Surgery 06/11/24 Tonya Parker NP [address] [place] [address] Urology 08/26/24 Dr. Anselmo Mcadams MD [facility] [address] [facility] [address] Ophthalmology 08/15/24 documented as of this encounter
== END 2025-03-27 08:03 | disposition home or self-care (01) ==
PROVIDERS: Emergency Provider Emergency Medicine; PCP Family Medicine
DX: S13.4XXA Sprain of ligaments of cervical spine, initial encounter (principal); S39.012A Strain of muscle, fascia and tendon of lower back, initial encounter; V43.52XA Car driver injured in collision with other type car in traffic accident, initial encounter; Y93.9 Activity, unspecified; Y92.410 Unspecified street and highway as the place of occurrence of the external cause; Y99.8 Other external cause status
CPT/HCPCS: 99283; 99284

== ENCOUNTER 2025-05-18 16:31 | Outpatient (REF) | payer OTHER, SELFPAY ==
--- OUTSIDE RECORDS SUMMARY | 2025-05-18 14:00 | XMS_ITS | Encounter Summary ---
Author Organization [employer] Address 75 [facility] 7t [place] [address] Care Team Providers Care County Extension Agent Name Role Phone Saskia, Yarely JUAREZ Primary Care Provider [phone]- [phone] Zeny Reddy MD Unavailable [phone] Tonya Parker NP Unavailable Reason for Visit * Reason Comments Chills Cough foul smelling urine left ear pain Encounter Details Date Type Department Care Team (Late st Contact Info) Description 05/18/2025 2:00 PM EDT Office Visit [facility] [address] [place] [address] [phone] Name, MD Inderjit [address] [place], [place] [phone] Acute left otitis media (Primary Dx); Chills; Urinary tract infection without hematuria, site unspecified; Foul smelling urine Social History Tobacco Use Types Packs/Day Years [...] Sign Reading Time Taken Comments Blood Pressure 136/81 05/18/2025 2:03 PM EDT Pulse 95 05/18/2025 2:03 PM EDT Temperature 36.4 C (97.5 F) 05/18/2025 2:03 PM EDT Respiratory Rate 18 05/18/2025 2:03 PM EDT Oxygen Saturation 98% 05/18/2025 2:03 PM EDT Inhaled Oxygen Concentration - - Weight 65.9 kg (145 lb 3.2 oz) 05/18/2025 2:03 P M EDT Height 144.8 cm (4' 9 ) 05/18/2025 2:03 PM EDT Body Mass Index 31.42 05/18/2025 2:03 PM EDT documented in this encounter Progress Notes * Inderjit Alfaro MD - 05/18/2025 2:00 PM EDT Subjective Patient ID: Adelaida Husain is a 45 y.o. female who presents for Chills, Cough, foul smelling urine,and left ear pain. Pt symptoms started 5 days ago URI symptoms include chills, nasal congestion, body aches, cough and sore throat, ear pain since yesterday Also foul smelling urine for the same amount of time, no urinary frequency, no dysuria No new sexual partners or concern for STD Review of Systems Constitutional: Positive for chills and fatigue. HENT: Positive for ear pain and sore throat. Respiratory: Positive for cough. Negative for shortness of breath. Cardiovascular: Negative for chest pain, palpitations and leg swelling. Genitourinary: See HPI Objective Vitals: 05/18/25 1403 BP: 136/81 BP Location: Left arm Patient Position: Sitting BP Cuff Size: Adult Pulse: 95 Resp: 18 Temp: 97.5 ??F (36.4 ??C) TempSrc: Temporal SpO2: 98% Weight: 145 lb 3.2 oz (65.9 kg) Height: 4' 9 (1.448 m) Physical Exam Constitutional: General: She is not in acute distress. Appearance: Normal appearance. She is not toxic-appearing. HENT: Right Ear: Tympanic membrane normal. Left Ear: Tympanic membrane is injected. Cardiovascular: Rate and Rhythm: Normal rate and regular rhythm. Heart sounds: No murmur heard. No gallop. Pulmonary: Effort: Pulmonary effort is normal. No respiratory distress. Breath sounds: Normal breath sounds. No wheezing. Musculoskeletal: Right lower leg: No edema. Left lower leg: No edema. Neurological: Mental Status: She is alert. Latest Reference Range & Units 05/18/25 14:12 05/18/25 14:13 Rapid Strep A Screen Negative, None Detected Negative Color, UA Dark Florencia Specific [place], UA 1.025 pH, UA 5.5 Ketones, UA Positive Protein, UA Negative Nitrite, UA Negative, None Detected Positive ! RBC, UA Negative, None Detected Negative Clarity, UA Cloudy Glucose, UA Negative Leukocytes, UA Negative, Rare, Trace Many ! Bilirubin UA Negative Urobilinogen, UA 0.2 Influenza A Negative, Indeterminate Negative Influenza B Negative, Indeterminate Negative Rapid COVID Ag Negative Appearance, UA dark yellow !: Data is abnormal Assessment/Plan Diagnoses and all orders for this visit: Acute left otitis media Comments: Patient presents with URI symptoms and on exam she has evidence of left otitis media. Likely left otitis media following a viral URI. She tested negative for COVID, flu, strep. I recommended rest, drink plenty of fluids, Tylenol as needed and course of levofloxacin. Chills - POCT Rapid Covid-19 BinaxNOW - POCT Rapid Influenza A SPAIN ID NOW - POCT Rapid Influenza B SPAIN ID NOW - POCT Rapid Strep A SPAIN ID NOW Urinary tract infection without hematuria, site unspecified Comments: I will treat the patient with levofloxacin given concomitant left otitis media and results of previous urine culture that showed E. coli resistant to ampicillin. She encouraged to call or come back if not much better in a couple of days Foul smelling urine - POCT Urinalysis - Urinalysis, Complete, with Reflex to Culture; Future Other orders - levoFLOXacin (Levaquin) 750 MG tablet; Take 1 tablet (750 mg) by mouth Once per day for 7 days. documented in this encounter Plan of Treatment Not on file documented as of this encounter Procedures Procedure Name Priority Date/Time Associated Diagnosis Comments POC SPAIN ID NOW STREP A Routine 05/18/2025 2:13 PM EDT Chills POCT URINALYSIS DIPSTICK Routine 05/18/2025 2:13 PM EDT Foul smelling urine POCT INFLUENZA B (ID NOW RAPID MOLECULAR) Routine 05/18/2025 2:12 PM EDT Chills POCT INFLUENZA A (ID NOW RAPID MOLECULAR) Routine 05/18/2025 2:12 PM EDT Chills POCT RAPID COVID ANTIGEN Routine 05/18/2025 2:12 PM EDT Chills URINALYSIS, COMPLETE, WITH REFLEX TO CULTURE Routine 05/18/2025 12:00 AM EDT Foul smelling urine documented in this encounter Results * (ABNORMAL) POCT Urinalysis (05/18/2025 2:13 PM EDT) Color, UA Dark Fl[place]ncia Clarity, UA Cloudy Glucose, UA Negative Bilirubin, UA Negative Ketones, UA Positive Comment:trace Spec Grav, UA 1.025 Blood, UA Negative Negative, None Detected pH, UA 5.5 Protein, UA Negative Urobilinogen, UA 0.2 Leukocytes, UA Many(A) Negative, Rare, Trace Comment:small Nitrite, UA Positive(A) Negative, None Detected Appearance, UA dark yellow QC Media Lot # [id number] Lot# Expiration Date 63,026 Urine (Urine, Random) 05/18/2025 2:13 PM EDT Inderjit Alfaro MD POINT OF CARE TEST ENTER/EDIT OR DERABLES Final Result * POCT Rapid Strep A SPAIN ID NOW (05/18/2025 2:13 PM EDT) [facility] Rapid Strep A Screen Negative Negative, None Detected QC Media Lot # [id number] Lot# Expiration Date Swab 05/18/2025 2:13 PM EDT Inderjit Alfaro MD POINT OF CARE TEST ENTER/EDIT OR DERABLES Final Result * POCT Rapid Influenza B SPAIN ID NOW (05/18/2025 2:12 PM EDT) [facility] Influenza B Negative Negative, Indeterminate [facility] QC Media Lot # [id number] [facility] Lot# Expiration Date [facility] Swab 05/18/2025 2:12 PM EDT Inderjit Alfaro MD POINT OF CARE TEST ENTER/EDIT OR DERABLES Final Result [facility] [address] [place] [phone] * POCT Rapid Influenza A SPAIN ID NOW (05/18/2025 2:12 PM EDT) [facility] Influenza A Negative Negative, Indeterminate [facility] QC Media Lot # [id number] [facility] Lot# Expiration Date [facility] Swab 05/18/2025 2:12 PM EDT us Inderjit Alfaro MD POINT OF CARE TEST ENTER/EDIT OR DERABLES Final Result Performing Organization Address [facility] Co de Phone Number [facility] [address] [place] [address] [phone] * POCT Rapid Covid-19 BinaxNOW (05/18/2025 2:12 PM EDT) Rapid COVID Ag Negative [facility] QC Media Lot # [id number] [facility] Lot# Expiration Date [id number] [facility] Swab 05/18/2025 2:12 PM EDT us Inderjit Alfaro MD POINT OF CARE TEST ENTER/EDIT OR DERABLES Final Result Performing Organization Address [facility] de Phone Number [facility] [address] [place] [phone] * (ABNORMAL) Urinalysis, Complete, with Reflex to Culture (05/18/2025 12:00 AM EDT) Color Urine Yellow [facility] Appearance Urine Turbid [facility] PH 5.0 5.0 - 9.0 [facility] Glucose Urine UA Negative Negative mg/dL [facility] Urine Blood Negative Negative [facility] Specific [place] - Urine 1.025 1.005 - 1.025 [facility] Urine Protein Negative Neg-Trace mg/dL [facility] Urine Ketones Negative Negative mg/dL [facility] Nitrite Urine Positive(A) Negative [facility] Leukocyte Esterase Urine Moderate (2+)(A) Negative [facility] RBC Urine 0-2 0 - 2 /HPF [facility] Urine WBC 6-10(A) 0 - 5 /HPF [facility] Urine Squamous Epithelial Cell 6-10 0 - 2 /HPF [facility] Urine Bacteria 4+ None Seen [facility] Hyaline Casts, Urine 0-2 0 - 2 /LPF [facility] Urine 05/18/2025 05/18/2025 Narrative [facility] - 05/18/2025 6:07 PM EDT Urine, Clean Catch us Inderjit Name MD LAB URINE ORDERABLES Final Resul t [facility] [address] [place] [phone] documented in this encounter Visit Diagnoses Diagnosis Acute left otitis media- Primary Chills Chills (without fever) Urinary tract infection without hematuria, site unspecified Foul smelling urine documented in this encounter Additional Health Concerns Assessment Noted Time PHQ-9 Depression Total Score: 0 08/20/19 1:39 PM EST documented as of this encounter Care Teams County Extension Agent Relationship Specialty Start Date End Date Yarely Kruger MD [address] [place] [address] PCP - General Family Medicine 07/23/18 Zeny Reddy MD [address] [place] [address] Orthopaedic Surgery 06/11/24 Tonya Parker NP [address] [place] [address] Urology 08/26/24 Dr. Anselmo Mcadams MD [facility] [address] [facility] [address] Ophthalmology 08/15/24 documented as of this encounter
[2025-05-18 17:50] LABS: Appearance Urine Turbid; Glucose Urine UA Negative (Negative); PH 5.0 (5.0-9.0); Specific Gravity - Urine 1.025 (1.005-1.025); UMIC TRIGGER UACC YES
[2025-05-18 17:55] LABS: UACC Culture Trigger YES
--- OUTSIDE RECORDS SUMMARY | 2025-05-18 19:16 | XMS_ITS | Encounter Summary ---
Author Organization [employer] Address 75 [facility] 7t [place] [address] Care Team Providers Care Salesperson Wigs Name Role Phone Yarely Kruger MD Primary Care Provider [phone]- [phone] Zeny Reddy MD Unavailable [phone] Tonya Parker NP Unavailable Encounter Details Date Type Department Care Team (Late st Contact Info) Description 08/28/2022 Abstract [facility] [address] [place], [place] [phone] Yarely Kruger MD [address] [place], [place] [phone] Social History Tobacco Use Types Packs/Day Years [...] on filedocumented in this encounter Care Teams Salesperson Wigs Relationship Specialty Start Date End Date Yarely Kruger MD [address] [place] [address] PCP - General Family Medicine 07/23/18 Zeny Reddy MD [address] [place] [address] Orthopaedic Surgery 06/11/24 Tonya Parker NP [address] [place] [address] Urology 08/26/24 Dr. Anselmo Mcadams MD [facility] [address] [facility] [address] Ophthalmology 08/15/24 documented as of this encounter
--- OUTSIDE RECORDS SUMMARY | 2025-05-18 19:16 | XMS_ITS | Encounter Summary ---
Author Organization [employer] Address 75 [facility] 7t [place] [address] Care Team Providers Care Electrotype Molder Name Role Phone Yarely Kruger MD Primary Care Provider [phone]- [phone] Zeny Reddy MD Unavailable [phone] Tonya Parker NP Unavailable Encounter Details Date Type Department Care Team (Latest Contact Info) Description 05/18/2025 Travel Social History Tobacco Use Types Packs/Day [...] documented as of this encounter Care Teams Electrotype Molder Relationship Specialty Start Date End Date Yarely Kruger MD [address] [place] [address] PCP - General Family Medicine 07/23/18 Zeny Reddy MD [address] [place] [address] Orthopaedic Surgery 06/11/24 Tonya Parker NP [address] [facility] [facility] [address] [place] [address] Urology 08/26/24 Dr. Anselmo Mcadams MD [facility] [address] [facility] [address] Ophthalmology 08/15/24 documented as of this encounter
--- OUTSIDE RECORDS SUMMARY | 2025-05-18 19:16 | XMS_ITS | Encounter Summary ---
Author Organization [employer] Address [address] [place] [address] 7t [place] [address] Care Team Providers Care Snaker Driving Horses Name Role Phone Yarely Kruger MD Primary Care Provider +- [phone] Zeny Reddy MD Unavailable [phone] Tonya Parker NP Unavailable Encounter Details Date Type Department Care Team (Late st Contact Info) Description 03/14/2023 Orders Only [facility] [address] [place] [address] [phone] Yarely Kruger MD [address] [place], [place] [phone] Social History Tobacco Use Types Packs/Day Years [...] documented as of this encounter Care Teams Snaker Driving Horses Relationship Specialty Start Date End Date Yarely Kruger MD [address] [place] [address] PCP - General Family Medicine 07/23/18 Zeny Reddy MD [address] [place] [address] Orthopaedic Surgery 06/11/24 Tonya Parker NP [address] [place] [address] Urology 08/26/24 Dr. Anselmo Mcadams MD [facility] [address] [facility] [address] Ophthalmology 08/15/24 documented as of this encounter
--- OUTSIDE RECORDS SUMMARY | 2025-05-18 19:16 | XMS_ITS | Encounter Summary ---
Author Organization [employer] Address [address] [facility] 7t [place] [address] Care Team Providers Care Corporate Legal Secretary Name Role Phone Yarely Kruger MD Primary Care Provider +[phone]- [phone] Zeny Reddy MD Unavailable [phone] Tonya Parker NP Unavailable Encounter Details Date Type Department Care Team (Late st Contact Info) Description 05/09/2023 Abstract [facility] [address] [place], [place] [phone] Yarely Kruger MD [address] [place], [place] [phone] Social History Tobacco Use Types Packs/Day Years [...] documented as of this encounter Care Teams Corporate Legal Secretary Relationship Specialty Start Date End Date Yarely Kruger MD [address] [place] [address] PCP - General Family Medicine 07/23/18 Zeny Reddy MD [address] [place] [address] Orthopaedic Surgery 06/11/24 Tonya Parker NP [address] [facility] [address] [place] [address] Urology 08/26/24 Dr. Anselmo Mcadams MD [facility] [address] [facility] [address] Ophthalmology 08/15/24 documented as of this encounter
--- OUTSIDE RECORDS SUMMARY | 2025-05-18 19:16 | XMS_ITS | Encounter Summary ---
Author Organization [employer] Address [address] [place] [address] 7t [place] [address] Care Team Providers Care Manager Utilization Management Name Role Phone Yarely Kruegr MD Primary Care Provider [phone]- [phone] Zeny Reddy MD Unavailable [phone] Tonya Parker NP Unavailable Reason for Visit * Reason Onset Date Comments Referral 09/08/2022 Encounter Details Date Type Department Care Team (Late st Contact Info) Description 09/08/2022 Telephone [facility] 230 [place], [place] [phone] Yarely Kruger MD [address] [place], [place] [phone] Referral Social History Tobacco Use Types Packs/Day [...] an referral to be seen at the [facility] Please contact pt at [phone] documented in this encounter Plan of Treatment Not on file documented as of this encounter Visit Diagnoses Not on filedocumented in this encounter Care Teams Manager Utilization Management Relationship Specialty Start Date End Date Yarely Kruger MD [address] [place] [address] PCP - General Family Medicine 07/23/18 Zeny Reddy MD [address] [place] [address] Orthopaedic Surgery 06/11/24 Tonya Parker NP [address] [place] [address] Urology 08/26/24 Dr. Anselmo Mcadams MD [facility] [address] [facility] [address] Ophthalmology 08/15/24 documented as of this encounter
--- OUTSIDE RECORDS SUMMARY | 2025-05-18 19:16 | XMS_ITS | Encounter Summary ---
Author Organization [facility] Address [address] [place] [address] [place] [phone] Phone Care Team Providers Care Floriculture Teacher Name Role Phone Yarely Kruger MD Primary Care [facility] Encounter Details Date Type Department Care Team (Late st Contact Info) Description 09/05/2024 Procedure Pass [facility] PERIOP DEPT [address] [place] [address] Social History Tobacco Use Types Packs/Day Years [...] on filedocumented in this encounter Care Teams Floriculture Teacher Relationship Specialty Start Date End Date Yarely Kruger MD [address] [place] [address] [phone] PCP - General Family Medicine 08/15/24 documented as of this encounter Additional Source Comments The information contained in this document represents components of the legal health record. It is not the complete legal health record.[facility]
--- OUTSIDE RECORDS SUMMARY | 2025-05-18 19:16 | XMS_ITS | Encounter Summary ---
Author Organization [employer] Address 75 [facility] 7t [place] [address] Care Team Providers Care Associate Professor Of Sociology Name Role Phone Yarely Kruger MD Primary Care Provider [phone]- [phone] Zeny Reddy MD Unavailable [phone] Tonya Parker NP Unavailable Encounter Details Date Type Department Care Team (Late st Contact Info) Description 12/21/2023 Orders Only [facility] MEDICINE 230 [place], [place] [phone] Yarely Kruger MD 230 [place], [place] [phone] Acute cystitis without hematuria (Primary Dx) Social [...] t he electric, gas, oil or water [employer] threatened to shut off services in your [...] PM EDT Narrative 01/15/2024 6:12 PM EDT [place] [address] XRay Report Signed Patient: Adelaida Husain MR#: [id number] : 1980 Acct:[id number] Age/Sex: 43 / F ADM Date: 01/15/24 Loc: HO.ED Attending Dr: Ordering Physician: Madeline Duran NP Date of Service: 01/15/24 Procedure(s): XR thoracic spine 2V Accession Number(s): [id number] cc: Yarely Kruger MD; Madeline Duran NP [...] MD in OV> 01/15/241806 DD/ 1703 TD/TT: Crime Analyst: LIZ Procedure Note Donotuseinterpreter, Image - 01/15/2024 [facility] [address] [place] [address] XRay Report Signed Patient: Adelaida Husain BMR#: [id number] : 1980Acct:[id number] Age/Sex: 43 / FADM Date: 01/15/24 Loc: HO.ED Attending Dr: Ordering Physician: Madeline Duran NP Date of Service: 01/15/24 Procedure(s): XR thoracic spine 2V Accession Number(s): [id number] cc: Yarely Kruger MD; Madeline Duran NP [...] MD in OV> 01/15/241806 DD/ 170 TD/TT: Crime Analyst: LIZ [facility] External Provider IMG XR PROCEDURES Final Result documented in this encounter Visit Diagnoses Diagnosis Acute cystitis without hematuria- Primary documented in this encounter Additional Health Concerns Assessment Noted Time PHQ-9 Depression Total Score: 0 03/05/20 9:12 AM EDT documented as of this encounter Care Teams Associate Professor Of Sociology Relationship Specialty Start Date End Date Yarely Kruger MD [address] [place] [address] PCP - General Family Medicine 07/23/18 Zeny Reddy MD [address] [place] [address] Orthopaedic Surgery 06/11/24 Tonya Parker NP [address] [place] [address] Urology 08/26/24 Dr. Anselmo Mcadams MD [facility] [address] [facility] [address] Ophthalmology 08/15/24 documented as of this encounter
--- OUTSIDE RECORDS SUMMARY | 2025-05-18 19:16 | XMS_ITS | Encounter Summary ---
Author Organization [employer] Address [address] [facility] [address] [place] [address] Care Team Providers Care Winery Cellar Hand Name Role Phone Saskia, Yarely JUAREZ Primary Care Provider [phone] Zeny Reddy MD Unavailable [phone] Tonya Parker NP Unavailable Encounter Details Date Type Department Care Team (Late st Contact Info) Description 09/13/2022 Orders Only [facility] [address] [place], [place] [phone] Nevin Serrano MD [address] [place], [place] [phone] Vision problem (Primary Dx) Social History Tobacco [...] EDT 02/21/2023 12:13 PM EDT Comment:UACC Narrative [facility] - 02/23/2023 8:33 AM EDT Escherichia coli Quant > 100,000 cfu/mL Escherichia coli: Ampicillin 4(S) Escherichia coli: Ceftriaxone <=0.25(S) Escherichia coli: Gentamicin <=1(S) Escherichia coli: Levofloxacin <=0.12(S) Escherichia coli: Nitrofurantoin <=16(S) Escherichia coli: Trimethoprim/Sulfamethoxazole <=20(S) Specimen Source: Urine clean catch Gautam Mcdonald MD LAB MICROBIOLOGY - GENERAL ORDER BONG Final Result Performing Organization Address [facility] Co de Phone Number [facility] [address] [place] [phone] * (ABNORMAL) Bacterial Vaginosis (02/20/2023 12:00 AM EDT) Trichomonas DNA Probe Negative Negative [facility] Gardnerella DNA Probe Positive(A) Negative [facility] Mary DNA Probe Positive(A) Negative [facility] 02/20/2023 02/20/2023 Gautam Mcdonald MD LAB MICROBIOLOGY - GENERAL ORDER BONG Final Result Performing Organization Address [facility] de Phone Number [facility] [address] [place] [phone] documented in this encounter Visit Diagnoses Diagnosis Vision problem- Primary Problems with sight documented in this encounter Care Teams Winery Cellar Hand Relationship Specialty Start Date End Date [place], MD Yarely [address] [place] [phone] PCP - General Family Medicine 07/23/18 Zeny Reddy MD [address] [place] [address] Orthopaedic Surgery 06/11/24 Tonya Parker NP [address] [place] [address] Urology 08/26/24 Dr. Anselmo Mcadams MD [facility] [address] [facility] [address] Ophthalmology 08/15/24 documented as of this encounter
--- OUTSIDE RECORDS SUMMARY | 2025-05-18 19:16 | XMS_ITS | Clinical Summary ---
Author Organization [facility] Address [address] [place] [phone] Phone Care Team Providers Care Steam Finisher Name Role Phone Yarely Kruger MD Primary Care [facility] Allergies No known active allergies Medications No [...] 1999 SCREENING FOR DIABETES 2016 MAMMOGRAM 2021 INFLUENZA VACCINE (#1) 2025 COVID-19 VACCINE (1 - 2024-2 6 season) 2025 PAP SMEAR 07/20/2026 07/20/2023 Adult Td,Tdap Booster [...] this topic Medical Devices Implanted Type Area Product Development Manager Device Identifier Shelf Expiration Date Model / Serial / Lot Breast Insurance [facility] C3 ACO [facility] C[facility] ACO Care Teams Steam Finisher Relationship Specialty Start Date End Date [place], Yarely Travis MD [address] [place] [phone] PCP - General Family Medicine 08/15/24 Additional Source Comments The information contained in this document represents components of the legal health record. It is not the complete legal health record.[facility]
--- OUTSIDE RECORDS SUMMARY | 2025-05-18 19:16 | XMS_ITS | Clinical Summary ---
Author Organization [employer] Address [address] [facility] 7[address] [place] [address] Care Team Providers Care Oracle Obiee Developer Name Role Phone Yarely Kruger MD Primary Care Provider [phone] Zeny Reddy MD Unavailable [phone] Tonya Parker NP Unavailable Allergies No known active allergies Medications LORazepam (Ativan) 0.5 MG tabletIndicatio ns:Fear of flying Take 1 tab po daily 1 hour before flying , prn anxiety may repeat x 1 after [address] with the medication. 6 tablet 01/28/2025 Active levoFLOXacin (Levaquin) 750 MG tablet Take 1 tablet (750 mg) by mouth Once per day for 7 days. 7 tablet 05/18/2025 5 Active Active Problems Problem Noted Date Diagnosed [...] Overview (04/14/2024): Seen by urology, Jeremie Parker, GMAT INSTRUCTOR : US 12/03/23 BLADDER: Well distended and [...] AM EDT): Seen by urology, Jeremie Parker, JAQUELINE : US 12/03/23 BLADDER: Well distended [...] every [address] Mcadams at [facility] in [place]. 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 She was seen on 08/15/[address] Mcadams Assessment & Plan (07/20/2023 9:00 AM EST): Followed every [address] Mcadams at [facility] in [place]. The patient has optic nerve pallor, vascular [...] every [address] Mcadams at [facility] in [place]. 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 Discovered on routine opthalmic exam 2005. work up with nutrition director Dr. 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 Initially treated with methotrexate and IVIG. Failed MTX and Imuran. Previously failed tapering IV-IG below 20g in 2009. Stopped IVIG 01/2015 as no inflammation noted. Stopped prednisone oral 07/2018. Seen by Dr. Martinez Mcadams 07/28/2019 at [facility] [phone]. Inflammation and worsening vasculitis seen on exam [...] as Dr. Mcadams -Continue with Dr. Luis [facility] optometry last seen 11/2022 we scheduled her for visual field on 02/2023. 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 Discovered on routine opthalmic exam 2005. work up with nutrition director Dr. 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 Initially treated with methotrexate and IVIG. Failed MTX and Imuran. Previously failed tapering IV-IG below 20g in 2009. Stopped IVIG 01/2015 as no inflammation noted. Stopped prednisone oral 07/2018. Seen by Dr. Martinez Mcadams 07/28/2019 at [facility] [phone]. Inflammation and worsening vasculitis seen on exam [...] as Dr. Mcadams -Continue with Dr. Luis [facility] optometry last seen 11/2022 we scheduled her for visual field on 02/2023. 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 Discovered on routine opthalmic exam 2005. work up with nutrition director Dr. 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 Initially treated with methotrexate and IVIG. Failed MTX and Imuran. Previously failed tapering IV-IG below 20g in 2009. Stopped IVIG 01/2015 as no inflammation noted. Stopped prednisone oral 07/2018. Seen by Dr. Martinez Mcadams 07/28/2019 at [facility] [phone]. Inflammation and worsening vasculitis seen on exam [...] as Dr. Mcadams -Continue with Dr. Luis [facility] optometry last seen 11/2022 we scheduled her for visual field on 02/2023. 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 Discovered on routine opthalmic exam 2005. work up with nutrition director Dr. 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 Initially treated with methotrexate and IVIG. Failed MTX and Imuran. Previously failed tapering IV-IG below 20g in 2009. Stopped IVIG 01/2015 as no inflammation noted. Stopped prednisone oral 07/2018. Seen by Dr. Martinez Mcadams 07/28/2019 at [facility] [phone]. Inflammation and worsening vasculitis seen on exam [...] as Dr. Mcadams -Continue with Dr. Luis [facility] optometry last seen 11/2022 we scheduled [...] Encounters Date Type Department Care Team Description 05/18/2025 2:00 PM EDT Office Visit [facility] [address] [place] [address] Name, MD Inderjit Acute left otitis media (Primary Dx); Chills; Urinary tract infection without hematuria, site unspecified; Foul smelling urine 05/18/2025 Travel from Last 3 Months Immunizations Immunization [...] Mass Index 31.42 05/18/2025 2:03 PM EDT Plan of Treatment Health Maintenance Due Date Last Done Comments Disability Screening 1980 Family Planning (PISQ) 1996 HPV Vaccines (1 - 3-dose series) 1996 COVID-19 Vaccine ( season) 2025 08/10/2021, 07/11/2021 Influenza Vaccine (#1) 2025 Alcohol/Substance Use Screening 08/20/2025 08/20/2024 Depression Screening 08/20/2025 08/20/2024, 08/20/19 SDOH Screening 08/20/2025 08/20/2024 Tobacco Screening 05/18/2026 05/18/2025 Mammogram 09/04/2026 09/04/2024, 02/0 02/2024, 08/30/2023, Additional [...] Procedure Name Priority Date/Time Associated Diagnosis Comments POCT URINALYSIS DIPSTICK Routine 05/18/2025 2:13 PM EDT Foul smelling urine POC SPAIN ID NOW STREP A Routine 05/18/2025 2:13 PM EDT [place] POCT INFLUENZA B (ID NOW RAPID MOLECULAR) Routine 05/18/2025 2:12 PM EDT [place] POCT INFLUENZA A (ID NOW RAPID MOLECULAR) Routine 05/18/2025 2:12 PM EDT [place] POCT RAPID COVID ANTIGEN Routine 05/18/2025 2:12 PM EDT [place] URINALYSIS, COMPLETE, WITH REFLEX TO CULTURE Routine 05/18/2025 12:00 AM EDT Foul smelling urine BI MAMMOGRAM SCREEN W DONNELL W IMPLANTS [...] Recently Relevant to Health Maintenance Results * POCT Rapid Strep A SPAIN ID NOW (05/18/2025 2:13 PM EDT) Pathologist [facility] Rapid Strep A Screen Negative Negative, None Detected QC Media Lot # [id number] Lot# Expiration Date Swab 05/18/2025 2:13 PM EDT Inderjit Alfaro MD POINT OF CARE TEST ENTER/EDIT OR DERABLES Final Result * (ABNORMAL) POCT Urinalysis (05/18/2025 2:13 PM [...] Urine (Urine, Random) 05/18/2025 2:13 PM EDT us Inderjit Alfaro MD POINT OF CARE TEST ENTER/EDIT OR DERABLES Final Result * POCT Rapid Influenza B SPAIN ID NOW (05/18/2025 2:12 PM EDT) Influenza B Negative Negative, Indeterminate [facility] QC Media Lot # [id number] [facility] Lot# Expiration Date [facility] Swab 05/18/2025 2:12 PM EDT us Inderjit Alfaro MD POINT OF CARE TEST ENTER/EDIT OR DERABLES Final Result Performing Organization Address [facility] Co de Phone Number [facility] [address] [place] [address] [phone] * POCT Rapid Influenza A SPAIN ID NOW (05/18/2025 2:12 PM EDT) Influenza A Negative Negative, Indeterminate [facility] QC Media Lot # [id number] [facility] Lot# Expiration Date [facility] Swab 05/18/2025 2:12 PM EDT us Inderjit Alfaro MD POINT OF CARE TEST ENTER/EDIT OR DERABLES Final Result Performing Organization Address [facility] Co de Phone Number [facility] [address] [place] [phone] * POCT Rapid Covid-19 BinaxNOW (05/18/2025 2:12 PM EDT) Rapid COVID Ag Negative [facility] QC Media Lot # [id number] [facility] Lot# Expiration Date [id number] [facility] Swab 05/18/2025 2:1 2 PM EDT us Inderjit Name MD POINT OF CARE TEST ENTER/EDIT OR DERABLES Final Result [facility] [address] [place] [phone] * (ABNORMAL) Urinalysis, Complete, with Reflex to Culture (05/18/2025 12:00 AM EDT) Color Urine Yellow [facility] Appearance Urine Turbid [facility] PH 5.0 5.0 - 9.0 [facility] Glucose Urine UA Negative Negative mg/dL [facility] Urine Blood Negative Negative [facility] Specific Andrews - Urine 1.025 1.005 - 1.025 [facility] Urine Protein Negative Neg-Trace mg/dL [facility] Urine Ketones Negative Negative mg/dL [facility] Nitrite Urine Positive(A) Negative [facility] Leukocyte Esterase Urine Moderate (2+)(A) Negative [facility] RBC Urine 0-2 0 - 2 /HPF [facility] Urine WBC 6-10(A) 0 - 5 /HPF [facility] Urine Squamous Epithelial Cell 6-10 0 - 2 /HPF [facility] Urine Bacteria 4+ None Seen [facility] Hyaline Casts, Urine 0-2 0 - 2 /LPF [facility] Urine 05/18/2025 05/18/2025 Narrative [facility] - 05/18/2025 6:07 PM EDT Urine, Clean Catch us Inderjit Alfaro MD LAB URINE ORDERABLES Final Resul t [facility] [address] [place] [address] [phone] * BI Mammogram Screen w/ Donnell w/ Implants Evan (09/04/2024 3:15 PM EST) Anatomical Region Laterality Modality Mammography 09/04/2024 3:15 PM EST Narrative 09/13/2024 9:49 AM EST [address] [place] [address] Mammography Report Signed Patient: Adelaida Husain MR#: [id number] : 1980 Acct:[id number] Age/Sex: 44 / F ADM Date: 09/04/24 Loc: HO.MAMMO Attending Dr: Yarely Kruger MD Ordering Physician: Yarely Kruger MD Results: 2B enign Findings Date of Service: 09/04/24 Follow Up: 1 Year From Orig ina Mammogram Procedure(s): MM tomosynthesis screen imp BI Accession Number(s): [id number] cc: Yarely Kruger MD EXAMINATION: MM SCREENING [...] 09/13/24 0946 DD/ 1515 TD/TT: 09/04/24 1530 Shaft Mechanic: Procedure Note Donotuseinterpreter, Image - 09/13/2024 [facility] [address] [place], [place] [address] Mammography Report Signed Patient: Adelaida Husain BMR#: [id number] : 1980Acct:[id number] Age/Sex: 44 / FADM Date: 09/04/24 Loc: HO.MAMMO Attending Dr: Yarely Kruger MD Ordering Physician: Yarely Kruger MDResults: 2B enign Findings Date of Service: 09/04/24Follow Up: 1 Year From Orig ina Mammogram Procedure(s): MM tomosynthesis screen imp BI Accession Number(s): [id number] cc: Yarely Kruger MD EXAMINATION: MM SCREENING [...] 09/13/24 0946 DD/ 1515 TD/TT: 09/04/24 1530 Shaft Mechanic: Yarely Kruger MD IMG BI PROCEDURES Edited R esult - Final * HIV-1/2 Antigen and Antibodies, Fourth Generation, with Reflexes (07/20/2023 11:16 AM EST) HIV AB/AG Nonreactive Nonreactive [facility] Comment:HIV-1 p24 Ag and/or HIV-1/HIV-2 Ab not detected.A test result that is nonreactive does not exclude thepossibility of exposure to or infection with HIV-1 and/orHIV-2. Nonreactive results in this assay for individualswith prior exposure to HIV-1 and/or HIV-2 may be due toantigen and antibody levels that are below the limit ofdetection of this assay.The [employer] HIV Ag/Ab Combo assay result andsupplemental assay results should be interpreted inconjunction with the patient's clinical presentation,history and other laboratory results. If the results areinconsistent with clinical evidence, additional testing issuggested to confirm the result. Blood Venous blood specimen / Unknown 07/20/2023 11:16 AM EST 07/20/2023 1:16 PM EST Yarely Kruger MD LAB BLOOD ORDERABLES Final Result [facility] [address] [place] [phone] * HPV mRNA E6/E7 w/Reflex to HPV Genotypes 16, 18/45 (07/20/2023 11:00 AM EST) HPV nRNA E6/E7 Not Detected Not Detected [facility] Comment:Methodology: Transcr iption-Mediated AmplificationThis assay detects E6/E7 viral messenger RNA (mRNA) from 14high-risk HPV types (16,18,31,33,35,39,45,51,52,56,58,59,66,68).Cervical sources are required for HPV testing.If a vaginal source from a patient who has had atotal hysterectomy with removal of cervix wassubmitted, please contact the testing laboratoryfor alternative testing options.For additional information, please refer [email or web address](This link if provided for information/educational purposes only.)THIS TEST WAS PERFORMED AT:[address] [place] [phone] TOMPKINS MD HPV mRNA E6/E7 [facility] HPV 16 RNA [facility] HPV 18/45 RNA [facility] 07/20/2023 11:0 0 AM EST 07/24/2023 8:00 AM EST us Yarely Kruger MD LAB CYTOLOGY ORDERABLES Fi nal Result [facility] [address] [place], [place] [phone] * Pap Smear (07/20/2023 11:00 AM EST) 07/20/2023 11:0 0 AM EST 07/24/2023 8:00 AM EST Narrative [facility] - 07/26/2023 12:54 PM EST ----- ------- Name: Adelaida Husain Age/Sex: 43/F : 1980 Unit#: [id number] Attend Dr: Yarely Kruger MD Re07/20/23 Status: DEP REF Location: [facility] Disch: ----- ------- SPEC : [id number] RECD: 07/24/23 STATUS: RAVI PETERSON NUM: [id number] SYDNIE: 07/20/23-1099 [facility] [address]: Yarely Kruger MD ENTERED: 07/24/23 SP TYPE: Pap Smr OT DR: ORDERED: Pap Smear Interpretation Satisfactory for evaluation. Fungal organisms consistent with Mary species. Negative for intraepithelial lesion or malignancy. HPV mRNA E6/E7: NOT DETECTED This assay detects E6/E7 viral messenger RNA (mRNA) from 14 high-risk HPV types (16, 18, 31, 33, 35, 39, 45, 51, 52, 56, 58, 59, 66, 68) HPV testing performed by [facility], [place], [place]. See reference laboratory portion of the EMR for entire report. Clinical Information LMP: Unknown date Previous PAP test: 2018, NILM, HPV negative Material Received ThinPrep-Cervical ----- ------- Signed (signature on file) ESTEE Garcia (ASCP) 07/26/23 1254 ----- ------- END OF REPORT Yarely Kruger MD LAB CYTOLOGY ORDERABLES Fi nal Result [facility] [address] [place] [phone] [phone] * Hepatitis C Antibody (04/19/2018) Hepatitis C Antibody Nonreactive Blood Historical Provider HEALTH MAINTENANCE Final Result from Last 3 Months or Most Recently Relevant to Health Maintenance [facility] Advance Directives Documents on File Type Date Recorded 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 Anselmo Mcadams MD [facility] [address] [facility] [address] Ophthalmology 08/15/24
== END 2025-05-18 16:32 | disposition home or self-care (01) ==
LOC: HO.LNP 16:31
PROVIDERS: Visit Provider Internal Medicine Geriatric Medicine
DX: R82.90 Unspecified abnormal findings in urine (principal)
CPT/HCPCS: 81001; 87086